=== PATIENT | male | born 1950 | race Caucasian/White ===

== ENCOUNTER 2020-05-23 20:40 | Inpatient (IN) | payer MEDICARE ==
[~2020-05-23] VITALS: Ht 167.6 cm; Wt 67.3 kg
[~2020-05-23 20:40] MED LIST: ADENOSINE 6 MG/2 ML VIAL. IV ONE; EPINEPHrine SYRINGE 1 MG/10 ML SYRINGE ONE; MAGNESIUM SULFATE PREMIX 1 GM/100 ML BAG. IV ONE
[2020-05-23] MEDS ORDERED: PROPOFOL 100 ML IV ONE (20:57)
[2020-05-23] MEDS ORDERED: IV NORMAL SALINE 1000ML BAG 1,000 ML IV ONE (21:00)
[2020-05-23] MEDS ORDERED: NOREPINEPHRINE VIAL 8 MG in IV DEXTROSE 5% 250 ML IV ONE (21:15)
[2020-05-23] MEDS ORDERED: MAGNESIUM SULFATE 2 GM IV ONE (21:16)
--- NOTE | 2020-05-23 21:32 | RAD ---
Exam: Chest one view INDICATION: Intubation TECHNIQUE: Frontal view of the chest Comparisons: None FINDINGS: Endotracheal tube with tip approximately 4 cm above the lian. Enteric tube traverses below the diap hragm distal tip not visualized. The cardiomediastinal silhouette and pulmonary vessels are within normal limits. Diffuse interstitial opacities throughout the lungs. No pleural effusion. IMPRESSION: 1. Lines and tubes described above. 2. Diffuse interstitial opacities throughout the lungs. Electronically signed by: Rishi Mccray MD (05/23/2020 9:29 PM) RAMON
[2020-05-23] MEDS ORDERED: HEPARIN for IV BOLUS 10,000 UNIT/10 ML VIAL. ONE (21:36)
[2020-05-23 21:41] LABS: BASO # 0.1 x10^3/uL (0.0-0.2); BASO % 1 % (0-3); EOS % 0 % (0-3); HEMATOCRIT 47.8 % (39.0-53.0); HEMOGLOBIN 15.7 g/dL (13.0-17.5); LYMPH # 1.7 x10^3/uL (1.0-4.8); LYMPH % 8 % (24-48); MEAN CORPUSCULAR HEMOGLOBIN 30 pg (25-35); MEAN CORPUSCULAR HGB CONC 33 g/dL (31-37); MEAN CORPUSCULAR VOLUME 90 fL (79-100); MONO # 1.1 x10^3/uL (0.0-1.1); MONO % 5 % (0-9); NEUT # 17.9 x10^3/uL (1.8-7.7); NEUT % 86 % (31-73); PLATELET COUNT 207 x10^3/uL (140-400); RED BLOOD COUNT 5.29 x10^6/uL (4.30-5.70); RED CELL DISTRIBUTION WIDTH 13.3 % (11.5-14.5); WHITE BLOOD COUNT 20.9 x10^3/uL (4.0-11.0)
[2020-05-23] MEDS ORDERED: LIDOCAINE 1% Multi-Dose 20 ML VIAL. ONE (21:55)
[2020-05-23] MEDS ORDERED: IODIXANOL 320 MG/ML 100 ML VIAL. ONE (21:56)
[2020-05-23] MEDS ORDERED: BIVALIRUDIN 250 MG VIAL. IV ONE ×2 (21:58→23:00)
[2020-05-23 22:00] LABS: CALCIUM 8.9 mg/dL (8.5-10.1); CREATININE 1.2 mg/dL (0.7-1.3); GFR 60.4; POTASSIUM 4.4 mmol/L (3.5-5.1)
[2020-05-23] MEDS ORDERED: EPINEPHrine VIAL 5 MG in IV NORMAL SALINE 250ML 250 ML IV ONE (22:00)
[2020-05-23] MEDS ORDERED: HEPARIN for IV BOLUS 10,000 UNIT/10 ML VIAL. IV ONE (22:00)
--- NOTE | 2020-05-23 22:00 | PDOC ---
MODERATE SEDATION ASSESSMENT RISKS/ALTERNATIVES Risks/Alternatives Risks and alternatives of this type of sedation and procedure discussed with: RISK/ALTERNATIVES: Sig. Other H & P ON CHART H & P H & P on chart and reviewed for co-morbid conditions and appropriate labs. H&P ON CHART: Yes STATUS PREG STATUS ASSESSED: N/A MEDS/ALLERGIES REVIEWED Meds/Allergies Reviewed Medications and Allergies including time and route of recently administered narcotics and sedatives. MEDS/ALLERGIES REVIEWED: Yes ASA RATING ASA RATING: III AIRWAY ASSESSMENT Airway Assessment Airway patency, oral function limitations, presence of caps, crowns, dentures, partials, and ability to extend neck assessed. AIRWAY ASSESSMENT: Yes MALLAMPATI SCORE MALLAMPATI SCORE: II PRE-SEDATION ASSESSMENT PRE-SEDATION ASSESSMENT: Yes FREEMAN RAY MD May 23, 2020 22:00
--- NOTE | 2020-05-23 22:00 | PDOC2 ---
CONSULT Date of Consult Date of Consult DATE: 05/23/20 TIME: 21:59 Reason for Consult Reason for Consult: Acute STEMI Referring Physician Referring Physician: Dr. Velasquez Identification/Chief Complaint Chief Complaint Syncope Source Source: Caregiver History of Present Illness Reason for Visit: 69-year-old male without any previous cardiac history apparently was at the [facility] with his when he started feeling nauseated and diaphoretic. They decided to leave the [facility], patient drove them to their house and had a drink of pop to relieve his nausea. He however continued to be diaphoretic and had shortness of breath per his . She went into a different room to take care of something and heard a loud thud and came out to find that her passed out. She called EMS who found patient to be in ventricular fibrillation upon arrival and started CPR and defibrillated the patient. Patient apparently was coded for 10 minutes prior to arrival to ED. Initial EKG showed sinus rhythm with right bundle branch block and hence plan was to rule out acute PE with CTA of the chest. He had to be intubated for acute respiratory failure. Patient apparently had another episode of ventricular tachycardia/fibrillation and was successfully defibrillated. Subsequent EKG obtained in the ED showed ST elevations in the inferior leads and hence code STEMI was activated. Patient was taken emergently for cardiac catheterization. Of note, patient's stated that patient never complained of chest pain Past Medical History Cardiovascular: No pertinent hx Past Surgical History Past Surgical History Hernia repair Family History Family History Negative for premature coronary disease Social History Social History Per his , patient smokes cigarettes and marijuana but does not have any history of heavy alcohol use or illicit drug use. Current Medications Current Medications Current Medications Sodium Chloride 1,000 ml @ 1,000 mls/hr 1X ONCE IV ; Start 05/23/20 at 21:00; Stop 05/23/20 at 21:59 Propofol 100 ml @ As Directed STK-MED ONCE IV ; Start 05/23/20 at 20:57; Stop 05/23/20 at 20:57; Status DC Norepinephrine Bitartrate 8 mg/ Dextrose 258 ml @ 11.61 mls/ hr 1X ONCE IV ; Start 05/23/20 at 21:15; Stop 05/24/20 at 19:28 Magnesium Sulfate 50 ml @ As Directed STK-MED ONCE IV ; Start 05/23/20 at 21:16; Stop 05/23/20 at 21:16; Status DC Epinephrine HCl 5 mg/Sodium Chloride 255 ml @ 0.306 mls/ hr 1X ONCE IV Last administered on 05/23/20at 21:33; Start 05/23/20 at 22:00; Stop 06/27/20 at 15:19 Heparin Sodium (Porcine) (Heparin Sodium) 10,000 unit STK-MED ONCE .ROUTE ; Start 05/23/20 at 21:36; Stop 05/23/20 at 21:37; Status DC Aspirin (Aspirin Rectal Supp) 300 mg 1X ONCE [place] Last administered on 05/23/20at 21:45; Start 05/23/20 at 22:30; Stop 05/23/20 at 22:31 Heparin Sodium (Porcine) (Heparin Sodium) 4,000 unit 1X ONCE IV Last administered on 05/23/20at 21:54; Start 05/23/20 at 22:00; Stop 05/23/20 at 22:01 Lidocaine HCl (Lidocaine 1% 20ml Vial) 20 ml STK-MED ONCE .ROUTE ; Start 05/23/20 at 21:55; Stop 05/23/20 at 21:56; Status DC Heparin Sodium/ Sodium Chloride 1,000 ml @ As Directed STK-MED ONCE .ROUTE ; Start 05/23/20 at 21:56; Stop 05/23/20 at 21:56; Status DC Iodixanol (Visipaque 320) 100 ml STK-MED ONCE .ROUTE ; Start 05/23/20 at 21:56; Stop 05/23/20 at 21:56; Status DC Bivalirudin (Angiomax) 250 mg STK-MED ONCE IV ; Start 05/23/20 at 21:58; Stop 05/23/20 at 21:58; Status DC Allergies Allergies: Coded Allergies: No Known Drug Allergies (Unverified , 05/23/20) ROS Review of System Cannot be obtained since patient is intubated Physical Exam General: Other (Intubated and sedated) Lungs: Clear to auscultation Heart: Regular rate Abdomen: Soft Extremities: No edema Vitals VITALS Vital Signs Date Time Temp Pulse Resp B/P (MAP) Pulse Ox O2 Delivery O2 Flow Rate FiO2 05/23/20 20:55 99 Ventilator Labs Labs Laboratory Tests Test 05/23/20 21:10 White Blood Count 20.9 x10^3/uL (4.0-11.0) Red Blood Count 5.29 x10^6/uL (4.30-5.70) Hemoglobin 15.7 g/dL (13.0-17.5) Hematocrit 47.8 % (39.0-53.0) Mean Corpuscular Volume 90 fL (79-100) Mean Corpuscular Hemoglobin 30 pg (25-35) Mean Corpuscular Hemoglobin Concent 33 g/dL (31-37) Red Cell Distribution Width 13.3 % (11.5-14.5) Platelet Count 207 x10^3/uL (140-400) Neutrophils (%) (Auto) 86 % (31-73) Lymphocytes (%) (Auto) 8 % (24-48) Monocytes (%) (Auto) 5 % (0-9) Eosinophils (%) (Auto) 0 % (0-3) Basophils (%) (Auto) 1 % (0-3) Neutrophils # (Auto) 17.9 x10^3/uL (1.8-7.7) Lymphocytes # (Auto) 1.7 x10^3/uL (1.0-4.8) Monocytes # (Auto) 1.1 x10^3/uL (0.0-1.1) Eosinophils # (Auto) 0.0 x10^3/uL (0.0-0.7) Basophils # (Auto) 0.1 x10^3/uL (0.0-0.2) Laboratory Tests Test 05/23/20 21:10 White Blood Count 20.9 x10^3/uL (4.0-11.0) Red Blood Count 5.29 x10^6/uL (4.30-5.70) Hemoglobin 15.7 g/dL (13.0-17.5) Hematocrit 47.8 % (39.0-53.0) Mean Corpuscular Volume 90 fL (79-100) Mean Corpuscular Hemoglobin 30 pg (25-35) Mean Corpuscular Hemoglobin Concent 33 g/dL (31-37) Red Cell Distribution Width 13.3 % (11.5-14.5) Platelet Count 207 x10^3/uL (140-400) Neutrophils (%) (Auto) 86 % (31-73) Lymphocytes (%) (Auto) 8 % (24-48) Monocytes (%) (Auto) 5 % (0-9) Eosinophils (%) (Auto) 0 % (0-3) Basophils (%) (Auto) 1 % (0-3) Neutrophils # (Auto) 17.9 x10^3/uL (1.8-7.7) Lymphocytes # (Auto) 1.7 x10^3/uL (1.0-4.8) Monocytes # (Auto) 1.1 x10^3/uL (0.0-1.1) Eosinophils # (Auto) 0.0 x10^3/uL (0.0-0.7) Basophils # (Auto) 0.1 x10^3/uL (0.0-0.2) Assessment/Plan Assessment/Plan 1. Acute inferoposterior wall ST elevation myocardial infarction. We will proceed with emergent cardiac catheterization and primary PCI/stent placement. Risks and benefits were explained to patient's and she is agreeable. Start aspirin, heparin. We will administer Angiomax for PCI and start Plavix post procedure. 2. Ischemic VT/VF, cardiac arrest s/p successful defibrillation/resuscitation. We will continue to monitor and if he continues to have arrhythmias post procedure, we will consider initiation of amiodarone. 3. Acute respiratory failure secondary to above s/p intubation. Consult pulmonary team for vent management. 4. Hypotension presently needing pressor support. We will wean pressors off as tolerated in ICU. 5. Tobacco abuse Thank you for your consultation Total critical care time spent evaluating the patient and discussing options with 45 minutes. FREEMAN RAY MD May 23, 2020 21:59
[2020-05-23] MEDS ORDERED: MIDAZOLAM HCL/PF 5 MG/5 ML VIAL. ONE (22:01)
[2020-05-23] MEDS ORDERED: ETOMIDATE 20 MG/10 ML VIAL. IV ONE (22:01)
[2020-05-23] MEDS ORDERED: SUCCINYLCHOLINE 200 MG/10 ML VIAL. ONE (22:02)
[2020-05-23 22:04] LABS: % BANDS 1 % (0-9); % LYMPHS 10 % (24-48); % MONOS 4 % (0-10); % SEGS 85 % (35-66)
[2020-05-23 22:05] LABS: PLT ESTIMATE ADEQUATE (ADEQUATE)
[2020-05-23 22:06] LABS: ALBUMIN 2.5 g/dL (3.4-5.0); ALBUMIN/GLOBULIN RATIO 0.7 (1.0-1.7); MAGNESIUM 1.9 mg/dL (1.8-2.4); TOTAL BILIRUBIN 0.4 mg/dL (0.2-1.0); TOTAL PROTEIN 5.9 g/dL (6.4-8.2)
--- NOTE | 2020-05-23 22:08 | PHYS DOC ---
General Adult EDM: Chief Complaint: CHEST PAIN-CARDIAC NATURE HPI: HPI: Patient is a 69 year old male presents via EMS after cardiac arrest. Patient is a smoke and currently on no prescription medications. states patient was not feeling well all day. Patient was complaining of nausea. heard patient collapse. 911 ems called--- CPR with epi and defibrillation-- Patient coded for 10 minutes prior to arrival. On arrival patient was being bagged. He had an I/O left lower extremity. Patient with agonal breathing and gsc 3. Review of Systems: Review of Systems: Unable to obtain due to medical condition Heart Score: Risk Factors: Risk Factors: DM, Current or recent (<one month) smoker, HTN, HLP, family history of CAD, obesity. Risk Scores: Score 0 - 3: 2.5% MACE over next 6 weeks - Discharge Home Score 4 - 6: 20.3% MACE over next 6 weeks - Admit for Clinical Observation Score 7 - 10: 72.7% MACE over next 6 weeks - Early Invasive Strategies Current Medications: Current Medications Medications (Trade) Dose Ordered Sig/Karma Start Time Stop Time Status Last Admin Dose Admin Aspirin (Aspirin Rectal Supp) 300 mg 1X ONCE 05/23/20 22:30 05/23/20 22:31 05/23/20 21:45 300 MG Epinephrine HCl 5 mg/Sodium Chloride 255 ml @ 0.306 mls/ hr 1X ONCE 05/23/20 22:00 06/27/20 15:19 05/23/20 21:33 0.306 MLS/HR Heparin Sodium (Porcine) (Heparin Sodium) 4,000 unit 1X ONCE 05/23/20 22:00 05/23/20 22:01 UNV 05/23/20 21:54 4,000 UNIT Heparin Sodium/ Sodium Chloride 1,000 ml @ As Directed STK-MED ONCE 05/23/20 21:56 05/23/20 21:56 DC Iodixanol (Visipaque 320) 100 ml STK-MED ONCE 05/23/20 21:56 05/23/20 21:56 DC Lidocaine HCl (Lidocaine 1% 20ml Vial) 20 ml STK-MED ONCE 05/23/20 21:55 05/23/20 21:56 DC Magnesium Sulfate 50 ml @ As Directed STK-MED ONCE 05/23/20 21:16 2/24/21 21:16 DC Norepinephrine Bitartrate 8 mg/ Dextrose 258 ml @ 11.61 mls/ hr 1X ONCE 05/23/20 21:15 05/24/20 19:28 Propofol 100 ml @ As Directed STK-MED ONCE 05/23/20 20:57 05/23/20 20:57 DC Sodium Chloride 1,000 ml @ 1,000 mls/hr 1X ONCE 05/23/20 21:00 05/23/20 21:59 Allergies: Allergies: Allergies Coded Allergies Type Severity Reaction Last Updated Verified No Known Drug Allergies 05/23/20 No Physical Exam: PE: General: Unresponsive in acute distress Skin: warm, dry and intact. Head:: Normocephalic, atraumatic. Neck: Trachea midline. CARDIOVASCULAR: Tachycardia RESPIRATORY: Agonal breathing MUSCULOSKELETAL: No deformities of extremities no edema noted I/O left lower extremity-femoral head GASTROINTESTINAL: Abdomen soft without rebound or guarding. NEUROLOGICAL: Unresponsive no seizure-like activity Current Patient Data: Labs: Laboratory Tests Test 05/23/20 21:10 White Blood Count 20.9 x10^3/uL (4.0-11.0) H Red Blood Count 5.29 x10^6/uL (4.30-5.70) Hemoglobin 15.7 g/dL (13.0-17.5) Hematocrit 47.8 % (39.0-53.0) Mean Corpuscular Volume 90 fL (79-100) Mean Corpuscular Hemoglobin 30 pg (25-35) Mean Corpuscular Hemoglobin Concent 33 g/dL (31-37) Red Cell Distribution Width 13.3 % (11.5-14.5) Platelet Count 207 x10^3/uL (140-400) Neutrophils (%) (Auto) 86 % (31-73) H Lymphocytes (%) (Auto) 8 % (24-48) L Monocytes (%) (Auto) 5 % (0-9) Eosinophils (%) (Auto) 0 % (0-3) Basophils (%) (Auto) 1 % (0-3) Neutrophils # (Auto) 17.9 x10^3/uL (1.8-7.7) H Lymphocytes # (Auto) 1.7 x10^3/uL (1.0-4.8) Monocytes # (Auto) 1.1 x10^3/uL (0.0-1.1) Eosinophils # (Auto) 0.0 x10^3/uL (0.0-0.7) Basophils # (Auto) 0.1 x10^3/uL (0.0-0.2) Platelet Estimate Pending Laboratory Tests 05/23/20 21:10 Vital Signs: Vital Signs Date Time Temp Pulse Resp B/P (MAP) Pulse Ox O2 Delivery O2 Flow Rate FiO2 05/23/20 20:55 99 Ventilator EKG: EKG: [] EKG #1 sinus tachycardia rate of [address] depression V2 V3 V4 V5 EKG taken at 2041 EKG #2 sinus tachycardia heart rate [address] elevation in leads II, III, aVF depression aVL V2 V3 V4 V5 taken at 2108 EKG #3 post cardiac arrest with return of ROSC Heart rate 79 bigeminy EKG taken at 2118 EKG #4 sinus tachycardia rate of 109 ST elevation in lead III aVF ST changes V2 V3 V4 V5 taken at 2124 Radiology/Procedures: Radiology/Procedures: [] Impression: TECHNIQUE: Frontal view of the chest Comparisons: None FINDINGS: Endotracheal tube with tip approximately 4 cm above the lian. Enteric tube traverses below the diaphragm distal tip not visualized. The cardiomediastinal silhouette and pulmonary vessels are within normal limits. Diffuse interstitial opacities throughout the lungs. No pleural effusion. IMPRESSION: 1. Lines and tubes described above. 2. Diffuse interstitial opacities throughout the lungs. Course & Med Decision Making: Course & Med Decision Making Procedure Intubation- patient was intubated using a glide scope. 8.0 cuffed tube was utilized. Once cords were visualized to was passed. Cuff was inflated. Placement ET tube was confirmed with bilateral breath sounds and on chest x-ray. Tube was secured by respiratory therapy with the device. ET tube was 24 at the teeth. Central venous [id number] central line placed in right femoral. Procedure was performed under sterile technique. Line was placed using S fredidinger technique. Line was sutured into place Biopatch was utilized no complications Pertinent Labs and Imaging studies reviewed. (See chart for details) [] Waited for chief complaint. Work-up consisted of laboratory analysis radiologic imaging and EKG. Shortly after arrival patient was intubated with no complications. Central venous access placed in right groin. During ER stay patient went into cardiac arrest--- patient was coded per ACLS protocol please see code sheet. Cardiology was consulted reviewed EKGs patient eventually taken to cardiac [facility] Discussed patient condition with significant other and brother. Informed patient is in critical condition and the plan at the time is to take patient to the [facility]. Critical care time 45 minutes. Dragon Disclaimer: Dragon Disclaimer: This electronic medical record was generated, in whole or in part, using a voice recognition dictation system. Departure Departure Impression: Primary Impression: Cardiac arrest Disposition: ADMITTED INPT THIS HOSP Admitting Physician: MADDI Condition: CRITICAL Referrals: UNKNOWN PCP NAME (PCP) CRYSTAL KELSEY DO May 23, 2020 22:08
[2020-05-23] MEDS ORDERED: CONTRAST GIVEN. MC PRN (22:15)
[2020-05-23 22:29] LABS: PROTHROMBIN TIME PATIENT 14.7 SEC (11.7-14.0)
[2020-05-23] MEDS ORDERED: ASPIRIN RECTAL 300 MG SUPP. PR ONE (22:30)
[2020-05-23] MEDS ORDERED: CLOPIDOGREL BISULFATE 75 MG TABLET ONE (22:45)
[2020-05-23] MEDS ORDERED: IODIXANOL 320 MG/ML 100 ML VIAL. IART ONE (23:00)
[2020-05-23] MEDS ORDERED: CLOPIDOGREL BISULFATE 75 MG TABLET PO ONE (23:00)
[2020-05-23] MEDS ORDERED: NITROGLYCERIN SUBLINGUAL 0.4 MG BOTTLE OF 25. SL PRN (23:00)
[2020-05-23] MEDS ORDERED: PIPERACILLIN/TAZOBACTAM 4.5 GM in IV NORMAL SALINE 100ML 100 ML IV ONE (23:00)
[2020-05-23] MEDS ORDERED: IOHEXOL 350 MG/ML 100 ML VIAL. IV ONE (23:00)
[2020-05-23] MEDS ORDERED: LIDOCAINE 1% Multi-Dose 20 ML VIAL. INJ ONE (23:00)
[2020-05-23 23:15] VITALS: BP 164/90
[2020-05-23] MEDS ORDERED: AMIODARONE 150 MG/3 ML VIAL IVP ONE (23:45)
[2020-05-23 23:59] LABS: BASE EXCESS COOX -11 mmol/L (-3-3); HCO3 COOX 16 mmol/L (21-28); METHEMOGLOBIN 0.4 % (0.0-1.9); PCO2 COOX 38 mmHg (35-46); PO2 COOX 125 mmHg (65-108); SAT O2 COOX 98 % (92-99)
[2020-05-24] VITALS (28 sets, daily range): BP systolic 86–168; BP diastolic 57–85
[2020-05-24] MEDS ORDERED: ETOMIDATE 20 MG/10 ML VIAL. IV ONE
[2020-05-24] MEDS ORDERED: SUCCINYLCHOLINE 200 MG/10 ML VIAL. IV ONE
[2020-05-24] MEDS ORDERED: MIDAZOLAM HCL/PF 5 MG/5 ML VIAL. IV ONE
[2020-05-24] MEDS ORDERED: IV NORMAL SALINE 1000ML BAG 1,000 ML IV ONE ×2
[2020-05-24] MEDS ORDERED: EPINEPHrine SYRINGE 1 MG/10 ML SYRINGE IV ONE ×2 (00:15)
[2020-05-24] MEDS ORDERED: MAGNESIUM SULFATE 1GM 100 ML IV ONE (00:15)
[2020-05-24] MEDS ORDERED: MAGNESIUM SULFATE 2GM 50 ML IV ONE (00:30)
[2020-05-24] MEDS: IV 1/2 NORMAL SALINE 1,000 ML IV SCH ×2 (00:51→00:57)
--- NOTE | 2020-05-24 01:30 | NUR ---
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 Report from DOTTIE Henson from director of laboratory operations. Previous report from DOTTIE Penny/ED. Intubated, OG, and velazquez in place. Propofol, levophed, epi and NS infusing. Angiomax complete. Per paperwork patient with RCA stent. Angiocele in place, dry and intact. Bilateral lower extremities mottled, cool. Palpable pedal pulses. Blood cultures and Covid swab in ED. Dr. Nguyen notified of patient condition and blood gases. Order received to decreased tidal volumes. Notified RT Geo of changes. Changes made by RT Geo. Epi discontinued. NS changed to 1/2NS. Levophed and propofol titrated. Fentanyl for continuous pain control. VSS at this time. Will continue to monitor.
[2020-05-24] MEDS: PROPOFOL 100 ML IV PRN ×4 (03:27→20:40)
--- NOTE | 2020-05-24 04:17 | EKG ---
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
--- NOTE | 2020-05-24 04:24 | NUR ---
Contacted by [facility] Amira Umaña for information regarding patient's son who is in the . Advised to notify [facility] [place] of change in patient condition in order to provide information to son and reference case number. [facility] [phone] Case # [id number]
--- NOTE | 2020-05-24 04:28 | EKG ---
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
--- NOTE | 2020-05-24 04:28 | EKG ---
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
[2020-05-24 04:32] LABS: CHOLESTEROL/HDL RATIO 3.2
--- NOTE | 2020-05-24 07:17 | RAD ---
Study: XR CHEST 1V Indication: Endotracheal tube positioning. Comparison: 05/23/2020 Findings: Endotracheal tube tip 3 cm above the lian. Enteric tube terminates below the inferior field of view . Granular densities persist throughout both lungs. Increasing atelectasis at the right lung base. No p neumothorax. Impression: 1. Unchanged endotracheal tube position. 2. Overall similar extent of granular opacities throughout both lungs. Increasing basilar volume loss on the right. Electronically signed by: LORRAINE DALEY MD (05/24/2020 7:15 AM) [facility]
[2020-05-24 07:41] LABS: BASE EXCESS ABG -3 mmol/L (-3-3); HCO3 ABG 23 mmol/L (21-28); PCO2 ABG 42 mmHg (35-46); PO2 ABG 186 mmHg (65-108); SAT O2 ABG 99 % (92-99)
--- NOTE | 2020-05-24 08:23 | PDOC1 ---
History and Physical Date of Admission Date of Admission DATE: 05/24/20 TIME: 08:22 Identification/Chief Complaint Chief Complaint 69 YR OLD WM previous cardiac history apparently [facility] when he started feeling nauseated and diaphoretic. decided to leave the [employer], patient drove them to their house and had a drink of pop to relieve his nausea., continued to be diaphoretic and had shortness of breath per his . She went into a different room to take care of something and heard a loud thud and came out to find that her passed out. She called EMS who found patient to be in ventricular fibrillation upon arrival and started CPR and defibrillated the patient. coded for 10 minutes prior to arrival to ED. Initial EKG showed sinus rhythm with right bundle branch block and hence plan was to rule out acute PE with CTA of the chest. 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 AM Past Medical History Past Medical History Family History Family History: High Cholestrol, Hypertension Social History Smoke: <1 pack per day ALCOHOL: none Drugs: None Current Problem List Problem List Problems Medical Problems: (1) Cardiac arrest Status: Acute Current Medications Current Medications Current Medications Sodium Chloride 1,000 ml @ 1,000 mls/hr 1X ONCE IV Last administered on 05/23/20at 20:50; Start 05/23/20 at 21:00; Stop 05/23/20 at 21:59; Status DC Propofol 100 ml @ As Directed STK-MED ONCE IV ; Start 05/23/20 at 20:57; Stop 05/23/20 at 20:57; Status DC Norepinephrine Bitartrate 8 mg/ Dextrose 258 ml @ 11.61 mls/ hr 1X ONCE IV ; Start 05/23/20 at 21:15; Stop 05/24/20 at 19:28 Magnesium Sulfate 0 ml @ As Directed STK-MED ONCE IV ; Start 05/23/20 at 21:16; Stop 05/23/20 at 21:16; Status DC Epinephrine HCl 5 mg/Sodium Chloride 255 ml @ 0.306 mls/ hr 1X ONCE IV Last administered on 05/23/20at 21:33; Start 05/23/20 at 22:00; Stop 06/27/20 at 15:19 Heparin Sodium (Porcine) (Heparin Sodium) 10,000 unit STK-MED ONCE .ROUTE ; Start 05/23/20 at 21:36; Stop 05/23/20 at 21:37; Status DC Aspirin (Aspirin Rectal Supp) 300 mg 1X ONCE [place] Last administered on 05/23/20at 21:45; Start 05/23/20 at 22:30; Stop 05/23/20 at 22:31; Status DC Heparin Sodium (Porcine) (Heparin Sodium) 4,000 unit 1X ONCE IV Last administered on 05/23/20at 21:54; Start 05/23/20 at 22:00; Stop 05/23/20 at 22:01; Status DC Lidocaine HCl (Lidocaine 1% 20ml Vial) 20 ml STK-MED ONCE .ROUTE ; Start 05/23/20 at 21:55; Stop 05/23/20 at 21:56; Status DC Heparin Sodium/ Sodium Chloride 1,000 ml @ As Directed STK-MED ONCE .ROUTE ; Start 05/23/20 at 21:56; Stop 05/23/20 at 21:56; Status DC Iodixanol (Visipaque 320) 100 ml STK-MED ONCE .ROUTE ; Start 05/23/20 at 21:56; Stop 05/23/20 at 21:56; Status DC Bivalirudin (Angiomax) 250 mg STK-MED ONCE IV ; Start 05/23/20 at 21:58; Stop 05/23/20 at 21:58; Status DC Etomidate (Amidate) 20 mg STK-MED ONCE IV ; Start 05/23/20 at 22:01; Stop 05/23/20 at 22:02; Status DC Midazolam HCl (Versed) 5 mg STK-MED ONCE .ROUTE ; Start 05/23/20 at 22:01; Stop 05/23/20 at 22:02; Status DC Succinylcholine Chloride (Anectine) 200 mg STK-MED ONCE .ROUTE ; Start 05/23/20 at 22:02; Stop 05/23/20 at 22:02; Status DC Iohexol (Omnipaque 350 Mg/ml) 100 ml 1X ONCE IV ; Start 05/23/20 at 23:00; Stop 05/23/20 at 23:01; Status DC Info (CONTRAST GIVEN -- Rx MONITORING) 1 each PRN DAILY PRN MC SEE COMMENTS; Start 05/23/20 at 22:15; Stop 05/25/20 at 22:14 Piperacillin Sod/ Tazobactam Sod 4.5 gm/Sodium Chloride 100 ml @ 200 mls/hr 1X ONCE IV Last administered on 05/24/20at 00:49; Start 05/23/20 at 23:00; Stop 05/23/20 at 23:29; Status DC Heparin Sodium/ Sodium Chloride (HEPARIN for ARTERIAL LINE FLUSH) 1,000 unit 1X ONCE IART Last administered on 05/23/20at 23:19; Start 05/23/20 at 23:00; Stop 05/23/20 at 23:01; Status DC Iodixanol (Visipaque 320) 100 ml 1X ONCE IART Last administered on 05/23/20at 23:19; Start 05/23/20 at 23:00; Stop 05/23/20 at 23:01; Status DC Bivalirudin (Angiomax) 250 mg 1X ONCE IV Last administered on 05/23/20at 23:23; Start 05/23/20 at 23:00; Stop 05/23/20 at 23:01; Status DC Lidocaine HCl (Lidocaine 1% 20ml Vial) 20 ml 1X ONCE INJ Last administered on 05/23/20at 23:22; Start 05/23/20 at 23:00; Stop 05/23/20 at 23:01; Status DC Clopidogrel Bisulfate (Plavix) 600 mg 1X ONCE PO Last administered on 05/23/20at 23:23; Start 05/23/20 at 23:00; Stop 05/23/20 at 23:01; Status DC Clopidogrel Bisulfate (Plavix) 75 mg STK-MED ONCE .ROUTE ; Start 05/23/20 at 22:45; Stop 05/23/20 at 22:45; Status DC Sodium Chloride 1,000 ml @ 75 mls/hr [id number] IV Last administered on 05/24/20at 00:57; Start 05/23/20 at 23:00 Aspirin (Ecotrin) 325 mg DAILYWBKFT PO ; Start 05/24/20 at 08:00 Clopidogrel Bisulfate (Plavix) 75 mg DAILYWBKFT PO ; Start 05/24/20 at 08:00 Metoprolol Tartrate (Lopressor) 12.5 mg BID PO ; Start 05/24/20 at 09:00 Atorvastatin Calcium (Lipitor) 40 mg QHS PO ; Start 05/24/20 at 21:00 Nitroglycerin (Nitrostat) 0.4 mg PRN Q5MIN PRN SL CHEST PAIN; Start 05/23/20 at 23:00 Fentanyl Citrate 30 ml @ 0 mls/hr CONT PRN IV SEE PROTOCOL Last administered on 05/24/20at 00:44; Start 05/23/20 at 23:15 Propofol 100 ml @ 0 mls/hr CONT PRN IV PER PROTOCOL Last administered on 05/24/20at 07:41; Start 05/23/20 at 23:15 Amiodarone HCl (Cordarone) 300 mg 1X ONCE IVP Last administered on 05/23/20at 21:23; Start 05/23/20 at 23:45; Stop 05/23/20 at 23:46; Status DC Etomidate (Amidate) 20 mg 1X ONCE IV Last administered on 05/23/20at 20:43; Start 05/24/20 at 00:00; Stop 05/24/20 at 00:03; Status DC Succinylcholine Chloride (Anectine) 100 mg 1X ONCE IV Last administered on 05/23/20at 20:43; Start 05/24/20 at 00:00; Stop 05/24/20 at 00:03; Status DC Midazolam HCl (Versed) 10 mg 1X ONCE IV Last administered on 05/23/20at 20:56; Start 05/24/20 at 00:00; Stop 05/24/20 at 00:03; Status DC Magnesium Sulfate 50 ml @ 25 mls/hr 1X ONCE IV Last administered on 05/24/20at 04:40; Start 05/24/20 at 00:30; Stop 05/24/20 at 02:29; Status DC Sodium Chloride 1,000 ml @ 1,000 mls/hr 1X ONCE IV Last administered on 05/23/20at 21:00; Start 05/24/20 at 00:00; Stop 05/24/20 at 00:59; Status DC Sodium Chloride 1,000 ml @ 1,000 mls/hr 1X ONCE IV Last administered on 05/24/20at 00:53; Start 05/24/20 at 00:00; Stop 05/24/20 at 00:59; Status DC Magnesium Sulfate/ Dextrose 100 ml @ 100 mls/hr 1X ONCE IV Last administered on 05/23/20at 21:20; Start 05/24/20 at 00:15; Stop 05/24/20 at 01:14; Status DC Epinephrine HCl (EPINEPHrine SYRINGE) 1 mg 1X ONCE IV Last administered on 05/23/20at 21:16; Start 05/24/20 at 00:15; Stop 05/24/20 at 00:20; Status DC Epinephrine HCl (EPINEPHrine SYRINGE) 1 mg 1X ONCE IV Last administered on 05/23/20at 21:29; Start 05/24/20 at 00:15; Stop 05/24/20 at 00:20; Status DC Allergies Allergies: Coded Allergies: No Known Drug Allergies (Unverified , 05/23/20) ROS Review of System UNABLE TO PROVID, SEDATED ON VENT Physical Exam General: No acute distress Lungs: Clear to auscultation Abdomen: Normal bowel sounds, Soft Rectal Exam: not examined Extremities: No cyanosis, No edema Vitals Vitals Vital Signs Date Time Temp Pulse Resp B/P (MAP) Pulse Ox O2 Delivery O2 Flow Rate FiO2 05/24/20 07:55 100 Ventilator 05/24/20 07:26 98.7 89 20 161/85 (110) 98.7 Labs Labs Laboratory Tests Test 05/23/20 21:10 05/23/20 21:30 05/23/20 23:56 05/24/20 03:45 White Blood Count 20.9 x10^3/uL (4.0-11.0) Red Blood Count 5.29 x10^6/uL (4.30-5.70) Hemoglobin 15.7 g/dL (13.0-17.5) Hematocrit 47.8 % (39.0-53.0) Mean Corpuscular Volume 90 fL (79-100) Mean Corpuscular Hemoglobin 30 pg (25-35) Mean Corpuscular Hemoglobin Concent 33 g/dL (31-37) Red Cell Distribution Width 13.3 % (11.5-14.5) Platelet Count 207 x10^3/uL (140-400) Neutrophils (%) (Auto) 86 % (31-73) Lymphocytes (%) (Auto) 8 % (24-48) Monocytes (%) (Auto) 5 % (0-9) Eosinophils (%) (Auto) 0 % (0-3) Basophils (%) (Auto) 1 % (0-3) Neutrophils # (Auto) 17.9 x10^3/uL (1.8-7.7) Lymphocytes # (Auto) 1.7 x10^3/uL (1.0-4.8) Monocytes # (Auto) 1.1 x10^3/uL (0.0-1.1) Eosinophils # (Auto) 0.0 x10^3/uL (0.0-0.7) Basophils # (Auto) 0.1 x10^3/uL (0.0-0.2) Segmented Neutrophils % 85 % (35-66) Band Neutrophils % 1 % (0-9) Lymphocytes % 10 % (24-48) Monocytes % 4 % (0-10) Platelet Estimate Adequate (ADEQUATE) Prothrombin Time 14.7 SEC (11.7-14.0) Prothromb Time International Ratio 1.2 (0.8-1.1) Activated Partial Thromboplast Time 35 SEC (24-38) D-Dimer (Reanna) > 20.00 ug/mlFEU Sodium Level 137 mmol/L (136-145) Potassium Level 4.4 mmol/L (3.5-5.1) Chloride Level 102 mmol/L (98-107) Carbon Dioxide Level 21 mmol/L (21-32) Anion Gap 14 (6-14) Blood Urea Nitrogen 10 mg/dL (8-26) Creatinine 1.2 mg/dL (0.7-1.3) Estimated GFR (Cockcroft-Gault) 60.4 BUN/Creatinine Ratio 8 (6-20) Glucose Level 264 mg/dL (70-99) Lactic Acid Level 8.3 mmol/L (0.4-2.0) Calcium Level 8.9 mg/dL (8.5-10.1) Magnesium Level 1.9 mg/dL (1.8-2.4) 1.9 mg/dL (1.8-2.4) Total Bilirubin 0.4 mg/dL (0.2-1.0) Aspartate Amino Transf (AST/SGOT) 33 U/L (15-37) Alanine Aminotransferase (ALT/SGPT) 35 U/L (16-63) Alkaline Phosphatase 90 U/L (46-116) Troponin I Quantitative 0.066 ng/mL (0.000-0.055) 5.355 ng/mL (0.000-0.055) OX-Vtr-D-Type Natriuretic Peptide 199 pg/mL (0-124) Total Protein 5.9 g/dL (6.4-8.2) Albumin 2.5 g/dL (3.4-5.0) Albumin/Globulin Ratio 0.7 (1.0-1.7) SARS-CoV-2 Antigen (Rapid) Negative (NEGATIVE) O2 Saturation 98 % (92-99) Arterial Blood pH 7.24 (7.35-7.45) Arterial Blood pCO2 at Patient Temp 38 mmHg (35-46) Arterial Blood pO2 at Patient Temp 125 mmHg (65-108) Arterial Blood HCO3 16 mmol/L (21-28) Arterial Blood Base Excess -11 mmol/L (-3-3) Oxyhemoglobin 96.0 % Methemoglobin 0.4 % (0.0-1.9) Carbon Monoxide, Quantitative 1.6 % (0.0-1.9) FiO2 100 Triglycerides Level 108 mg/dL (0-150) Cholesterol Level 136 mg/dL (0-200) LDL Cholesterol, Calculated 72 mg/dL (0-100) VLDL Cholesterol, Calculated 22 mg/dL (0-40) Non-HDL Cholesterol Calculated 94 mg/dL (0-129) HDL Cholesterol 42 mg/dL (40-60) Cholesterol/HDL Ratio 3.2 Laboratory Tests Test 05/23/20 21:10 05/23/20 21:30 05/23/20 23:56 05/24/20 03:45 White Blood Count 20.9 x10^3/uL (4.0-11.0) Red Blood Count 5.29 x10^6/uL (4.30-5.70) Hemoglobin 15.7 g/dL (13.0-17.5) Hematocrit 47.8 % (39.0-53.0) Mean Corpuscular Volume 90 fL (79-100) Mean Corpuscular Hemoglobin 30 pg (25-35) Mean Corpuscular Hemoglobin Concent 33 g/dL (31-37) Red Cell Distribution Width 13.3 % (11.5-14.5) Platelet Count 207 x10^3/uL (140-400) Neutrophils (%) (Auto) 86 % (31-73) Lymphocytes (%) (Auto) 8 % (24-48) Monocytes (%) (Auto) 5 % (0-9) Eosinophils (%) (Auto) 0 % (0-3) Basophils (%) (Auto) 1 % (0-3) Neutrophils # (Auto) 17.9 x10^3/uL (1.8-7.7) Lymphocytes # (Auto) 1.7 x10^3/uL (1.0-4.8) Monocytes # (Auto) 1.1 x10^3/uL (0.0-1.1) Eosinophils # (Auto) 0.0 x10^3/uL (0.0-0.7) Basophils # (Auto) 0.1 x10^3/uL (0.0-0.2) Segmented Neutrophils % 85 % (35-66) Band Neutrophils % 1 % (0-9) Lymphocytes % 10 % (24-48) Monocytes % 4 % (0-10) Platelet Estimate Adequate (ADEQUATE) Prothrombin Time 14.7 SEC (11.7-14.0) Prothromb Time International Ratio 1.2 (0.8-1.1) Activated Partial Thromboplast Time 35 SEC (24-38) D-Dimer (Reanna) > 20.00 ug/mlFEU Sodium Level 137 mmol/L (136-145) Potassium Level 4.4 mmol/L (3.5-5.1) Chloride Level 102 mmol/L (98-107) Carbon Dioxide Level 21 mmol/L (21-32) Anion Gap 14 (6-14) Blood Urea Nitrogen 10 mg/dL (8-26) Creatinine 1.2 mg/dL (0.7-1.3) Estimated GFR (Cockcroft-Gault) 60.4 BUN/Creatinine Ratio 8 (6-20) Glucose Level 264 mg/dL (70-99) Lactic Acid Level 8.3 mmol/L (0.4-2.0) Calcium Level 8.9 mg/dL (8.5-10.1) Magnesium Level 1.9 mg/dL (1.8-2.4) 1.9 mg/dL (1.8-2.4) Total Bilirubin 0.4 mg/dL (0.2-1.0) Aspartate Amino Transf (AST/SGOT) 33 U/L (15-37) Alanine Aminotransferase (ALT/SGPT) 35 U/L (16-63) Alkaline Phosphatase 90 U/L (46-116) Troponin I Quantitative 0.066 ng/mL (0.000-0.055) 5.355 ng/mL (0.000-0.055) LC-Ndz-B-Type Natriuretic Peptide 199 pg/mL (0-124) Total Protein 5.9 g/dL (6.4-8.2) Albumin 2.5 g/dL (3.4-5.0) Albumin/Globulin Ratio 0.7 (1.0-1.7) SARS-CoV-2 Antigen (Rapid) Negative (NEGATIVE) O2 Saturation 98 % (92-99) Arterial Blood pH 7.24 (7.35-7.45) Arterial Blood pCO2 at Patient Temp 38 mmHg (35-46) Arterial Blood pO2 at Patient Temp 125 mmHg (65-108) Arterial Blood HCO3 16 mmol/L (21-28) Arterial Blood Base Excess -11 mmol/L (-3-3) Oxyhemoglobin 96.0 % Methemoglobin 0.4 % (0.0-1.9) Carbon Monoxide, Quantitative 1.6 % (0.0-1.9) FiO2 100 Triglycerides Level 108 mg/dL (0-150) Cholesterol Level 136 mg/dL (0-200) LDL Cholesterol, Calculated 72 mg/dL (0-100) VLDL Cholesterol, Calculated 22 mg/dL (0-40) Non-HDL Cholesterol Calculated 94 mg/dL (0-129) HDL Cholesterol 42 mg/dL (40-60) Cholesterol/HDL Ratio 3.2 Images Images Exam: Chest one view INDICATION: Intubation TECHNIQUE: Frontal view of the chest Comparisons: None FINDINGS: Endotracheal tube with tip approximately 4 cm above the lian. Enteric tube traverses below the diaphragm distal tip not visualized. The cardiomediastinal silhouette and pulmonary vessels are within normal limits. Diffuse interstitial opacities throughout the lungs. No pleural effusion. IMPRESSION: 1. Lines and tubes described above. 2. Diffuse interstitial opacities throughout the lungs. Electronically signed by: Rishi Flores MD (05/23/2020 9:29 PM) [facility] DICTATED and SIGNED BY: RISHI FLORES MD DATE: 05/23/20 [id number] tudy: XR CHEST 1V Indication: Endotracheal tube positioning. Comparison: 05/23/2020 Findings: Endotracheal tube tip 3 cm above the lian. Enteric tube terminates below the inferior field of view. Granular densities persist throughout both lungs. Increasing atelectasis at the right lung base. No pneumothorax. Impression: 1. Unchanged endotracheal tube position. 2. Overall similar extent of granular opacities throughout both lungs. Increasing basilar volume loss on the right. Electronically signed by: LORRAINE DALEY MD (05/24/2020 7:15 AM) [facility] DICTATED and SIGNED BY: LORRAINE DALEY MD DATE: 05/24/20 [id number] VTE Prophylaxis Ordered VTE Prophylaxis Devices: Yes VTE Pharmacological Prophylaxi: Yes Assessment/Plan Assessment/Plan Impression: Cardiac arrest Severe single-vessel coronary disease involving the right coronary artery Successful PCI/drug-eluting stent placement to RCA Normal left ventricle systolic function with ejection fraction estimated at 55% STEMI. Tobacco abuse disorder ischemic v tach ADMITTED icu bed Aspirin 325 mg daily Plavix 75 mg daily wean off pressors and ventilator CARDIOLOGY CONSULT PULM CONSULT gi prophylaxis emergent cardiac catheterization and primary PCI/stent placement. CTA OF CHEST URINE DRUG SCREEN CBC IN AM Procalcitonin 60 min cc time dictated Justifications for Admission Other Justification FRIEDA TEAGUE MD May 24, 2020 08:23
[2020-05-24] MEDS: METOPROLOL TART IMMED RELEASE 25 MG TABLET. PO SCH ×2 (08:40→20:41)
[2020-05-24] MEDS: ASPIRIN ENTERIC COATED 325 MG TABLET.DR. PO SCH (08:40)
[2020-05-24] MEDS: CLOPIDOGREL BISULFATE 75 MG TABLET PO SCH (08:40)
[2020-05-24 09:36] LABS: CREATININE 0.9 mg/dL (0.7-1.3); GFR 84.2; POTASSIUM 4.9 mmol/L (3.5-5.1)
[2020-05-24 09:39] LABS: FIO2 ABG 70/VENT
--- NOTE | 2020-05-24 10:05 | EKG ---
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
--- NOTE | 2020-05-24 12:09 | PDOC ---
PULMONARY PROGRESS NOTES DATE: 05/24/20 TIME: 12:08 Vitals Vital Signs Date Time Temp Pulse Resp B/P (MAP) Pulse Ox O2 Delivery O2 Flow Rate FiO2 05/24/20 11:33 100 Ventilator 05/24/20 10:05 97 20 136/78 (97) 05/24/20 07:26 98.7 98.7 Labs Laboratory Tests Test 05/23/20 21:10 05/23/20 21:30 05/23/20 23:56 05/24/20 03:45 White Blood Count 20.9 x10^3/uL (4.0-11.0) Red Blood Count 5.29 x10^6/uL (4.30-5.70) Hemoglobin 15.7 g/dL (13.0-17.5) Hematocrit 47.8 % (39.0-53.0) Mean Corpuscular Volume 90 fL (79-100) Mean Corpuscular Hemoglobin 30 pg (25-35) Mean Corpuscular Hemoglobin Concent 33 g/dL (31-37) Red Cell Distribution Width 13.3 % (11.5-14.5) Platelet Count 207 x10^3/uL (140-400) Neutrophils (%) (Auto) 86 % (31-73) Lymphocytes (%) (Auto) 8 % (24-48) Monocytes (%) (Auto) 5 % (0-9) Eosinophils (%) (Auto) 0 % (0-3) Basophils (%) (Auto) 1 % (0-3) Neutrophils # (Auto) 17.9 x10^3/uL (1.8-7.7) Lymphocytes # (Auto) 1.7 x10^3/uL (1.0-4.8) Monocytes # (Auto) 1.1 x10^3/uL (0.0-1.1) Eosinophils # (Auto) 0.0 x10^3/uL (0.0-0.7) Basophils # (Auto) 0.1 x10^3/uL (0.0-0.2) Segmented Neutrophils % 85 % (35-66) Band Neutrophils % 1 % (0-9) Lymphocytes % 10 % (24-48) Monocytes % 4 % (0-10) Platelet Estimate Adequate (ADEQUATE) Prothrombin Time 14.7 SEC (11.7-14.0) Prothromb Time International Ratio 1.2 (0.8-1.1) Activated Partial Thromboplast Time 35 SEC (24-38) D-Dimer (Reanna) > 20.00 ug/mlFEU Sodium Level 137 mmol/L (136-145) Potassium Level 4.4 mmol/L (3.5-5.1) Chloride Level 102 mmol/L (98-107) Carbon Dioxide Level 21 mmol/L (21-32) Anion Gap 14 (6-14) Blood Urea Nitrogen 10 mg/dL (8-26) Creatinine 1.2 mg/dL (0.7-1.3) Estimated GFR (Cockcroft-Gault) 60.4 BUN/Creatinine Ratio 8 (6-20) Glucose Level 264 mg/dL (70-99) Lactic Acid Level 8.3 mmol/L (0.4-2.0) Calcium Level 8.9 mg/dL (8.5-10.1) Magnesium Level 1.9 mg/dL (1.8-2.4) 1.9 mg/dL (1.8-2.4) Total Bilirubin 0.4 mg/dL (0.2-1.0) Aspartate Amino Transf (AST/SGOT) 33 U/L (15-37) Alanine Aminotransferase (ALT/SGPT) 35 U/L (16-63) Alkaline Phosphatase 90 U/L (46-116) Troponin I Quantitative 0.066 ng/mL (0.000-0.055) 5.355 ng/mL (0.000-0.055) IK-Gkv-F-Type Natriuretic Peptide 199 pg/mL (0-124) Total Protein 5.9 g/dL (6.4-8.2) Albumin 2.5 g/dL (3.4-5.0) Albumin/Globulin Ratio 0.7 (1.0-1.7) SARS-CoV-2 Antigen (Rapid) Negative (NEGATIVE) O2 Saturation 98 % (92-99) Arterial Blood pH 7.24 (7.35-7.45) Arterial Blood pCO2 at Patient Temp 38 mmHg (35-46) Arterial Blood pO2 at Patient Temp 125 mmHg (65-108) Arterial Blood HCO3 16 mmol/L (21-28) Arterial Blood Base Excess -11 mmol/L (-3-3) Oxyhemoglobin 96.0 % Methemoglobin 0.4 % (0.0-1.9) Carbon Monoxide, Quantitative 1.6 % (0.0-1.9) FiO2 100 Triglycerides Level 108 mg/dL (0-150) Cholesterol Level 136 mg/dL (0-200) LDL Cholesterol, Calculated 72 mg/dL (0-100) VLDL Cholesterol, Calculated 22 mg/dL (0-40) Non-HDL Cholesterol Calculated 94 mg/dL (0-129) HDL Cholesterol 42 mg/dL (40-60) Cholesterol/HDL Ratio 3.2 Test 05/24/20 07:30 05/24/20 09:00 O2 Saturation 99 % (92-99) Arterial Blood pH 7.35 (7.35-7.45) Arterial Blood pCO2 at Patient Temp 42 mmHg (35-46) Arterial Blood pO2 at Patient Temp 186 mmHg (65-108) Arterial Blood HCO3 23 mmol/L (21-28) Arterial Blood Base Excess -3 mmol/L (-3-3) FiO2 70/vent Sodium Level 139 mmol/L (136-145) Potassium Level 4.9 mmol/L (3.5-5.1) Chloride Level 106 mmol/L (98-107) Carbon Dioxide Level 26 mmol/L (21-32) Anion Gap 7 (6-14) Blood Urea Nitrogen 11 mg/dL (8-26) Creatinine 0.9 mg/dL (0.7-1.3) Estimated GFR (Cockcroft-Gault) 84.2 Glucose Level 95 mg/dL (70-99) Lactic Acid Level 1.1 mmol/L (0.4-2.0) Calcium Level 8.0 mg/dL (8.5-10.1) Laboratory Tests Test 05/23/20 21:10 05/23/20 21:30 05/23/20 23:56 05/24/20 03:45 White Blood Count 20.9 x10^3/uL (4.0-11.0) Red Blood Count 5.29 x10^6/uL (4.30-5.70) Hemoglobin 15.7 g/dL (13.0-17.5) Hematocrit 47.8 % (39.0-53.0) Mean Corpuscular Volume 90 fL (79-100) Mean Corpuscular Hemoglobin 30 pg (25-35) Mean Corpuscular Hemoglobin Concent 33 g/dL (31-37) Red Cell Distribution Width 13.3 % (11.5-14.5) Platelet Count 207 x10^3/uL (140-400) Neutrophils (%) (Auto) 86 % (31-73) Lymphocytes (%) (Auto) 8 % (24-48) Monocytes (%) (Auto) 5 % (0-9) Eosinophils (%) (Auto) 0 % (0-3) Basophils (%) (Auto) 1 % (0-3) Neutrophils # (Auto) 17.9 x10^3/uL (1.8-7.7) Lymphocytes # (Auto) 1.7 x10^3/uL (1.0-4.8) Monocytes # (Auto) 1.1 x10^3/uL (0.0-1.1) Eosinophils # (Auto) 0.0 x10^3/uL (0.0-0.7) Basophils # (Auto) 0.1 x10^3/uL (0.0-0.2) Segmented Neutrophils % 85 % (35-66) Band Neutrophils % 1 % (0-9) Lymphocytes % 10 % (24-48) Monocytes % 4 % (0-10) Platelet Estimate Adequate (ADEQUATE) Prothrombin Time 14.7 SEC (11.7-14.0) Prothromb Time International Ratio 1.2 (0.8-1.1) Activated Partial Thromboplast Time 35 SEC (24-38) D-Dimer (Reanna) > 20.00 ug/mlFEU Sodium Level 137 mmol/L (136-145) Potassium Level 4.4 mmol/L (3.5-5.1) Chloride Level 102 mmol/L (98-107) Carbon Dioxide Level 21 mmol/L (21-32) Anion Gap 14 (6-14) Blood Urea Nitrogen 10 mg/dL (8-26) Creatinine 1.2 mg/dL (0.7-1.3) Estimated GFR (Cockcroft-Gault) 60.4 BUN/Creatinine Ratio 8 (6-20) Glucose Level 264 mg/dL (70-99) Lactic Acid Level 8.3 mmol/L (0.4-2.0) Calcium Level 8.9 mg/dL (8.5-10.1) Magnesium Level 1.9 mg/dL (1.8-2.4) 1.9 mg/dL (1.8-2.4) Total Bilirubin 0.4 mg/dL (0.2-1.0) Aspartate Amino Transf (AST/SGOT) 33 U/L (15-37) Alanine Aminotransferase (ALT/SGPT) 35 U/L (16-63) Alkaline Phosphatase 90 U/L (46-116) Troponin I Quantitative 0.066 ng/mL (0.000-0.055) 5.355 ng/mL (0.000-0.055) IU-Wsj-Q-Type Natriuretic Peptide 199 pg/mL (0-124) Total Protein 5.9 g/dL (6.4-8.2) Albumin 2.5 g/dL (3.4-5.0) Albumin/Globulin Ratio 0.7 (1.0-1.7) SARS-CoV-2 Antigen (Rapid) Negative (NEGATIVE) O2 Saturation 98 % (92-99) Arterial Blood pH 7.24 (7.35-7.45) Arterial Blood pCO2 at Patient Temp 38 mmHg (35-46) Arterial Blood pO2 at Patient Temp 125 mmHg (65-108) Arterial Blood HCO3 16 mmol/L (21-28) Arterial Blood Base Excess -11 mmol/L (-3-3) Oxyhemoglobin 96.0 % Methemoglobin 0.4 % (0.0-1.9) Carbon Monoxide, Quantitative 1.6 % (0.0-1.9) FiO2 100 Triglycerides Level 108 mg/dL (0-150) Cholesterol Level 136 mg/dL (0-200) LDL Cholesterol, Calculated 72 mg/dL (0-100) VLDL Cholesterol, Calculated 22 mg/dL (0-40) Non-HDL Cholesterol Calculated 94 mg/dL (0-129) HDL Cholesterol 42 mg/dL (40-60) Cholesterol/HDL Ratio 3.2 Test 05/24/20 07:30 05/24/20 09:00 O2 Saturation 99 % (92-99) Arterial Blood pH 7.35 (7.35-7.45) Arterial Blood pCO2 at Patient Temp 42 mmHg (35-46) Arterial Blood pO2 at Patient Temp 186 mmHg (65-108) Arterial Blood HCO3 23 mmol/L (21-28) Arterial Blood Base Excess -3 mmol/L (-3-3) FiO2 70/vent Sodium Level 139 mmol/L (136-145) Potassium Level 4.9 mmol/L (3.5-5.1) Chloride Level 106 mmol/L (98-107) Carbon Dioxide Level 26 mmol/L (21-32) Anion Gap 7 (6-14) Blood Urea Nitrogen 11 mg/dL (8-26) Creatinine 0.9 mg/dL (0.7-1.3) Estimated GFR (Cockcroft-Gault) 84.2 Glucose Level 95 mg/dL (70-99) Lactic Acid Level 1.1 mmol/L (0.4-2.0) Calcium Level 8.0 mg/dL (8.5-10.1) Impression . Full consult dictated Respiratory arrest secondary to adequate hospital cardiopulmonary arrest Status post PCI to the RCA S T-segment elevation GA. MESERET OTOOLE MD May 24, 2020 12:09
[2020-05-24] MEDS ORDERED: FUROSEMIDE 40 MG/4 ML VIAL. IVP ONE (12:15)
--- NOTE | 2020-05-24 12:23 | PDOC ---
KARLIE CADENA SUPERVISOR STAGE CARPENTRY 05/24/20 1223: CARDIO Progress Notes Date and Time Date of Service 05/24/2020 Time of Evaluation 1050 Subjective Subjective: Other (intubated) Vitals Vitals Vital Signs Date Time Temp Pulse Resp B/P (MAP) Pulse Ox O2 Delivery O2 Flow Rate FiO2 05/24/20 11:33 100 Ventilator 05/24/20 10:05 97 20 136/78 (97) 05/24/20 07:26 98.7 98.7 Weight Weight [ ] Input and Output Intake and Output Intake and Output 05/24/20 07:00 Intake Total 1867.6 ml Output Total 850 ml Balance 1017.6 ml Intake Oral 0 ml IV Total 1867.6 ml Output Urine Total 850 ml Laboratory Labs Laboratory Tests Test 05/23/20 21:10 05/23/20 21:30 05/23/20 23:56 05/24/20 03:45 White Blood Count 20.9 x10^3/uL (4.0-11.0) Red Blood Count 5.29 x10^6/uL (4.30-5.70) Hemoglobin 15.7 g/dL (13.0-17.5) Hematocrit 47.8 % (39.0-53.0) Mean Corpuscular Volume 90 fL (79-100) Mean Corpuscular Hemoglobin 30 pg (25-35) Mean Corpuscular Hemoglobin Concent 33 g/dL (31-37) Red Cell Distribution Width 13.3 % (11.5-14.5) Platelet Count 207 x10^3/uL (140-400) Neutrophils (%) (Auto) 86 % (31-73) Lymphocytes (%) (Auto) 8 % (24-48) Monocytes (%) (Auto) 5 % (0-9) Eosinophils (%) (Auto) 0 % (0-3) Basophils (%) (Auto) 1 % (0-3) Neutrophils # (Auto) 17.9 x10^3/uL (1.8-7.7) Lymphocytes # (Auto) 1.7 x10^3/uL (1.0-4.8) Monocytes # (Auto) 1.1 x10^3/uL (0.0-1.1) Eosinophils # (Auto) 0.0 x10^3/uL (0.0-0.7) Basophils # (Auto) 0.1 x10^3/uL (0.0-0.2) Segmented Neutrophils % 85 % (35-66) Band Neutrophils % 1 % (0-9) Lymphocytes % 10 % (24-48) Monocytes % 4 % (0-10) Platelet Estimate Adequate (ADEQUATE) Prothrombin Time 14.7 SEC (11.7-14.0) Prothromb Time International Ratio 1.2 (0.8-1.1) Activated Partial Thromboplast Time 35 SEC (24-38) D-Dimer (Reanna) > 20.00 ug/mlFEU Sodium Level 137 mmol/L (136-145) Potassium Level 4.4 mmol/L (3.5-5.1) Chloride Level 102 mmol/L (98-107) Carbon Dioxide Level 21 mmol/L (21-32) Anion Gap 14 (6-14) Blood Urea Nitrogen 10 mg/dL (8-26) Creatinine 1.2 mg/dL (0.7-1.3) Estimated GFR (Cockcroft-Gault) 60.4 BUN/Creatinine Ratio 8 (6-20) Glucose Level 264 mg/dL (70-99) Lactic Acid Level 8.3 mmol/L (0.4-2.0) Calcium Level 8.9 mg/dL (8.5-10.1) Magnesium Level 1.9 mg/dL (1.8-2.4) 1.9 mg/dL (1.8-2.4) Total Bilirubin 0.4 mg/dL (0.2-1.0) Aspartate Amino Transf (AST/SGOT) 33 U/L (15-37) Alanine Aminotransferase (ALT/SGPT) 35 U/L (16-63) Alkaline Phosphatase 90 U/L (46-116) Troponin I Quantitative 0.066 ng/mL (0.000-0.055) 5.355 ng/mL (0.000-0.055) NN-Gyv-L-Type Natriuretic Peptide 199 pg/mL (0-124) Total Protein 5.9 g/dL (6.4-8.2) Albumin 2.5 g/dL (3.4-5.0) Albumin/Globulin Ratio 0.7 (1.0-1.7) SARS-CoV-2 Antigen (Rapid) Negative (NEGATIVE) O2 Saturation 98 % (92-99) Arterial Blood pH 7.24 (7.35-7.45) Arterial Blood pCO2 at Patient Temp 38 mmHg (35-46) Arterial Blood pO2 at Patient Temp 125 mmHg (65-108) Arterial Blood HCO3 16 mmol/L (21-28) Arterial Blood Base Excess -11 mmol/L (-3-3) Oxyhemoglobin 96.0 % Methemoglobin 0.4 % (0.0-1.9) Carbon Monoxide, Quantitative 1.6 % (0.0-1.9) FiO2 100 Triglycerides Level 108 mg/dL (0-150) Cholesterol Level 136 mg/dL (0-200) LDL Cholesterol, Calculated 72 mg/dL (0-100) VLDL Cholesterol, Calculated 22 mg/dL (0-40) Non-HDL Cholesterol Calculated 94 mg/dL (0-129) HDL Cholesterol 42 mg/dL (40-60) Cholesterol/HDL Ratio 3.2 Test 05/24/20 07:30 05/24/20 09:00 O2 Saturation 99 % (92-99) Arterial Blood pH 7.35 (7.35-7.45) Arterial Blood pCO2 at Patient Temp 42 mmHg (35-46) Arterial Blood pO2 at Patient Temp 186 mmHg (65-108) Arterial Blood HCO3 23 mmol/L (21-28) Arterial Blood Base Excess -3 mmol/L (-3-3) FiO2 70/vent Sodium Level 139 mmol/L (136-145) Potassium Level 4.9 mmol/L (3.5-5.1) Chloride Level 106 mmol/L (98-107) Carbon Dioxide Level 26 mmol/L (21-32) Anion Gap 7 (6-14) Blood Urea Nitrogen 11 mg/dL (8-26) Creatinine 0.9 mg/dL (0.7-1.3) Estimated GFR (Cockcroft-Gault) 84.2 Glucose Level 95 mg/dL (70-99) Lactic Acid Level 1.1 mmol/L (0.4-2.0) Calcium Level 8.0 mg/dL (8.5-10.1) Physical Exam HEENT: Neck Supple W Full Motion Chest: Symmetric LUNGS: Other (intubated, vent) Heart: RRR (SR) Abdomen: Other (soft) Extremities: No Edema Neurology: other (sedated) Assessment Assessment 1. Witnessed Vfib OOH cardiac arrest: due to ischemia 10 min to ROSC via ACLS protocol. Received amiodarone bolus 2. Nontraumatic fall: due to above 3. Acute systolic CHF 4. ACS: urgent PCI/JANESSA to RCA, full report pending 5. Acute respiratory failure: intubated with vent. per pulmonary 6. Encephalopathy 7. Reactive leukocytosis Recommendations 1. Hemodynamically stable No further ventricular arrhythmias nor any reperfusion arrhythymias, Continue Metoprolol 2. ASA, plavix. Good UOP. high dose statin. Lasix 3. Neuro eval when off sedation. 4. TTE today 5. Cardiac rehab Justicifation of Admission Dx: Justifications for Admission: Justification of Admission Dx: Yes FREEMAN RAY MD 05/24/201931: CARDIO Progress Notes Assessment Assessment Patient seen and examined. Agree with MAINTENANCE HELPER's assessment and plan. Acute inferoposterior AR, cardiac arrest/VT/VF s/p PCI JANESSA to RCA, presently off pressors and no further arrhythmias on tele Continue DAPT and vent wean per pulm team KARLIE CADENA APRN May 24, 2020 12:23 FREEMAN RAY MD May 24, 2020 19:32
--- NOTE | 2020-05-24 13:07 | CARD ---
MR#: [id number] Date of Study: 05/23/2020 Ordering Physician: FREEMAN FAJARDO, Referring Physician: FREEMAN FAJARDO, Tech: RT Caity (R) APPROVED REPORT Technologist: RT Caity (R) JUAN Nurse: Natividad Denis R.N. Procedure(s) performed: 1. Left heart catheterization, selective coronary angiography and left ventr iculography 2. Successful PCI/drug-eluting stent placement to the right coronary artery FLUORO TIME: 10.6 MIN DOSE: 84 Gycm2 Contrast: 165ml No Sedation INDICATION The indication(s) include : 69-year-old male apparently had an episode of syncope at home. EMS found him in ventricular fibrillation and patient was successfully resuscitated and defibrillated to sinus rhythm. Initial EKG in ED showed sinus rhythm with right bundle branch block and plans were being mad e to rule out acute PE. Patient however had another episode of cardiac arrest/ventricular fibrillatio n and underwent defibrillation followed by intubation for acute respiratory failure and initiation of pressors for hypotension. Subsequent EKG showed sinus rhythm with ST elevations in inferior leads co nsistent with acute inferior wall STEMI. Code STEMI was activated and patient was taken emergently fo r cardiac catheterization. Door to balloon time might have been delayed due to resuscitation and hill sportation of ventilated patient.. HA Clinical Frailty Scale [facility] Clinical Frailty Scale: Mildly Frail Heart Failure Heart Failure: No CASE TECHNIQUE During this case, Fluoroscopy and low osmolar contrast were used for imaging. Specimen(s) Removed: No Estimated Blood loss: 15 cc's. PROCEDURE NARRATIVE After explaining the risk, benefits and alternative options, informed consent was obtained for patien t. Patient was brought to the cardiac [employer] [facility] and his left groin was prepped and draped in the usua l fashion. 20 cc of 2% lidocaine was infiltrated into the skin and subcutaneous tissues for local an esthesia. Arterial access was obtained in the left common femoral artery and a 6 [place] sheath was i nserted. 6 [place] JL4 6 [place] JR4 catheters were used to perform selective angiography of the left and right coronary arteries. 6 [place] pigtail catheter was used to perform left ventriculography. T he following findings were noted: FINDINGS 1. Hemodynamics: Elevated left ventricular end-diastolic pressure of 31 mmHg consistent with acute d iastolic heart failure. No pullback gradient across the aortic valve. 2. Left ventriculography: Normal left ventricular systolic function with ejection fraction estimated at 55%. No significant mitral regurgitation seen. 3. Coronary angiography: a. The left main coronary artery arose from the left sinus of Valsalva, gave rise to the left anteri or descending left circumflex artery and showed 20-30% ostial segment stenosis. b. The left anterior descending artery did not show any significant stenosis. c. The left circumflex artery did not show any significant stenosis. d. The right coronary artery was a large and dominant vessel arising from the right sinus of Valsalv a that showed 95 to 99% stenosis with TRINIDAD I distal flow. INTERVENTION The right coronary artery was engaged with a 6 [place] JR4 guide catheter and the stenosis in the dist al segment was crossed with a 0.014 inch WazeTrip guidewire. This was predilated with a 3.0 x 15 mm Euphora balloon following which this was successfully treated with a 3.0 x 22 mm resolute Boyce drug-eluting stent. Follow-up angiography showed resolution of the stenosis to 0% with TRINIDAD-3 distal flow. Patient tolerated the procedure well. Hemostasis was achieved using Angio-Seal. There were no immediate complications. TRINIDAD Flow TRINIDAD Flow (Pre-Intervention): TRINIDAD-1 TRINIDAD Flow (Post-Intervention): TRINIDAD-3 Conclusion 1. Severe single-vessel coronary disease involving the right coronary artery 2. Successful PCI/drug-eluting stent placement to RCA 3. Normal left ventricle systolic function with ejection fraction estimated at 55% Recommendations 1. Aspirin 325 mg daily 2. Plavix 75 mg daily 3. Admit to intensive care unit and wean off pressors and ventilator 4. Cardiovascular risk factor modification including smoking cessation 5. Cardiac rehabilitation referral upon discharge Signed by : Freeman Fajardo, Electronically Approved : 05/24/2020 13:07:22
[2020-05-24] MEDS ORDERED: THIAMINE INJ 100 MG, FOLIC ACID INJ 1 MG in IV NORMAL SALINE 1000ML BAG 1,000 ML IV ONE (14:00)
--- NOTE | 2020-05-24 16:04 | NUR ---
SS following for discharge planning. SS reviewed pt chart and discussed with pt RN. Pt is from home and is currently on the vent at 40%. COVID19 negative. Pt had CPAP trial today. SS will continue to follow for discharge planning.
--- NOTE | 2020-05-24 17:37 | HP ---
ADMIT DATE: 05/23/2020 CHIEF COMPLAINT: Cardiac arrest. HISTORY OF PRESENT ILLNESS: This 69-year-old male apparently [place] local [place] with his and began to feel nauseated and diaphoretic. They left the casino for home. He had a drink of soda to relieve his nausea, continued to feel short of breath. Per family, his found him after she heard a loud thud and he had passed out. EMS was summoned and the patient was found to be in V-fib on arrival. They did defibrillating on and he was coded for 10 minutes prior to arrival here. EKG showed right bundle branch block. Therefore, the plan was to rule out PE with CTA of the chest. He was intubated for respiratory failure. Another episode of V-tach fibrillation but successfully defibrillated here. Code STEMI was activated. He was taken emergently to the cardiac catheterization lab, at which time he was found to have critical right coronary artery stenosis, stent was placed. Chest x-ray shows diffuse interstitial opacities in both lungs. Denies depression or anxiety. He is a smoker less than pack a day. PAST MEDICAL HISTORY: Hyperlipidemia, hypertension. SOCIAL HISTORY: Smokes less than 1 pack per day. No alcohol or tobacco use per family. REVIEW OF SYSTEMS: Unable to provide due to the patient being intubated and sedated. PHYSICAL EXAMINATION: GENERAL: On exam today denies similar events. ABDOMEN: Soft. LUNGS: Clear. NECK: Without adenopathy. No bruit. LABORATORY DATA: Troponin is elevated at 5.34. ASSESSMENT: 1. Cardiac arrest. 2. Severe single vessel coronary artery disease involving the right coronary artery and post-PCI with drug-eluting stent placement to the right coronary artery by Dr. Fajardo today. 3. Normal ____ 55%. 4. ST-elevation myocardial infarction. 5. Tobacco abuse disorder. 6. Ischemic ventricular tachycardia. PLAN: ICU bed. Aspirin 325 mg daily, Plavix 75 mg daily. Wean off pressors and vent. Cardiology consult and Pulmonary consult. GI prophylaxis. CTA of the chest. Urine drug screen, CBC in a.m. ____ 60 minutes of critical care time spent. This is a supplement to the ____ for admission. Estimated length of stay greater than 3 days due to cardiac arrest and acute STEMI. PROGNOSIS: Guarded given ____. FRIEDA TEAGUE MD DR: UMESH/moi JOB#: [id number] / [id number]
[2020-05-24] MEDS: ATORVASTATIN CALCIUM 20 MG TABLET PO SCH (20:40)
--- NOTE | 2020-05-24 22:40 | CONS ---
DATE OF CONSULTATION: 05/24/2020 ATTENDING PHYSICIAN: Dr. Zapata. REASON FOR CONSULTATION: The patient is seen in pulmonary consultation at the request of Dr. Zapata for [id number] cardiopulmonary arrest, management of mechanical ventilation. HISTORY OF PRESENT ILLNESS: The patient is a 69-year-old male who presented to the Emergency Room after suffering a cardiac arrest at home. Apparently, the patient's reported that the patient was not feeling well all day long. He complained of some nausea. He then collapsed. CPR was initiated. He was given some epinephrine and defibrillated, coded for approximately 10 minutes prior to arrival to the Emergency Department. He was taken emergently to the cardiac catheterization suite. He underwent PCI to the RCA. His x-ray initially revealed some increased interstitial lung markings compatible with vascular congestion. The patient is currently mechanically ventilated. He is on assist control ventilation. His latest arterial blood gas revealed a pH of 7.35, PaCO2 of 42, pO2 186. White count was 20,000. Serology for COVID-19 was negative rapid test. Electrolytes were noted. PAST MEDICAL HISTORY: There is a history of psychiatric disorder, depression, anxiety, alcohol abuse. SOCIAL HISTORY: Unknown if he smokes on a daily basis. REVIEW OF SYSTEMS: Unobtainable secondary to the patient's condition. PHYSICAL EXAMINATION: VITAL SIGNS: Stable. O2 saturation was greater than 92%, currently on assist control ventilation. HEENT: Eyes: The sclerae were nonicteric. NECK: Jugular venous distention was not elevated. LUNGS: Anteriorly were clear. CARDIOVASCULAR: Regular rate and rhythm with S1, S2, no S3. ABDOMEN: Soft, nontender. EXTREMITIES: No clubbing or cyanosis. No pitting edema. NEUROLOGICAL: The patient was sedated. LABORATORY DATA: Reviewed as indicated above. Chest x-ray once again revealing bilateral pulmonary infiltrates compatible with pulmonary edema. IMPRESSION: 1. [id number] cardiopulmonary arrest secondary to inferior wall PR. 2. Status post emergent cardiac catheterization with PCI to the RCA. 3. ST segment elevation myocardial infarction. 4. History of alcoholism. 5. Leukocytosis, suspect reactive. 6. Lactic acidosis related to [id number] cardiopulmonary arrest. PLAN: 1. The patient is currently sedated, when I stimulated him, he moves upper extremities. We will proceed with discontinuing sedation and possibly trial for extubation. 2. Continue current support. 3. Anticoagulation per Cardiology. 4. Once the patient is extubated, we will obtain additional history regarding tobacco use and alcoholism. 5. Alcohol withdrawal protocol. I do appreciate the privilege in sharing in the patient's care. Total cumulative critical care time from 11:10 to 12:08. MESERET OTOOLE MD DR: FOSTER/moi JOB#: [id number] / [id number]
[2020-05-24 23:55] LABS: BILIRUBIN,URINE NEGATIVE (NEG); CLARITY,URINE CLEAR; COLOR,URINE YELLOW; NITRITE,URINE NEGATIVE (NEG); PH,URINE 5.5 (<5.0-8.0); PROTEIN,URINE NEGATIVE (NEG-TRACE)
[2020-05-25] VITALS (23 sets, daily range): BP systolic 70–131; BP diastolic 42–78
[2020-05-25 00:02] LABS: BARBITURATES NEG (NEG); BENZODIAZEPINES POS (NEG); CANNABINOIDS POS (NEG); COCAINE NEG (NEG); METHADONE NEG (NEG); OPIATES NEG (NEG); PHENCYCLIDINE NEG (NEG)
[2020-05-25 00:04] LABS: AMPHETAMINE/METHAMPHETAMINE POS (NEG)
[2020-05-25 00:07] LABS: BACTERIA,URINE 0 /HPF (0-FEW)
[2020-05-25 00:08] LABS: HYALINE CASTS, URINE FEW /HPF
[2020-05-25 00:08] LABS: HEMOGLOBIN A1C 5.8 % (4.8-5.6)
[2020-05-25] MEDS: IV 1/2 NORMAL SALINE 1,000 ML IV SCH ×3 (00:27→19:58)
[2020-05-25] MEDS: PROPOFOL 100 ML IV PRN ×2 (01:43→08:13)
[2020-05-25 05:18] LABS: BASO # 0.1 x10^3/uL (0.0-0.2); BASO % 0 % (0-3); EOS # 0.1 x10^3/uL (0.0-0.7); EOS % 0 % (0-3); HEMATOCRIT 39.1 % (39.0-53.0); HEMOGLOBIN 13.2 g/dL (13.0-17.5); LYMPH # 1.8 x10^3/uL (1.0-4.8); LYMPH % 9 % (24-48); MEAN CORPUSCULAR HEMOGLOBIN 30 pg (25-35); MEAN CORPUSCULAR HGB CONC 34 g/dL (31-37); MEAN CORPUSCULAR VOLUME 88 fL (79-100); MONO # 1.7 x10^3/uL (0.0-1.1); MONO % 9 % (0-9); NEUT # 16.1 x10^3/uL (1.8-7.7); NEUT % 82 % (31-73); PLATELET COUNT 158 x10^3/uL (140-400); RED BLOOD COUNT 4.46 x10^6/uL (4.30-5.70); RED CELL DISTRIBUTION WIDTH 13.6 % (11.5-14.5); WHITE BLOOD COUNT 19.8 x10^3/uL (4.0-11.0)
--- NOTE | 2020-05-25 05:23 | RAD ---
Study: XR CHEST 1V Indication: Respiratory failure. Comparison: 05/24/2020 Findings: Endotracheal tube tip 3 cm above the lian. Enteric tube tip is below the inferior field of view. Unchanged extent of diffuse reticulonodular densities throughout both lungs. No pneumothorax or incre asing effusion. Impression: Unchanged support device positioning and diffuse reticulonodular densities throughout both lungs. Electronically signed by: LORRAINE DALEY MD (05/25/2020 5:21 AM) [facility] [place]
[2020-05-25 05:58] LABS: ALBUMIN 1.9 g/dL (3.4-5.0); ALBUMIN/GLOBULIN RATIO 0.6 (1.0-1.7); CALCIUM 7.5 mg/dL (8.5-10.1); CREATININE 0.8 mg/dL (0.7-1.3); GFR 96.4; POTASSIUM 3.8 mmol/L (3.5-5.1); TOTAL BILIRUBIN 0.8 mg/dL (0.2-1.0); TOTAL PROTEIN 5.2 g/dL (6.4-8.2)
[2020-05-25] MEDS ORDERED: DEXMEDETOMIDINE 400 MCG in IV NORMAL SALINE 100ML 96 ML IV PRN (07:45)
[2020-05-25] MEDS: ASPIRIN ENTERIC COATED 325 MG TABLET.DR. PO SCH (07:55)
[2020-05-25] MEDS: CLOPIDOGREL BISULFATE 75 MG TABLET PO SCH (07:55)
[2020-05-25 08:04] LABS: BASE EXCESS ABG -1 mmol/L (-3-3); HCO3 ABG 23 mmol/L (21-28); PCO2 ABG 34 mmHg (35-46); PO2 ABG 70 mmHg (65-108); SAT O2 ABG 95 % (92-99)
--- NOTE | 2020-05-25 08:42 | PDOC ---
PROGRESS NOTES Date of Service: DATE: 05/25/20 TIME: 08:41 Chief Complaint Chief Complaint ASSESSMENT: 1. Cardiac arrest. 2. Severe single vessel coronary artery disease involving the right coronary artery and post-PCI with drug-eluting stent placement to the right coronary artery by Dr. Fajardo today. 3. Normal ef 55%. 4. ST-elevation myocardial infarction. 5. Tobacco abuse disorder. 6. Ischemic ventricular tachycardia. 7. LEUKOCYTOSIS without fever PLAN: ICU bed. Aspirin 325 mg daily, Plavix 75 mg daily. off pressors and vent. Cardiology consult and Pulmonary consult. GI prophylaxis. ID CONSULT, PROCALCITONIN 05-25 OFF VENT, AWAKE , ID CONSULT 34 minutes of critical care time spent. This is a supplement to the DATA for admission. Estimated length of stay greater than 3 days due to cardiac arrest and acute STEMI. PROGNOSIS: Guarded given OUT OF HOSPITAL ARREST . History of Present Illness History of Present Illness CHIEF COMPLAINT: Cardiac arrest. HISTORY OF PRESENT ILLNESS: This 69-year-old male apparently was at the local [employer] with his and began to feel nauseated and diaphoretic. They left the [employer] for home. He had a drink of soda to relieve his nausea, he continued to feel short of breath. Per family, his found him after she heard a loud thud and he had passed out. EMS was summoned and the patient was found to be in V-fib on their arrival. required defibrillation and he was coded for 10 minutes prior to arrival here. EKG showed right bundle branch block. Therefore, the plan was to rule out PE with CTA of the chest. He was intubated for respiratory failure. Another episode of V-tach fibrillation but successfully defibrillated here. Code STEMI was activated. He was taken emergently to the cardiac catheterization lab, at which time he was found to have critical right coronary artery stenosis, stent was placed. Chest x-ray shows diffuse interstitial opacities in both lungs. Denies depression or anxiety. He is a smoker less than pack a day. PAST MEDICAL HISTORY: Hyperlipidemia, hypertension. SOCIAL HISTORY: Smokes less than 1 pack per day. No alcohol or tobacco use per family. REVIEW OF SYSTEMS: Unable to provide due to the patient being intubated and sedated. Vitals Vitals Vital Signs Date Time Temp Pulse Resp B/P (MAP) Pulse Ox O2 Delivery O2 Flow Rate FiO2 05/25/20 08:22 Mechanical Ventilator 05/25/20 08:13 83 16 91/56 (68) 94 05/25/20 06:57 97.5 97.5 Physical Exam General: Alert, Oriented X3, Cooperative, No acute distress Heart: Regular rate Abdomen: Normal bowel sounds, Soft Extremities: No cyanosis, No edema Labs LABS Study: XR CHEST 1V Indication: Respiratory failure. Comparison: 05/24/2020 Findings: Endotracheal tube tip 3 cm above the lian. Enteric tube tip is below the inferior field of view. Unchanged extent of diffuse reticulonodular densities throughout both lungs. No pneumothorax or increasing effusion. Impression: Unchanged support device positioning and diffuse reticulonodular densities throughout both lungs. Electronically signed by: LORRAINE DALEY MD (05/25/2020 5:21 AM) [facility] DICTATED and SIGNED BY: LORRAINE DALEY MD DATE: 05/25/20 [id number] Laboratory Tests Test 05/24/20 09:00 05/24/20 23:45 05/25/20 05:10 Sodium Level 139 mmol/L (136-145) 136 mmol/L (136-145) Potassium Level 4.9 mmol/L (3.5-5.1) 3.8 mmol/L (3.5-5.1) Chloride Level 106 mmol/L (98-107) 102 mmol/L (98-107) Carbon Dioxide Level 26 mmol/L (21-32) 27 mmol/L (21-32) Anion Gap 7 (6-14) 7 (6-14) Blood Urea Nitrogen 11 mg/dL (8-26) 11 mg/dL (8-26) Creatinine 0.9 mg/dL (0.7-1.3) 0.8 mg/dL (0.7-1.3) Estimated GFR (Cockcroft-Gault) 84.2 96.4 Glucose Level 95 mg/dL (70-99) 104 mg/dL (70-99) Hemoglobin A1c 5.8 % (4.8-5.6) Lactic Acid Level 1.1 mmol/L (0.4-2.0) Calcium Level 8.0 mg/dL (8.5-10.1) 7.5 mg/dL (8.5-10.1) Procalcitonin 2.35 ng/mL (0.00-0.10) Urine Collection Type U cath Urine Color Yellow Urine Clarity Clear Urine pH 5.5 (<5.0-8.0) Urine Specific [place] 1.020 (1.000-1.030) Urine Protein Negative mg/dL (NEG-TRACE) Urine Glucose (UA) Negative mg/dL (NEG) Urine Ketones (Stick) Negative mg/dL (NEG) Urine Blood Negative (NEG) Urine Nitrite Negative (NEG) Urine Bilirubin Negative (NEG) Urine Urobilinogen Dipstick 1.0 mg/dL (0.2 mg/dL) Urine Leukocyte Esterase Trace (NEG) Urine RBC 1-2 /HPF (0-2) Urine WBC 1-4 /HPF (0-4) Urine Squamous Epithelial Cells Occ /LPF Urine Bacteria 0 /HPF (0-FEW) Urine Hyaline Casts Few /HPF Urine Mucus Mod /LPF Urine Opiates Screen Neg (NEG) Urine Methadone Screen Neg (NEG) Urine Barbiturates Neg (NEG) Urine Phencyclidine Screen Neg (NEG) Urine Amphetamine/Methamphetamine Pos (NEG) Urine Benzodiazepines Screen Pos (NEG) Urine Cocaine Screen Neg (NEG) Urine Cannabinoids Screen Pos (NEG) Urine Ethyl Alcohol Neg (NEG) White Blood Count 19.8 x10^3/uL (4.0-11.0) Red Blood Count 4.46 x10^6/uL (4.30-5.70) Hemoglobin 13.2 g/dL (13.0-17.5) Hematocrit 39.1 % (39.0-53.0) Mean Corpuscular Volume 88 fL (79-100) Mean Corpuscular Hemoglobin 30 pg (25-35) Mean Corpuscular Hemoglobin Concent 34 g/dL (31-37) Red Cell Distribution Width 13.6 % (11.5-14.5) Platelet Count 158 x10^3/uL (140-400) Neutrophils (%) (Auto) 82 % (31-73) Lymphocytes (%) (Auto) 9 % (24-48) Monocytes (%) (Auto) 9 % (0-9) Eosinophils (%) (Auto) 0 % (0-3) Basophils (%) (Auto) 0 % (0-3) Neutrophils # (Auto) 16.1 x10^3/uL (1.8-7.7) Lymphocytes # (Auto) 1.8 x10^3/uL (1.0-4.8) Monocytes # (Auto) 1.7 x10^3/uL (0.0-1.1) Eosinophils # (Auto) 0.1 x10^3/uL (0.0-0.7) Basophils # (Auto) 0.1 x10^3/uL (0.0-0.2) BUN/Creatinine Ratio 14 (6-20) Total Bilirubin 0.8 mg/dL (0.2-1.0) Aspartate Amino Transf (AST/SGOT) 32 U/L (15-37) Alanine Aminotransferase (ALT/SGPT) 27 U/L (16-63) Alkaline Phosphatase 63 U/L (46-116) Total Protein 5.2 g/dL (6.4-8.2) Albumin 1.9 g/dL (3.4-5.0) Albumin/Globulin Ratio 0.6 (1.0-1.7) Assessment and Plan Assessmemt and Plan Problems Medical Problems: (1) Cardiac arrest Status: Acute Comment Review of Relevant I have reviewed the following items gill (where applicable) has been applied. Labs Laboratory Tests Test 05/23/20 21:10 05/23/20 21:30 05/23/20 21:35 05/23/20 23:56 White Blood Count 20.9 x10^3/uL (4.0-11.0) Red Blood Count 5.29 x10^6/uL (4.30-5.70) Hemoglobin 15.7 g/dL (13.0-17.5) Hematocrit 47.8 % (39.0-53.0) Mean Corpuscular Volume 90 fL (79-100) Mean Corpuscular Hemoglobin 30 pg (25-35) Mean Corpuscular Hemoglobin Concent 33 g/dL (31-37) Red Cell Distribution Width 13.3 % (11.5-14.5) Platelet Count 207 x10^3/uL (140-400) Neutrophils (%) (Auto) 86 % (31-73) Lymphocytes (%) (Auto) 8 % (24-48) Monocytes (%) (Auto) 5 % (0-9) Eosinophils (%) (Auto) 0 % (0-3) Basophils (%) (Auto) 1 % (0-3) Neutrophils # (Auto) 17.9 x10^3/uL (1.8-7.7) Lymphocytes # (Auto) 1.7 x10^3/uL (1.0-4.8) Monocytes # (Auto) 1.1 x10^3/uL (0.0-1.1) Eosinophils # (Auto) 0.0 x10^3/uL (0.0-0.7) Basophils # (Auto) 0.1 x10^3/uL (0.0-0.2) Segmented Neutrophils % 85 % (35-66) Band Neutrophils % 1 % (0-9) Lymphocytes % 10 % (24-48) Monocytes % 4 % (0-10) Platelet Estimate Adequate (ADEQUATE) Prothrombin Time 14.7 SEC (11.7-14.0) Prothromb Time International Ratio 1.2 (0.8-1.1) Activated Partial Thromboplast Time 35 SEC (24-38) D-Dimer (Reanna) > 20.00 ug/mlFEU Sodium Level 137 mmol/L (136-145) Potassium Level 4.4 mmol/L (3.5-5.1) Chloride Level 102 mmol/L (98-107) Carbon Dioxide Level 21 mmol/L (21-32) Anion Gap 14 (6-14) Blood Urea Nitrogen 10 mg/dL (8-26) Creatinine 1.2 mg/dL (0.7-1.3) Estimated GFR (Cockcroft-Gault) 60.4 BUN/Creatinine Ratio 8 (6-20) Glucose Level 264 mg/dL (70-99) Lactic Acid Level 8.3 mmol/L (0.4-2.0) Calcium Level 8.9 mg/dL (8.5-10.1) Magnesium Level 1.9 mg/dL (1.8-2.4) Total Bilirubin 0.4 mg/dL (0.2-1.0) Aspartate Amino Transf (AST/SGOT) 33 U/L (15-37) Alanine Aminotransferase (ALT/SGPT) 35 U/L (16-63) Alkaline Phosphatase 90 U/L (46-116) Troponin I Quantitative 0.066 ng/mL (0.000-0.055) AD-Lwd-R-Type Natriuretic Peptide 199 pg/mL (0-124) Total Protein 5.9 g/dL (6.4-8.2) Albumin 2.5 g/dL (3.4-5.0) Albumin/Globulin Ratio 0.7 (1.0-1.7) SARS-CoV-2 Antigen (Rapid) Negative (NEGATIVE) Coronavirus (PCR) Not detected (Not Detected) O2 Saturation 98 % (92-99) Arterial Blood pH 7.24 (7.35-7.45) Arterial Blood pCO2 at Patient Temp 38 mmHg (35-46) Arterial Blood pO2 at Patient Temp 125 mmHg (65-108) Arterial Blood HCO3 16 mmol/L (21-28) Arterial Blood Base Excess -11 mmol/L (-3-3) Oxyhemoglobin 96.0 % Methemoglobin 0.4 % (0.0-1.9) Carbon Monoxide, Quantitative 1.6 % (0.0-1.9) FiO2 100 Test 05/24/20 03:45 05/24/20 07:30 05/24/20 09:00 05/24/20 23:45 Magnesium Level 1.9 mg/dL (1.8-2.4) Troponin I Quantitative 5.355 ng/mL (0.000-0.055) Triglycerides Level 108 mg/dL (0-150) Cholesterol Level 136 mg/dL (0-200) LDL Cholesterol, Calculated 72 mg/dL (0-100) VLDL Cholesterol, Calculated 22 mg/dL (0-40) Non-HDL Cholesterol Calculated 94 mg/dL (0-129) HDL Cholesterol 42 mg/dL (40-60) Cholesterol/HDL Ratio 3.2 O2 Saturation 99 % (92-99) Arterial Blood pH 7.35 (7.35-7.45) Arterial Blood pCO2 at Patient Temp 42 mmHg (35-46) Arterial Blood pO2 at Patient Temp 186 mmHg (65-108) Arterial Blood HCO3 23 mmol/L (21-28) Arterial Blood Base Excess -3 mmol/L (-3-3) FiO2 70/vent Sodium Level 139 mmol/L (136-145) Potassium Level 4.9 mmol/L (3.5-5.1) Chloride Level 106 mmol/L (98-107) Carbon Dioxide Level 26 mmol/L (21-32) Anion Gap 7 (6-14) Blood Urea Nitrogen 11 mg/dL (8-26) Creatinine 0.9 mg/dL (0.7-1.3) Estimated GFR (Cockcroft-Gault) 84.2 Glucose Level 95 mg/dL (70-99) Hemoglobin A1c 5.8 % (4.8-5.6) Lactic Acid Level 1.1 mmol/L (0.4-2.0) Calcium Level 8.0 mg/dL (8.5-10.1) Procalcitonin 2.35 ng/mL (0.00-0.10) Urine Collection Type U cath Urine Color Yellow Urine Clarity Clear Urine pH 5.5 (<5.0-8.0) Urine Specific [place] 1.020 (1.000-1.030) Urine Protein Negative mg/dL (NEG-TRACE) Urine Glucose (UA) Negative mg/dL (NEG) Urine Ketones (Stick) Negative mg/dL (NEG) Urine Blood Negative (NEG) Urine Nitrite Negative (NEG) Urine Bilirubin Negative (NEG) Urine Urobilinogen Dipstick 1.0 mg/dL (0.2 mg/dL) Urine Leukocyte Esterase Trace (NEG) Urine RBC 1-2 /HPF (0-2) Urine WBC 1-4 /HPF (0-4) Urine Squamous Epithelial Cells Occ /LPF Urine Bacteria 0 /HPF (0-FEW) Urine Hyaline Casts Few /HPF Urine Mucus Mod /LPF Urine Opiates Screen Neg (NEG) Urine Methadone Screen Neg (NEG) Urine Barbiturates Neg (NEG) Urine Phencyclidine Screen Neg (NEG) Urine Amphetamine/Methamphetamine Pos (NEG) Urine Benzodiazepines Screen Pos (NEG) Urine Cocaine Screen Neg (NEG) Urine Cannabinoids Screen Pos (NEG) Urine Ethyl Alcohol Neg (NEG) Test 05/25/20 05:10 White Blood Count 19.8 x10^3/uL (4.0-11.0) Red Blood Count 4.46 x10^6/uL (4.30-5.70) Hemoglobin 13.2 g/dL (13.0-17.5) Hematocrit 39.1 % (39.0-53.0) Mean Corpuscular Volume 88 fL (79-100) Mean Corpuscular Hemoglobin 30 pg (25-35) Mean Corpuscular Hemoglobin Concent 34 g/dL (31-37) Red Cell Distribution Width 13.6 % (11.5-14.5) Platelet Count 158 x10^3/uL (140-400) Neutrophils (%) (Auto) 82 % (31-73) Lymphocytes (%) (Auto) 9 % (24-48) Monocytes (%) (Auto) 9 % (0-9) Eosinophils (%) (Auto) 0 % (0-3) Basophils (%) (Auto) 0 % (0-3) Neutrophils # (Auto) 16.1 x10^3/uL (1.8-7.7) Lymphocytes # (Auto) 1.8 x10^3/uL (1.0-4.8) Monocytes # (Auto) 1.7 x10^3/uL (0.0-1.1) Eosinophils # (Auto) 0.1 x10^3/uL (0.0-0.7) Basophils # (Auto) 0.1 x10^3/uL (0.0-0.2) Sodium Level 136 mmol/L (136-145) Potassium Level 3.8 mmol/L (3.5-5.1) Chloride Level 102 mmol/L (98-107) Carbon Dioxide Level 27 mmol/L (21-32) Anion Gap 7 (6-14) Blood Urea Nitrogen 11 mg/dL (8-26) Creatinine 0.8 mg/dL (0.7-1.3) Estimated GFR (Cockcroft-Gault) 96.4 BUN/Creatinine Ratio 14 (6-20) Glucose Level 104 mg/dL (70-99) Calcium Level 7.5 mg/dL (8.5-10.1) Total Bilirubin 0.8 mg/dL (0.2-1.0) Aspartate Amino Transf (AST/SGOT) 32 U/L (15-37) Alanine Aminotransferase (ALT/SGPT) 27 U/L (16-63) Alkaline Phosphatase 63 U/L (46-116) Total Protein 5.2 g/dL (6.4-8.2) Albumin 1.9 g/dL (3.4-5.0) Albumin/Globulin Ratio 0.6 (1.0-1.7) Laboratory Tests Test 05/24/20 09:00 05/24/20 23:45 05/25/20 05:10 Sodium Level 139 mmol/L (136-145) 136 mmol/L (136-145) Potassium Level 4.9 mmol/L (3.5-5.1) 3.8 mmol/L (3.5-5.1) Chloride Level 106 mmol/L (98-107) 102 mmol/L (98-107) Carbon Dioxide Level 26 mmol/L (21-32) 27 mmol/L (21-32) Anion Gap 7 (6-14) 7 (6-14) Blood Urea Nitrogen 11 mg/dL (8-26) 11 mg/dL (8-26) Creatinine 0.9 mg/dL (0.7-1.3) 0.8 mg/dL (0.7-1.3) Estimated GFR (Cockcroft-Gault) 84.2 96.4 Glucose Level 95 mg/dL (70-99) 104 mg/dL (70-99) Hemoglobin A1c 5.8 % (4.8-5.6) Lactic Acid Level 1.1 mmol/L (0.4-2.0) Calcium Level 8.0 mg/dL (8.5-10.1) 7.5 mg/dL (8.5-10.1) Procalcitonin 2.35 ng/mL (0.00-0.10) Urine Collection Type U cath Urine Color Yellow Urine Clarity Clear Urine pH 5.5 (<5.0-8.0) Urine Specific [place] 1.020 (1.000-1.030) Urine Protein Negative mg/dL (NEG-TRACE) Urine Glucose (UA) Negative mg/dL (NEG) Urine Ketones (Stick) Negative mg/dL (NEG) Urine Blood Negative (NEG) Urine Nitrite Negative (NEG) Urine Bilirubin Negative (NEG) Urine Urobilinogen Dipstick 1.0 mg/dL (0.2 mg/dL) Urine Leukocyte Esterase Trace (NEG) Urine RBC 1-2 /HPF (0-2) Urine WBC 1-4 /HPF (0-4) Urine Squamous Epithelial Cells Occ /LPF Urine Bacteria 0 /HPF (0-FEW) Urine Hyaline Casts Few /HPF Urine Mucus Mod /LPF Urine Opiates Screen Neg (NEG) Urine Methadone Screen Neg (NEG) Urine Barbiturates Neg (NEG) Urine Phencyclidine Screen Neg (NEG) Urine Amphetamine/Methamphetamine Pos (NEG) Urine Benzodiazepines Screen Pos (NEG) Urine Cocaine Screen Neg (NEG) Urine Cannabinoids Screen Pos (NEG) Urine Ethyl Alcohol Neg (NEG) White Blood Count 19.8 x10^3/uL (4.0-11.0) Red Blood Count 4.46 x10^6/uL (4.30-5.70) Hemoglobin 13.2 g/dL (13.0-17.5) Hematocrit 39.1 % (39.0-53.0) Mean Corpuscular Volume 88 fL (79-100) Mean Corpuscular Hemoglobin 30 pg (25-35) Mean Corpuscular Hemoglobin Concent 34 g/dL (31-37) Red Cell Distribution Width 13.6 % (11.5-14.5) Platelet Count 158 x10^3/uL (140-400) Neutrophils (%) (Auto) 82 % (31-73) Lymphocytes (%) (Auto) 9 % (24-48) Monocytes (%) (Auto) 9 % (0-9) Eosinophils (%) (Auto) 0 % (0-3) Basophils (%) (Auto) 0 % (0-3) Neutrophils # (Auto) 16.1 x10^3/uL (1.8-7.7) Lymphocytes # (Auto) 1.8 x10^3/uL (1.0-4.8) Monocytes # (Auto) 1.7 x10^3/uL (0.0-1.1) Eosinophils # (Auto) 0.1 x10^3/uL (0.0-0.7) Basophils # (Auto) 0.1 x10^3/uL (0.0-0.2) BUN/Creatinine Ratio 14 (6-20) Total Bilirubin 0.8 mg/dL (0.2-1.0) Aspartate Amino Transf (AST/SGOT) 32 U/L (15-37) Alanine Aminotransferase (ALT/SGPT) 27 U/L (16-63) Alkaline Phosphatase 63 U/L (46-116) Total Protein 5.2 g/dL (6.4-8.2) Albumin 1.9 g/dL (3.4-5.0) Albumin/Globulin Ratio 0.6 (1.0-1.7) Medications Current Medications Sodium Chloride 1,000 ml @ 1,000 mls/hr 1X ONCE IV Last administered on 05/23/20at 20:50; Start 05/23/20 at 21:00; Stop 05/23/20 at 21:59; Status DC Propofol 100 ml @ As Directed STK-MED ONCE IV ; Start 05/23/20 at 20:57; Stop 05/23/20 at 20:57; Status DC Norepinephrine Bitartrate 8 mg/ Dextrose 258 ml @ 11.61 mls/ hr 1X ONCE IV ; Start 05/23/20 at 21:15; Stop 05/24/20 at 19:28; Status DC Magnesium Sulfate 0 ml @ As Directed STK-MED ONCE IV ; Start 05/23/20 at 21:16; Stop 05/23/20 at 21:16; Status DC Epinephrine HCl 5 mg/Sodium Chloride 255 ml @ 0.306 mls/ hr 1X ONCE IV Last administered on 05/23/20at 21:33; Start 05/23/20 at 22:00; Stop 06/27/20 at 15:19 Heparin Sodium (Porcine) (Heparin Sodium) 10,000 unit STK-MED ONCE .ROUTE ; Start 05/23/20 at 21:36; Stop 05/23/20 at 21:37; Status DC Aspirin (Aspirin Rectal Supp) 300 mg 1X ONCE AK Last administered on 05/23/20at 21:45; Start 05/23/20 at 22:30; Stop 05/23/20 at 22:31; Status DC Heparin Sodium (Porcine) (Heparin Sodium) 4,000 unit 1X ONCE IV Last administered on 05/23/20at 21:54; Start 05/23/20 at 22:00; Stop 05/23/20 at 22:01; Status DC Lidocaine HCl (Lidocaine 1% 20ml Vial) 20 ml STK-MED ONCE .ROUTE ; Start 05/23/20 at 21:55; Stop 05/23/20 at 21:56; Status DC Heparin Sodium/ Sodium Chloride 1,000 ml @ As Directed STK-MED ONCE .ROUTE ; Start 05/23/20 at 21:56; Stop 05/23/20 at 21:56; Status DC Iodixanol (Visipaque 320) 100 ml STK-MED ONCE .ROUTE ; Start 05/23/20 at 21:56; Stop 05/23/20 at 21:56; Status DC Bivalirudin (Angiomax) 250 mg STK-MED ONCE IV ; Start 05/23/20 at 21:58; Stop 05/23/20 at 21:58; Status DC Etomidate (Amidate) 20 mg STK-MED ONCE IV ; Start 05/23/20 at 22:01; Stop 05/23/20 at 22:02; Status DC Midazolam HCl (Versed) 5 mg STK-MED ONCE .ROUTE ; Start 05/23/20 at 22:01; Stop 05/23/20 at 22:02; Status DC Succinylcholine Chloride (Anectine) 200 mg STK-MED ONCE .ROUTE ; Start 05/23/20 at 22:02; Stop 05/23/20 at 22:02; Status DC Iohexol (Omnipaque 350 Mg/ml) 100 ml 1X ONCE IV ; Start 05/23/20 at 23:00; Stop 05/23/20 at 23:01; Status DC Info (CONTRAST GIVEN -- Rx MONITORING) 1 each PRN DAILY PRN MC SEE COMMENTS; Start 05/23/20 at 22:15; Stop 05/25/20 at 22:14 Piperacillin Sod/ Tazobactam Sod 4.5 gm/Sodium Chloride 100 ml @ 200 mls/hr 1X ONCE IV Last administered on 05/24/20at 00:49; Start 05/23/20 at 23:00; Stop 05/23/20 at 23:29; Status DC Heparin Sodium/ Sodium Chloride (HEPARIN for ARTERIAL LINE FLUSH) 1,000 unit 1X ONCE IART Last administered on 05/23/20at 23:19; Start 05/23/20 at 23:00; Stop 05/23/20 at 23:01; Status DC Iodixanol (Visipaque 320) 100 ml 1X ONCE IART Last administered on 05/23/20at 23:19; Start 05/23/20 at 23:00; Stop 05/23/20 at 23:01; Status DC Bivalirudin (Angiomax) 250 mg 1X ONCE IV Last administered on 05/23/20at 23:23; Start 05/23/20 at 23:00; Stop 05/23/20 at 23:01; Status DC Lidocaine HCl (Lidocaine 1% 20ml Vial) 20 ml 1X ONCE INJ Last administered on 05/23/20at 23:22; Start 05/23/20 at 23:00; Stop 05/23/20 at 23:01; Status DC Clopidogrel Bisulfate (Plavix) 600 mg 1X ONCE PO Last administered on 05/23/20at 23:23; Start 05/23/20 at 23:00; Stop 05/23/20 at 23:01; Status DC Clopidogrel Bisulfate (Plavix) 75 mg STK-MED ONCE .ROUTE ; Start 05/23/20 at 22:45; Stop 05/23/20 at 22:45; Status DC Sodium Chloride 1,000 ml @ 75 mls/hr [id number] IV Last administered on 05/25/20at 08:25; Start 05/23/20 at 23:00 Aspirin (Ecotrin) 325 mg DAILYWBKFT PO Last administered on 05/25/20at 07:55; Start 05/24/20 at 08:00 Clopidogrel Bisulfate (Plavix) 75 mg DAILYWBKFT PO Last administered on 05/25/20at 07:55; Start 05/24/20 at 08:00 Metoprolol Tartrate (Lopressor) 12.5 mg BID PO Last administered on 05/24/20at 20:41; Start 05/24/20 at 09:00 Atorvastatin Calcium (Lipitor) 40 mg QHS PO Last administered on 05/24/20at 20:40; Start 05/24/20 at 21:00 Nitroglycerin (Nitrostat) 0.4 mg PRN Q5MIN PRN SL CHEST PAIN; Start 05/23/20 at 23:00 Fentanyl Citrate 30 ml @ 0 mls/hr CONT PRN IV SEE PROTOCOL Last administered on 05/25/20at 05:22; Start 05/23/20 at 23:15 Propofol 100 ml @ 0 mls/hr CONT PRN IV PER PROTOCOL Last administered on 05/25/20at 08:13; Start 05/23/20 at 23:15 Amiodarone HCl (Cordarone) 300 mg 1X ONCE IVP Last administered on 05/23/20at 21:23; Start 05/23/20 at 23:45; Stop 05/23/20 at 23:46; Status DC Etomidate (Amidate) 20 mg 1X ONCE IV Last administered on 05/23/20at 20:43; Start 05/24/20 at 00:00; Stop 05/24/20 at 00:03; Status DC Succinylcholine Chloride (Anectine) 100 mg 1X ONCE IV Last administered on 05/23/20at 20:43; Start 05/24/20 at 00:00; Stop 05/24/20 at 00:03; Status DC Midazolam HCl (Versed) 10 mg 1X ONCE IV Last administered on 05/23/20at 20:56; Start 05/24/20 at 00:00; Stop 05/24/20 at 00:03; Status DC Magnesium Sulfate 50 ml @ 25 mls/hr 1X ONCE IV Last administered on 05/24/20at 04:40; Start 05/24/20 at 00:30; Stop 05/24/20 at 02:29; Status DC Sodium Chloride 1,000 ml @ 1,000 mls/hr 1X ONCE IV Last administered on 05/23/20at 21:00; Start 05/24/20 at 00:00; Stop 05/24/20 at 00:59; Status DC Sodium Chloride 1,000 ml @ 1,000 mls/hr 1X ONCE IV Last administered on 05/24/20at 00:53; Start 05/24/20 at 00:00; Stop 05/24/20 at 00:59; Status DC Magnesium Sulfate/ Dextrose 100 ml @ 100 mls/hr 1X ONCE IV Last administered on 05/23/20 21:20; Start 05/24/20 at 00:15; Stop 05/24/20 at 01:14; Status DC Epinephrine HCl (EPINEPHrine SYRINGE) 1 mg 1X ONCE IV Last administered on 05/23/20 21:16; Start 05/24/20 at 00:15; Stop 05/24/20 at 00:20; Status DC Epinephrine HCl (EPINEPHrine SYRINGE) 1 mg 1X ONCE IV Last administered on 05/23/20 21:29; Start 05/24/20 at 00:15; Stop 05/24/20 at 00:20; Status DC Thiamine HCl 100 mg/Folic Acid 1 mg/Sodium Chloride 1,001.2 ml @ 99.012 mls/hr 1X ONCE IV Last administered on 05/24/20at 14:31; Start 05/24/20 at 14:00; Stop 05/25/20 at 00:06; Status DC Furosemide (Lasix) 40 mg 1X ONCE IVP Last administered on 05/24/20at 14:31; Start 05/24/20 at 12:15; Stop 05/24/20 at 12:16; Status DC Furosemide (Lasix) 40 mg DAILY IVP ; Start 05/25/20 at 09:00 Dexmedetomidine HCl 400 mcg/ Sodium Chloride 100 ml @ 3.255 mls/ hr CONT PRN IV PER PROTOCOL Last administered on 05/25/20at 08:11; Start 05/25/20 at 07:45 Vitals/I & O Vital Sign - Last 24 Hours 05/24/20 05/24/20 05/24/20 05/24/20 09:20 09:23 09:50 10:05 Pulse 93 97 Resp 20 20 20 B/P (MAP) 128/77 (94) 136/78 (97) Pulse Ox 99 99 97 99 O2 Delivery Ventilator Ventilator Ventilator Ventilator 05/24/20 05/24/20 05/24/20 05/24/20 11:00 11:33 12:00 12:00 Temp 98.3 98.3 Pulse 96 96 Resp 20 20 B/P (MAP) 132/76 (94) 134/77 (96) Pulse Ox 98 100 98 O2 Delivery Ventilator Ventilator Mechanical Ventilator Ventilator 05/24/20 05/24/20 05/24/20 05/24/20 13:00 14:00 14:35 15:00 Pulse 94 92 88 Resp 20 20 20 B/P (MAP) 109/67 (81) 118/72 (87) 117/68 (84) Pulse Ox 98 98 100 96 O2 Delivery Ventilator Ventilator Ventilator 05/24/20 05/24/20 05/24/20 05/24/20 15:30 16:37 16:38 17:46 Temp 98.9 98.9 Pulse 95 89 Resp 20 20 B/P (MAP) 93/64 (74) 92/62 (72) Pulse Ox 100 97 95 O2 Delivery Ventilator Mechanical Ventilator Ventilator Ventilator 05/24/20 05/24/20 05/24/20 05/24/20 18:07 19:00 19:35 20:00 Temp 98.6 98.6 Pulse 93 95 99 Resp 20 20 20 B/P (MAP) 113/60 (77) 116/71 (86) 126/68 (87) Pulse Ox 95 95 94 O2 Delivery Ventilator Ventilator Mechanical Ventilator Ventilator 05/24/20 05/24/20 05/24/20 05/24/20 20:25 20:41 20:41 21:00 Pulse 102 104 Resp 20 B/P (MAP) 129/70 99/63 (75) Pulse Ox 100 100 94 O2 Delivery Ventilator Ventilator 05/24/20 05/24/20 05/24/20 05/25/20 21:11 22:00 23:00 00:00 Temp 100.2 100.2 Pulse 98 98 Resp 20 20 B/P (MAP) 100/66 (77) 86/57 (67) Pulse Ox 100 96 96 O2 Delivery Ventilator Ventilator Mechanical Ventilator 05/25/20 05/25/20 05/25/20 05/25/20 00:00 00:24 01:00 02:00 Pulse 96 83 86 Resp 20 20 20 B/P (MAP) 70/42 (51) 85/58 (67) 90/57 (68) Pulse Ox 96 99 96 95 O2 Delivery Ventilator Ventilator Ventilator Ventilator 05/25/20 05/25/20 05/25/20 05/25/20 03:00 03:45 04:00 04:03 Temp 99.6 99.6 Pulse 88 86 Resp 20 20 B/P (MAP) 91/65 (74) 94/65 (75) Pulse Ox 96 95 95 O2 Delivery Ventilator Mechanical Ventilator Ventilator Ventilator 05/25/20 05/25/20 05/25/20 05/25/20 05:00 05:22 05:52 06:00 Pulse 90 82 Resp 20 20 B/P (MAP) 83/59 (67) 89/60 (70) Pulse Ox 96 95 95 96 O2 Delivery Ventilator Ventilator 05/25/20 05/25/20 05/25/20 05/25/20 06:57 07:42 08:13 08:22 Temp 97.5 97.5 Pulse 83 83 Resp 25 16 B/P (MAP) 81/60 (67) 91/56 (68) Pulse Ox 99 95 94 O2 Delivery Ventilator Ventilator Ventilator Mechanical Ventilator Intake and Output 0 05/24/20 05/24/20 05/25/20 15:00 23:00 07:00 Intake Total 0 ml 1394 ml 1365.7 ml Output Total 875 ml 1675 ml 595 ml Balance -875 ml -281 ml 770.7 ml Justicifation of Admission Dx: Justifications for Admission: Justification of Admission Dx: Yes FRIEDA TEAGUE MD May 25, 2020 08:42
[2020-05-25] MEDS: METOPROLOL TART IMMED RELEASE 25 MG TABLET. PO SCH ×2 (09:00→18:53)
[2020-05-25] MEDS: FUROSEMIDE 40 MG/4 ML VIAL. IVP SCH (09:00)
--- NOTE | 2020-05-25 09:03 | PDOC ---
PULMONARY PROGRESS NOTE Diagnosis PROBLEM LIST Problems Medical Problems: (1) Cardiac arrest Status: Acute Objective Vital Signs Date Time Temp Pulse Resp B/P (MAP) Pulse Ox O2 Delivery O2 Flow Rate FiO2 05/25/20 08:22 Mechanical Ventilator 05/25/20 08:13 83 16 91/56 (68) 94 05/25/20 06:57 97.5 97.5 Intake and Output 05/25/20 06:59 Intake Total 2759.7 ml Output Total 3145 ml Balance -385.3 ml Intake Oral 0 ml IV Total 2759.7 ml Output Urine Total 3145 ml VITALS/I&O Vital Sign - Last 24 Hours 05/24/20 05/24/20 05/24/20 05/24/20 09:20 09:23 09:50 10:05 Pulse 93 97 Resp 20 20 20 B/P (MAP) 128/77 (94) 136/78 (97) Pulse Ox 99 99 97 99 O2 Delivery Ventilator Ventilator Ventilator Ventilator 05/24/20 05/24/20 05/24/20 05/24/20 11:00 11:33 12:00 12:00 Temp 98.3 98.3 Pulse 96 96 Resp 20 20 B/P (MAP) 132/76 (94) 134/77 (96) Pulse Ox 98 100 98 O2 Delivery Ventilator Ventilator Mechanical Ventilator Ventilator 05/24/20 05/24/20 05/24/20 05/24/20 13:00 14:00 14:35 15:00 Pulse 94 92 88 Resp 20 20 20 B/P (MAP) 109/67 (81) 118/72 (87) 117/68 (84) Pulse Ox 98 98 100 96 O2 Delivery Ventilator Ventilator Ventilator 05/24/20 05/24/20 05/24/20 05/24/20 15:30 16:37 16:38 17:46 Temp 98.9 98.9 Pulse 95 89 Resp 20 20 B/P (MAP) 93/64 (74) 92/62 (72) Pulse Ox 100 97 95 O2 Delivery Ventilator Mechanical Ventilator Ventilator Ventilator 05/24/20 05/24/20 05/24/20 05/24/20 18:07 19:00 19:35 20:00 Temp 98.6 98.6 Pulse 93 95 99 Resp 20 20 20 B/P (MAP) 113/60 (77) 116/71 (86) 126/68 (87) Pulse Ox 95 95 94 O2 Delivery Ventilator Ventilator Mechanical Ventilator Ventilator 05/24/20 05/24/20 05/24/20 05/24/20 20:25 20:41 20:41 21:00 Pulse 102 104 Resp 20 B/P (MAP) 129/70 99/63 (75) Pulse Ox 100 100 94 O2 Delivery Ventilator Ventilator 05/24/20 05/24/20 05/24/20 05/25/20 21:11 22:00 23:00 00:00 Temp 100.2 100.2 Pulse 98 98 Resp 20 20 B/P (MAP) 100/66 (77) 86/57 (67) Pulse Ox 100 96 96 O2 Delivery Ventilator Ventilator Mechanical Ventilator 05/25/20 05/25/20 05/25/20 05/25/20 00:00 00:24 01:00 02:00 Pulse 96 83 86 Resp 20 20 20 B/P (MAP) 70/42 (51) 85/58 (67) 90/57 (68) Pulse Ox 96 99 96 95 O2 Delivery Ventilator Ventilator Ventilator Ventilator 05/25/20 05/25/20 05/25/20 05/25/20 03:00 03:45 04:00 04:03 Temp 99.6 99.6 Pulse 88 86 Resp 20 20 B/P (MAP) 91/65 (74) 94/65 (75) Pulse Ox 96 95 95 O2 Delivery Ventilator Mechanical Ventilator Ventilator Ventilator 05/25/20 05/25/20 05/25/20 05/25/20 05:00 05:22 05:52 06:00 Pulse 90 82 Resp 20 20 B/P (MAP) 83/59 (67) 89/60 (70) Pulse Ox 96 95 95 96 O2 Delivery Ventilator Ventilator 05/25/20 05/25/20 05/25/20 05/25/20 06:57 07:42 08:13 08:22 Temp 97.5 97.5 Pulse 83 83 Resp 25 16 B/P (MAP) 81/60 (67) 91/56 (68) Pulse Ox 99 95 94 O2 Delivery Ventilator Ventilator Ventilator Mechanical Ventilator Intake and Output 05/24/20 05/24/20 05/25/20 14:59 22:59 06:59 Intake Total 0 ml 1394 ml 1365.7 ml Output Total 755 ml 1795 ml 595 ml Balance -755 ml -401 ml 770.7 ml Review of Relevant I have reviewed the following items gill (where applicable) has been applied. Labs Laboratory Tests Test 05/23/20 21:10 05/23/20 21:30 05/23/20 21:35 05/23/20 23:56 White Blood Count 20.9 x10^3/uL (4.0-11.0) Red Blood Count 5.29 x10^6/uL (4.30-5.70) Hemoglobin 15.7 g/dL (13.0-17.5) Hematocrit 47.8 % (39.0-53.0) Mean Corpuscular Volume 90 fL (79-100) Mean Corpuscular Hemoglobin 30 pg (25-35) Mean Corpuscular Hemoglobin Concent 33 g/dL (31-37) Red Cell Distribution Width 13.3 % (11.5-14.5) Platelet Count 207 x10^3/uL (140-400) Neutrophils (%) (Auto) 86 % (31-73) Lymphocytes (%) (Auto) 8 % (24-48) Monocytes (%) (Auto) 5 % (0-9) Eosinophils (%) (Auto) 0 % (0-3) Basophils (%) (Auto) 1 % (0-3) Neutrophils # (Auto) 17.9 x10^3/uL (1.8-7.7) Lymphocytes # (Auto) 1.7 x10^3/uL (1.0-4.8) Monocytes # (Auto) 1.1 x10^3/uL (0.0-1.1) Eosinophils # (Auto) 0.0 x10^3/uL (0.0-0.7) Basophils # (Auto) 0.1 x10^3/uL (0.0-0.2) Segmented Neutrophils % 85 % (35-66) Band Neutrophils % 1 % (0-9) Lymphocytes % 10 % (24-48) Monocytes % 4 % (0-10) Platelet Estimate Adequate (ADEQUATE) Prothrombin Time 14.7 SEC (11.7-14.0) Prothromb Time International Ratio 1.2 (0.8-1.1) Activated Partial Thromboplast Time 35 SEC (24-38) D-Dimer (Reanna) > 20.00 ug/mlFEU Sodium Level 137 mmol/L (136-145) Potassium Level 4.4 mmol/L (3.5-5.1) Chloride Level 102 mmol/L (98-107) Carbon Dioxide Level 21 mmol/L (21-32) Anion Gap 14 (6-14) Blood Urea Nitrogen 10 mg/dL (8-26) Creatinine 1.2 mg/dL (0.7-1.3) Estimated GFR (Cockcroft-Gault) 60.4 BUN/Creatinine Ratio 8 (6-20) Glucose Level 264 mg/dL (70-99) Lactic Acid Level 8.3 mmol/L (0.4-2.0) Calcium Level 8.9 mg/dL (8.5-10.1) Magnesium Level 1.9 mg/dL (1.8-2.4) Total Bilirubin 0.4 mg/dL (0.2-1.0) Aspartate Amino Transf (AST/SGOT) 33 U/L (15-37) Alanine Aminotransferase (ALT/SGPT) 35 U/L (16-63) Alkaline Phosphatase 90 U/L (46-116) Troponin I Quantitative 0.066 ng/mL (0.000-0.055) SE-Gbs-Q-Type Natriuretic Peptide 199 pg/mL (0-124) Total Protein 5.9 g/dL (6.4-8.2) Albumin 2.5 g/dL (3.4-5.0) Albumin/Globulin Ratio 0.7 (1.0-1.7) SARS-CoV-2 Antigen (Rapid) Negative (NEGATIVE) Coronavirus (PCR) Not detected (Not Detected) O2 Saturation 98 % (92-99) Arterial Blood pH 7.24 (7.35-7.45) Arterial Blood pCO2 at Patient Temp 38 mmHg (35-46) Arterial Blood pO2 at Patient Temp 125 mmHg (65-108) Arterial Blood HCO3 16 mmol/L (21-28) Arterial Blood Base Excess -11 mmol/L (-3-3) Oxyhemoglobin 96.0 % Methemoglobin 0.4 % (0.0-1.9) Carbon Monoxide, Quantitative 1.6 % (0.0-1.9) FiO2 100 Test 05/24/20 03:45 05/24/20 07:30 05/24/20 09:00 05/24/20 23:45 Magnesium Level 1.9 mg/dL (1.8-2.4) Troponin I Quantitative 5.355 ng/mL (0.000-0.055) Triglycerides Level 108 mg/dL (0-150) Cholesterol Level 136 mg/dL (0-200) LDL Cholesterol, Calculated 72 mg/dL (0-100) VLDL Cholesterol, Calculated 22 mg/dL (0-40) Non-HDL Cholesterol Calculated 94 mg/dL (0-129) HDL Cholesterol 42 mg/dL (40-60) Cholesterol/HDL Ratio 3.2 O2 Saturation 99 % (92-99) Arterial Blood pH 7.35 (7.35-7.45) Arterial Blood pCO2 at Patient Temp 42 mmHg (35-46) Arterial Blood pO2 at Patient Temp 186 mmHg (65-108) Arterial Blood HCO3 23 mmol/L (21-28) Arterial Blood Base Excess -3 mmol/L (-3-3) FiO2 70/vent Sodium Level 139 mmol/L (136-145) Potassium Level 4.9 mmol/L (3.5-5.1) Chloride Level 106 mmol/L (98-107) Carbon Dioxide Level 26 mmol/L (21-32) Anion Gap 7 (6-14) Blood Urea Nitrogen 11 mg/dL (8-26) Creatinine 0.9 mg/dL (0.7-1.3) Estimated GFR (Cockcroft-Gault) 84.2 Glucose Level 95 mg/dL (70-99) Hemoglobin A1c 5.8 % (4.8-5.6) Lactic Acid Level 1.1 mmol/L (0.4-2.0) Calcium Level 8.0 mg/dL (8.5-10.1) Procalcitonin 2.35 ng/mL (0.00-0.10) Urine Collection Type U cath Urine Color Yellow Urine Clarity Clear Urine pH 5.5 (<5.0-8.0) Urine Specific Robert Lee 1.020 (1.000-1.030) Urine Protein Negative mg/dL (NEG-TRACE) Urine Glucose (UA) Negative mg/dL (NEG) Urine Ketones (Stick) Negative mg/dL (NEG) Urine Blood Negative (NEG) Urine Nitrite Negative (NEG) Urine Bilirubin Negative (NEG) Urine Urobilinogen Dipstick 1.0 mg/dL (0.2 mg/dL) Urine Leukocyte Esterase Trace (NEG) Urine RBC 1-2 /HPF (0-2) Urine WBC 1-4 /HPF (0-4) Urine Squamous Epithelial Cells Occ /LPF Urine Bacteria 0 /HPF (0-FEW) Urine Hyaline Casts Few /HPF Urine Mucus Mod /LPF Urine Opiates Screen Neg (NEG) Urine Methadone Screen Neg (NEG) Urine Barbiturates Neg (NEG) Urine Phencyclidine Screen Neg (NEG) Urine Amphetamine/Methamphetamine Pos (NEG) Urine Benzodiazepines Screen Pos (NEG) Urine Cocaine Screen Neg (NEG) Urine Cannabinoids Screen Pos (NEG) Urine Ethyl Alcohol Neg (NEG) Test 05/25/20 05:10 White Blood Count 19.8 x10^3/uL (4.0-11.0) Red Blood Count 4.46 x10^6/uL (4.30-5.70) Hemoglobin 13.2 g/dL (13.0-17.5) Hematocrit 39.1 % (39.0-53.0) Mean Corpuscular Volume 88 fL (79-100) Mean Corpuscular Hemoglobin 30 pg (25-35) Mean Corpuscular Hemoglobin Concent 34 g/dL (31-37) Red Cell Distribution Width 13.6 % (11.5-14.5) Platelet Count 158 x10^3/uL (140-400) Neutrophils (%) (Auto) 82 % (31-73) Lymphocytes (%) (Auto) 9 % (24-48) Monocytes (%) (Auto) 9 % (0-9) Eosinophils (%) (Auto) 0 % (0-3) Basophils (%) (Auto) 0 % (0-3) Neutrophils # (Auto) 16.1 x10^3/uL (1.8-7.7) Lymphocytes # (Auto) 1.8 x10^3/uL (1.0-4.8) Monocytes # (Auto) 1.7 x10^3/uL (0.0-1.1) Eosinophils # (Auto) 0.1 x10^3/uL (0.0-0.7) Basophils # (Auto) 0.1 x10^3/uL (0.0-0.2) Sodium Level 136 mmol/L (136-145) Potassium Level 3.8 mmol/L (3.5-5.1) Chloride Level 102 mmol/L (98-107) Carbon Dioxide Level 27 mmol/L (21-32) Anion Gap 7 (6-14) Blood Urea Nitrogen 11 mg/dL (8-26) Creatinine 0.8 mg/dL (0.7-1.3) Estimated GFR (Cockcroft-Gault) 96.4 BUN/Creatinine Ratio 14 (6-20) Glucose Level 104 mg/dL (70-99) Calcium Level 7.5 mg/dL (8.5-10.1) Total Bilirubin 0.8 mg/dL (0.2-1.0) Aspartate Amino Transf (AST/SGOT) 32 U/L (15-37) Alanine Aminotransferase (ALT/SGPT) 27 U/L (16-63) Alkaline Phosphatase 63 U/L (46-116) Total Protein 5.2 g/dL (6.4-8.2) Albumin 1.9 g/dL (3.4-5.0) Albumin/Globulin Ratio 0.6 (1.0-1.7) Laboratory Tests Test 05/24/20 23:45 05/25/20 05:10 Urine Collection Type U cath Urine Color Yellow Urine Clarity Clear Urine pH 5.5 (<5.0-8.0) Urine Specific Robert Lee 1.020 (1.000-1.030) Urine Protein Negative mg/dL (NEG-TRACE) Urine Glucose (UA) Negative mg/dL (NEG) Urine Ketones (Stick) Negative mg/dL (NEG) Urine Blood Negative (NEG) Urine Nitrite Negative (NEG) Urine Bilirubin Negative (NEG) Urine Urobilinogen Dipstick 1.0 mg/dL (0.2 mg/dL) Urine Leukocyte Esterase Trace (NEG) Urine RBC 1-2 /HPF (0-2) Urine WBC 1-4 /HPF (0-4) Urine Squamous Epithelial Cells Occ /LPF Urine Bacteria 0 /HPF (0-FEW) Urine Hyaline Casts Few /HPF Urine Mucus Mod /LPF Urine Opiates Screen Neg (NEG) Urine Methadone Screen Neg (NEG) Urine Barbiturates Neg (NEG) Urine Phencyclidine Screen Neg (NEG) Urine Amphetamine/Methamphetamine Pos (NEG) Urine Benzodiazepines Screen Pos (NEG) Urine Cocaine Screen Neg (NEG) Urine Cannabinoids Screen Pos (NEG) Urine Ethyl Alcohol Neg (NEG) White Blood Count 19.8 x10^3/uL (4.0-11.0) Red Blood Count 4.46 x10^6/uL (4.30-5.70) Hemoglobin 13.2 g/dL (13.0-17.5) Hematocrit 39.1 % (39.0-53.0) Mean Corpuscular Volume 88 fL (79-100) Mean Corpuscular Hemoglobin 30 pg (25-35) Mean Corpuscular Hemoglobin Concent 34 g/dL (31-37) Red Cell Distribution Width 13.6 % (11.5-14.5) Platelet Count 158 x10^3/uL (140-400) Neutrophils (%) (Auto) 82 % (31-73) Lymphocytes (%) (Auto) 9 % (24-48) Monocytes (%) (Auto) 9 % (0-9) Eosinophils (%) (Auto) 0 % (0-3) Basophils (%) (Auto) 0 % (0-3) Neutrophils # (Auto) 16.1 x10^3/uL (1.8-7.7) Lymphocytes # (Auto) 1.8 x10^3/uL (1.0-4.8) Monocytes # (Auto) 1.7 x10^3/uL (0.0-1.1) Eosinophils # (Auto) 0.1 x10^3/uL (0.0-0.7) Basophils # (Auto) 0.1 x10^3/uL (0.0-0.2) Sodium Level 136 mmol/L (136-145) Potassium Level 3.8 mmol/L (3.5-5.1) Chloride Level 102 mmol/L (98-107) Carbon Dioxide Level 27 mmol/L (21-32) Anion Gap 7 (6-14) Blood Urea Nitrogen 11 mg/dL (8-26) Creatinine 0.8 mg/dL (0.7-1.3) Estimated GFR (Cockcroft-Gault) 96.4 BUN/Creatinine Ratio 14 (6-20) Glucose Level 104 mg/dL (70-99) Calcium Level 7.5 mg/dL (8.5-10.1) Total Bilirubin 0.8 mg/dL (0.2-1.0) Aspartate Amino Transf (AST/SGOT) 32 U/L (15-37) Alanine Aminotransferase (ALT/SGPT) 27 U/L (16-63) Alkaline Phosphatase 63 U/L (46-116) Total Protein 5.2 g/dL (6.4-8.2) Albumin 1.9 g/dL (3.4-5.0) Albumin/Globulin Ratio 0.6 (1.0-1.7) Medications Current Medications Sodium Chloride 1,000 ml @ 1,000 mls/hr 1X ONCE IV Last administered on 05/23/20at 20:50; Start 05/23/20 at 21:00; Stop 05/23/20 at 21:59; Status DC Propofol 100 ml @ As Directed STK-MED ONCE IV ; Start 05/23/20 at 20:57; Stop 05/23/20 at 20:57; Status DC Norepinephrine Bitartrate 8 mg/ Dextrose 258 ml @ 11.61 mls/ hr 1X ONCE IV ; Start 05/23/20 at 21:15; Stop 05/24/20 at 19:28; Status DC Magnesium Sulfate 0 ml @ As Directed STK-MED ONCE IV ; Start 05/23/20 at 21:16; Stop 05/23/20 at 21:16; Status DC Epinephrine HCl 5 mg/Sodium Chloride 255 ml @ 0.306 mls/ hr 1X ONCE IV Last administered on 05/23/20at 21:33; Start 05/23/20 at 22:00; Stop 06/27/20 at 15:19 Heparin Sodium (Porcine) (Heparin Sodium) 10,000 unit STK-MED ONCE .ROUTE ; Start 05/23/20 at 21:36; Stop 05/23/20 at 21:37; Status DC Aspirin (Aspirin Rectal Supp) 300 mg 1X ONCE NC Last administered on 05/23/20at 21:45; Start 05/23/20 at 22:30; Stop 05/23/20 at 22:31; Status DC Heparin Sodium (Porcine) (Heparin Sodium) 4,000 unit 1X ONCE IV Last administered on 05/23/20at 21:54; Start 05/23/20 at 22:00; Stop 05/23/20 at 22:01; Status DC Lidocaine HCl (Lidocaine 1% 20ml Vial) 20 ml STK-MED ONCE .ROUTE ; Start 05/23/20 at 21:55; Stop 05/23/20 at 21:56; Status DC Heparin Sodium/ Sodium Chloride 1,000 ml @ As Directed STK-MED ONCE .ROUTE ; Start 05/23/20 at 21:56; Stop 05/23/20 at 21:56; Status DC Iodixanol (Visipaque 320) 100 ml STK-MED ONCE .ROUTE ; Start 05/23/20 at 21:56; Stop 05/23/20 at 21:56; Status DC Bivalirudin (Angiomax) 250 mg STK-MED ONCE IV ; Start 05/23/20 at 21:58; Stop 05/23/20 at 21:58; Status DC Etomidate (Amidate) 20 mg STK-MED ONCE IV ; Start 05/23/20 at 22:01; Stop at 22:02; Status DC Midazolam HCl (Versed) 5 mg STK-MED ONCE .ROUTE ; Start 05/23/20 at 22:01; Stop 05/23/20 at 22:02; Status DC Succinylcholine Chloride (Anectine) 200 mg STK-MED ONCE .ROUTE ; Start 05/23/20 at 22:02; Stop 05/23/20 at 22:02; Status DC Iohexol (Omnipaque 350 Mg/ml) 100 ml 1X ONCE IV ; Start 05/23/20 at 23:00; Stop 05/23/20 at 23:01; Status DC Info (CONTRAST GIVEN -- Rx MONITORING) 1 each PRN DAILY PRN MC SEE COMMENTS; Start 05/23/20 at 22:15; Stop 05/25/20 at 22:14 Piperacillin Sod/ Tazobactam Sod 4.5 gm/Sodium Chloride 100 ml @ 200 mls/hr 1X ONCE IV Last administered on 05/24/20at 00:49; Start 05/23/20 at 23:00; Stop 05/23/20 at 23:29; Status DC Heparin Sodium/ Sodium Chloride (HEPARIN for ARTERIAL LINE FLUSH) 1,000 unit 1X ONCE IART Last administered on 05/23/20at 23:19; Start 05/23/20 at 23:00; Stop 05/23/20 at 23:01; Status DC Iodixanol (Visipaque 320) 100 ml 1X ONCE IART Last administered on 05/23/20at 23:19; Start 05/23/20 at 23:00; Stop 05/23/20 at 23:01; Status DC Bivalirudin (Angiomax) 250 mg 1X ONCE IV Last administered on 05/23/20at 23:23; Start 05/23/20 at 23:00; Stop 05/23/20 at 23:01; Status DC Lidocaine HCl (Lidocaine 1% 20ml Vial) 20 ml 1X ONCE INJ Last administered on 05/23/20at 23:22; Start 05/23/20 at 23:00; Stop 05/23/20 at 23:01; Status DC Clopidogrel Bisulfate (Plavix) 600 mg 1X ONCE PO Last administered on 05/23/20at 23:23; Start 05/23/20 at 23:00; Stop 05/23/20 at 23:01; Status DC Clopidogrel Bisulfate (Plavix) 75 mg STK-MED ONCE .ROUTE ; Start 05/23/20 at 22:45; Stop 05/23/20 at 22:45; Status DC Sodium Chloride 1,000 ml @ 75 mls/hr [id number] IV Last administered on 05/25/20at 08:25; Start 05/23/20 at 23:00 Aspirin (Ecotrin) 325 mg [id number] PO Last administered on 05/25/20at 07:55; Start 05/24/20 at 08:00 Clopidogrel Bisulfate (Plavix) 75 mg DAILYWBKFT PO Last administered on 05/25/20at 07:55; Start 05/24/20 at 08:00 Metoprolol Tartrate (Lopressor) 12.5 mg BID PO Last administered on 05/24/20at 20:41; Start 05/24/20 at 09:00 Atorvastatin Calcium (Lipitor) 40 mg QHS PO Last administered on 05/24/20at 20:40; Start 05/24/20 at 21:00 Nitroglycerin (Nitrostat) 0.4 mg PRN Q5MIN PRN SL CHEST PAIN; Start 05/23/20 at 23:00 Fentanyl Citrate 30 ml @ 0 mls/hr CONT PRN IV SEE PROTOCOL Last administered on 05/25/20at 05:22; Start 05/23/20 at 23:15 Propofol 100 ml @ 0 mls/hr CONT PRN IV PER PROTOCOL Last administered on 05/25/20at 08:13; Start 05/23/20 at 23:15 Amiodarone HCl (Cordarone) 300 mg 1X ONCE IVP Last administered on 05/23/20 21:23; Start 05/23/20 at 23:45; Stop 05/23/20 at 23:46; Status DC Etomidate (Amidate) 20 mg 1X ONCE IV Last administered on 05/23/20 20:43; Start 05/24/20 at 00:00; Stop 05/24/20 at 00:03; Status DC Succinylcholine Chloride (Anectine) 100 mg 1X ONCE IV Last administered on 05/23/20 20:43; Start 05/24/20 at 00:00; Stop 05/24/20 at 00:03; Status DC Midazolam HCl (Versed) 10 mg 1X ONCE IV Last administered on 05/23/20 20:56; Start 05/24/20 at 00:00; Stop 05/24/20 at 00:03; Status DC Magnesium Sulfate 50 ml @ 25 mls/hr 1X ONCE IV Last administered on 05/24/20at 04:40; Start 05/24/20 at 00:30; Stop 05/24/20 at 02:29; Status DC Sodium Chloride 1,000 ml @ 1,000 mls/hr 1X ONCE IV Last administered on 05/23/20at 21:00; Start 05/24/20 at 00:00; Stop 05/24/20 at 00:59; Status DC Sodium Chloride 1,000 ml @ 1,000 mls/hr 1X ONCE IV Last administered on 05/24/20at 00:53; Start 05/24/20 at 00:00; Stop 05/24/20 at 00:59; Status DC Magnesium Sulfate/ Dextrose 100 ml @ 100 mls/hr 1X ONCE IV Last administered on 05/23/20at 21:20; Start 05/24/20 at 00:15; Stop 05/24/20 at 01:14; Status DC Epinephrine HCl (EPINEPHrine SYRINGE) 1 mg 1X ONCE IV Last administered on 05/23/20at 21:16; Start 05/24/20 at 00:15; Stop 05/24/20 at 00:20; Status DC Epinephrine HCl (EPINEPHrine SYRINGE) 1 mg 1X ONCE IV Last administered on 05/23/20 21:29; Start 05/24/20 at 00:15; Stop 05/24/20 at 00:20; Status DC Thiamine HCl 100 mg/Folic Acid 1 mg/Sodium Chloride 1,001.2 ml @ 99.012 mls/hr 1X ONCE IV Last administered on 05/24/20at 14:31; Start 05/24/20 at 14:00; Stop 05/25/20 at 00:06; Status DC Furosemide (Lasix) 40 mg 1X ONCE IVP Last administered on 05/24/20at 14:31; Start 05/24/20 at 12:15; Stop 05/24/20 at 12:16; Status DC Furosemide (Lasix) 40 mg DAILY IVP ; Start 05/25/20 at 09:00 Dexmedetomidine HCl 400 mcg/ Sodium Chloride 100 ml @ 3.255 mls/ hr CONT PRN IV PER PROTOCOL Last administered on 05/25/20at 08:11; Start 05/25/20 at 07:45 Justicifation of Admission Dx: Justifications for Admission: Justification of Admission Dx: Yes MESERET OTOOLE MD May 25, 2020 09:03
[2020-05-25] MEDS ORDERED: MIDAZOLAM HCL/PF 2 MG/2 ML VIAL. ONE (09:22)
[2020-05-25] MEDS ORDERED: MIDAZOLAM HCL/PF 2 MG/2 ML VIAL. IV ONE ×2 (09:30)
[2020-05-25] MEDS ORDERED: FUROSEMIDE 40 MG/4 ML VIAL. IVP ONE (11:00)
[2020-05-25 12:26] LABS: FIO2 ABG 40/VENT
[2020-05-25 12:27] LABS: BASE EXCESS ABG -2 mmol/L (-3-3); HCO3 ABG 22 mmol/L (21-28); PCO2 ABG 35 mmHg (35-46); PO2 ABG 99 mmHg (65-108); SAT O2 ABG 97 % (92-99)
[2020-05-25 12:32] LABS: FIO2 ABG 40/CPAP 5-5
[2020-05-25] MEDS ORDERED: ONDANSETRON PF 4 MG/2 ML VIAL. IVP PRN (13:00)
[2020-05-25] MEDS: MULTIVITAMIN with MINERAL TABLET. PO SCH (14:00)
[2020-05-25] MEDS ORDERED: THIAMINE INJ 100 MG in IV DEXTROSE 5% 50 ML IV ONE (15:00)
[2020-05-25] MEDS ORDERED: fentaNYL PF VIAL 100 MCG/2 ML VIAL IVP PRN (15:30)
--- NOTE | 2020-05-25 15:51 | NUR ---
SS following up with discharge planning. SS reviewed pt chart and discussed with pt RN. Pt is now extubated. COVID19 negative. PT/OT/ST ordered. SS will continue to follow for discharge planning.
[2020-05-25] MEDS ORDERED: ACETAMINOPHEN 325 MG TABLET. PO PRN (16:30)
--- NOTE | 2020-05-25 16:37 | PDOC ---
PULMONARY PROGRESS NOTES DATE: 05/25/20 TIME: 1000 Subjective Pt. is intubated sedated no overnight concerns Vitals Vital Signs Date Time Temp Pulse Resp B/P (MAP) Pulse Ox O2 Delivery O2 Flow Rate FiO2 05/25/20 16:05 97.5 78 20 98/65 (76) 96 Nasal Cannula 3.0 97.5 Labs Laboratory Tests Test 05/23/20 21:10 05/23/20 21:30 05/23/20 21:35 05/23/20 23:56 White Blood Count 20.9 x10^3/uL (4.0-11.0) Red Blood Count 5.29 x10^6/uL (4.30-5.70) Hemoglobin 15.7 g/dL (13.0-17.5) Hematocrit 47.8 % (39.0-53.0) Mean Corpuscular Volume 90 fL (79-100) Mean Corpuscular Hemoglobin 30 pg (25-35) Mean Corpuscular Hemoglobin Concent 33 g/dL (31-37) Red Cell Distribution Width 13.3 % (11.5-14.5) Platelet Count 207 x10^3/uL (140-400) Neutrophils (%) (Auto) 86 % (31-73) Lymphocytes (%) (Auto) 8 % (24-48) Monocytes (%) (Auto) 5 % (0-9) Eosinophils (%) (Auto) 0 % (0-3) Basophils (%) (Auto) 1 % (0-3) Neutrophils # (Auto) 17.9 x10^3/uL (1.8-7.7) Lymphocytes # (Auto) 1.7 x10^3/uL (1.0-4.8) Monocytes # (Auto) 1.1 x10^3/uL (0.0-1.1) Eosinophils # (Auto) 0.0 x10^3/uL (0.0-0.7) Basophils # (Auto) 0.1 x10^3/uL (0.0-0.2) Segmented Neutrophils % 85 % (35-66) Band Neutrophils % 1 % (0-9) Lymphocytes % 10 % (24-48) Monocytes % 4 % (0-10) Platelet Estimate Adequate (ADEQUATE) Prothrombin Time 14.7 SEC (11.7-14.0) Prothromb Time International Ratio 1.2 (0.8-1.1) Activated Partial Thromboplast Time 35 SEC (24-38) D-Dimer (Reanna) > 20.00 ug/mlFEU Sodium Level 137 mmol/L (136-145) Potassium Level 4.4 mmol/L (3.5-5.1) Chloride Level 102 mmol/L (98-107) Carbon Dioxide Level 21 mmol/L (21-32) Anion Gap 14 (6-14) Blood Urea Nitrogen 10 mg/dL (8-26) Creatinine 1.2 mg/dL (0.7-1.3) Estimated GFR (Cockcroft-Gault) 60.4 BUN/Creatinine Ratio 8 (6-20) Glucose Level 264 mg/dL (70-99) Lactic Acid Level 8.3 mmol/L (0.4-2.0) Calcium Level 8.9 mg/dL (8.5-10.1) Magnesium Level 1.9 mg/dL (1.8-2.4) Total Bilirubin 0.4 mg/dL (0.2-1.0) Aspartate Amino Transf (AST/SGOT) 33 U/L (15-37) Alanine Aminotransferase (ALT/SGPT) 35 U/L (16-63) Alkaline Phosphatase 90 U/L (46-116) Troponin I Quantitative 0.066 ng/mL (0.000-0.055) DL-Xnk-W-Type Natriuretic Peptide 199 pg/mL (0-124) Total Protein 5.9 g/dL (6.4-8.2) Albumin 2.5 g/dL (3.4-5.0) Albumin/Globulin Ratio 0.7 (1.0-1.7) SARS-CoV-2 Antigen (Rapid) Negative (NEGATIVE) Coronavirus (PCR) Not detected (Not Detected) O2 Saturation 98 % (92-99) Arterial Blood pH 7.24 (7.35-7.45) Arterial Blood pCO2 at Patient Temp 38 mmHg (35-46) Arterial Blood pO2 at Patient Temp 125 mmHg (65-108) Arterial Blood HCO3 16 mmol/L (21-28) Arterial Blood Base Excess -11 mmol/L (-3-3) Oxyhemoglobin 96.0 % Methemoglobin 0.4 % (0.0-1.9) Carbon Monoxide, Quantitative 1.6 % (0.0-1.9) FiO2 100 Test 05/24/20 03:45 05/24/20 07:30 05/24/20 09:00 05/24/20 23:45 Magnesium Level 1.9 mg/dL (1.8-2.4) Troponin I Quantitative 5.355 ng/mL (0.000-0.055) Triglycerides Level 108 mg/dL (0-150) Cholesterol Level 136 mg/dL (0-200) LDL Cholesterol, Calculated 72 mg/dL (0-100) VLDL Cholesterol, Calculated 22 mg/dL (0-40) Non-HDL Cholesterol Calculated 94 mg/dL (0-129) HDL Cholesterol 42 mg/dL (40-60) Cholesterol/HDL Ratio 3.2 O2 Saturation 99 % (92-99) Arterial Blood pH 7.35 (7.35-7.45) Arterial Blood pCO2 at Patient Temp 42 mmHg (35-46) Arterial Blood pO2 at Patient Temp 186 mmHg (65-108) Arterial Blood HCO3 23 mmol/L (21-28) Arterial Blood Base Excess -3 mmol/L (-3-3) FiO2 70/vent Sodium Level 139 mmol/L (136-145) Potassium Level 4.9 mmol/L (3.5-5.1) Chloride Level 106 mmol/L (98-107) Carbon Dioxide Level 26 mmol/L (21-32) Anion Gap 7 (6-14) Blood Urea Nitrogen 11 mg/dL (8-26) Creatinine 0.9 mg/dL (0.7-1.3) Estimated GFR (Cockcroft-Gault) 84.2 Glucose Level 95 mg/dL (70-99) Hemoglobin A1c 5.8 % (4.8-5.6) Lactic Acid Level 1.1 mmol/L (0.4-2.0) Calcium Level 8.0 mg/dL (8.5-10.1) Procalcitonin 2.35 ng/mL (0.00-0.10) Urine Collection Type U cath Urine Color Yellow Urine Clarity Clear Urine pH 5.5 (<5.0-8.0) Urine Specific [place] 1.020 (1.000-1.030) Urine Protein Negative mg/dL (NEG-TRACE) Urine Glucose (UA) Negative mg/dL (NEG) Urine Ketones (Stick) Negative mg/dL (NEG) Urine Blood Negative (NEG) Urine Nitrite Negative (NEG) Urine Bilirubin Negative (NEG) Urine Urobilinogen Dipstick 1.0 mg/dL (0.2 mg/dL) Urine Leukocyte Esterase Trace (NEG) Urine RBC 1-2 /HPF (0-2) Urine WBC 1-4 /HPF (0-4) Urine Squamous Epithelial Cells Occ /LPF Urine Bacteria 0 /HPF (0-FEW) Urine Hyaline Casts Few /HPF Urine Mucus Mod /LPF Urine Opiates Screen Neg (NEG) Urine Methadone Screen Neg (NEG) Urine Barbiturates Neg (NEG) Urine Phencyclidine Screen Neg (NEG) Urine Amphetamine/Methamphetamine Pos (NEG) Urine Benzodiazepines Screen Pos (NEG) Urine Cocaine Screen Neg (NEG) Urine Cannabinoids Screen Pos (NEG) Urine Ethyl Alcohol Neg (NEG) Test 05/25/20 05:10 05/25/20 08:00 05/25/20 12:13 White Blood Count 19.8 x10^3/uL (4.0-11.0) Red Blood Count 4.46 x10^6/uL (4.30-5.70) Hemoglobin 13.2 g/dL (13.0-17.5) Hematocrit 39.1 % (39.0-53.0) Mean Corpuscular Volume 88 fL (79-100) Mean Corpuscular Hemoglobin 30 pg (25-35) Mean Corpuscular Hemoglobin Concent 34 g/dL (31-37) Red Cell Distribution Width 13.6 % (11.5-14.5) Platelet Count 158 x10^3/uL (140-400) Neutrophils (%) (Auto) 82 % (31-73) Lymphocytes (%) (Auto) 9 % (24-48) Monocytes (%) (Auto) 9 % (0-9) Eosinophils (%) (Auto) 0 % (0-3) Basophils (%) (Auto) 0 % (0-3) Neutrophils # (Auto) 16.1 x10^3/uL (1.8-7.7) Lymphocytes # (Auto) 1.8 x10^3/uL (1.0-4.8) Monocytes # (Auto) 1.7 x10^3/uL (0.0-1.1) Eosinophils # (Auto) 0.1 x10^3/uL (0.0-0.7) Basophils # (Auto) 0.1 x10^3/uL (0.0-0.2) Sodium Level 136 mmol/L (136-145) Potassium Level 3.8 mmol/L (3.5-5.1) Chloride Level 102 mmol/L (98-107) Carbon Dioxide Level 27 mmol/L (21-32) Anion Gap 7 (6-14) Blood Urea Nitrogen 11 mg/dL (8-26) Creatinine 0.8 mg/dL (0.7-1.3) Estimated GFR (Cockcroft-Gault) 96.4 BUN/Creatinine Ratio 14 (6-20) Glucose Level 104 mg/dL (70-99) Calcium Level 7.5 mg/dL (8.5-10.1) Total Bilirubin 0.8 mg/dL (0.2-1.0) Aspartate Amino Transf (AST/SGOT) 32 U/L (15-37) Alanine Aminotransferase (ALT/SGPT) 27 U/L (16-63) Alkaline Phosphatase 63 U/L (46-116) C-Reactive Protein, Quantitative 100.2 mg/L (0-3.3) Total Protein 5.2 g/dL (6.4-8.2) Albumin 1.9 g/dL (3.4-5.0) Albumin/Globulin Ratio 0.6 (1.0-1.7) Procalcitonin 1.87 ng/mL (0.00-0.10) Free Thyroxine 1.26 ng/dL (0.76-1.46) O2 Saturation 95 % (92-99) 97 % (92-99) Arterial Blood pH 7.45 (7.35-7.45) 7.42 (7.35-7.45) Arterial Blood pCO2 at Patient Temp 34 mmHg (35-46) 35 mmHg (35-46) Arterial Blood pO2 at Patient Temp 70 mmHg (65-108) 99 mmHg (65-108) Arterial Blood HCO3 23 mmol/L (21-28) 22 mmol/L (21-28) Arterial Blood Base Excess -1 mmol/L (-3-3) -2 mmol/L (-3-3) FiO2 40/vent 40/cpap 5-5 Laboratory Tests Test 05/24/20 23:45 05/25/20 05:10 05/25/20 08:00 05/25/20 12:13 Urine Collection Type U cath Urine Color Yellow Urine Clarity Clear Urine pH 5.5 (<5.0-8.0) Urine Specific [place] 1.020 (1.000-1.030) Urine Protein Negative mg/dL (NEG-TRACE) Urine Glucose (UA) Negative mg/dL (NEG) Urine Ketones (Stick) Negative mg/dL (NEG) Urine Blood Negative (NEG) Urine Nitrite Negative (NEG) Urine Bilirubin Negative (NEG) Urine Urobilinogen Dipstick 1.0 mg/dL (0.2 mg/dL) Urine Leukocyte Esterase Trace (NEG) Urine RBC 1-2 /HPF (0-2) Urine WBC 1-4 /HPF (0-4) Urine Squamous Epithelial Cells Occ /LPF Urine Bacteria 0 /HPF (0-FEW) Urine Hyaline Casts Few /HPF Urine Mucus Mod /LPF Urine Opiates Screen Neg (NEG) Urine Methadone Screen Neg (NEG) Urine Barbiturates Neg (NEG) Urine Phencyclidine Screen Neg (NEG) Urine Amphetamine/Methamphetamine Pos (NEG) Urine Benzodiazepines Screen Pos (NEG) Urine Cocaine Screen Neg (NEG) Urine Cannabinoids Screen Pos (NEG) Urine Ethyl Alcohol Neg (NEG) White Blood Count 19.8 x10^3/uL (4.0-11.0) Red Blood Count 4.46 x10^6/uL (4.30-5.70) Hemoglobin 13.2 g/dL (13.0-17.5) Hematocrit 39.1 % (39.0-53.0) Mean Corpuscular Volume 88 fL (79-100) Mean Corpuscular Hemoglobin 30 pg (25-35) Mean Corpuscular Hemoglobin Concent 34 g/dL (31-37) Red Cell Distribution Width 13.6 % (11.5-14.5) Platelet Count 158 x10^3/uL (140-400) Neutrophils (%) (Auto) 82 % (31-73) Lymphocytes (%) (Auto) 9 % (24-48) Monocytes (%) (Auto) 9 % (0-9) Eosinophils (%) (Auto) 0 % (0-3) Basophils (%) (Auto) 0 % (0-3) Neutrophils # (Auto) 16.1 x10^3/uL (1.8-7.7) Lymphocytes # (Auto) 1.8 x10^3/uL (1.0-4.8) Monocytes # (Auto) 1.7 x10^3/uL (0.0-1.1) Eosinophils # (Auto) 0.1 x10^3/uL (0.0-0.7) Basophils # (Auto) 0.1 x10^3/uL (0.0-0.2) Sodium Level 136 mmol/L (136-145) Potassium Level 3.8 mmol/L (3.5-5.1) Chloride Level 102 mmol/L (98-107) Carbon Dioxide Level 27 mmol/L (21-32) Anion Gap 7 (6-14) Blood Urea Nitrogen 11 mg/dL (8-26) Creatinine 0.8 mg/dL (0.7-1.3) Estimated GFR (Cockcroft-Gault) 96.4 BUN/Creatinine Ratio 14 (6-20) Glucose Level 104 mg/dL (70-99) Calcium Level 7.5 mg/dL (8.5-10.1) Total Bilirubin 0.8 mg/dL (0.2-1.0) Aspartate Amino Transf (AST/SGOT) 32 U/L (15-37) Alanine Aminotransferase (ALT/SGPT) 27 U/L (16-63) Alkaline Phosphatase 63 U/L (46-116) C-Reactive Protein, Quantitative 100.2 mg/L (0-3.3) Total Protein 5.2 g/dL (6.4-8.2) Albumin 1.9 g/dL (3.4-5.0) Albumin/Globulin Ratio 0.6 (1.0-1.7) Procalcitonin 1.87 ng/mL (0.00-0.10) Free Thyroxine 1.26 ng/dL (0.76-1.46) O2 Saturation 95 % (92-99) 97 % (92-99) Arterial Blood pH 7.45 (7.35-7.45) 7.42 (7.35-7.45) Arterial Blood pCO2 at Patient Temp 34 mmHg (35-46) 35 mmHg (35-46) Arterial Blood pO2 at Patient Temp 70 mmHg (65-108) 99 mmHg (65-108) Arterial Blood HCO3 23 mmol/L (21-28) 22 mmol/L (21-28) Arterial Blood Base Excess -1 mmol/L (-3-3) -2 mmol/L (-3-3) FiO2 40/vent 40/cpap 5-5 Comments CXR Impression: Unchanged support device positioning and diffuse reticulonodular densities throughout both lungs. Impression . IMPRESSION: 1. [id number] cardiopulmonary arrest secondary to inferior wall ME. 2. Status post emergent cardiac catheterization with PCI to the RCA. 3. ST segment elevation myocardial infarction. 4. History of alcoholism. 5. Leukocytosis, suspect reactive. 6. Lactic acidosis related to [id number] cardiopulmonary arrest. Plan . PLAN: continue current vent support, proceed with sedation vacation and pressure support trial once femoral line has been removed Will follow CXR/ABG and proceed with extubation if adequate Follow cardiology recs - S/p PCI to RCA --A/C per cardiology Follow ID recs CIWA PT/OT/ST DVT/GI PPX D/W RN and RT MESERET OTOOLE MD May 25, 2020 16:37
--- NOTE | 2020-05-25 16:57 | PDOC ---
KARLIE CADENA SOLDERING TECHNICIAN 05/25/20 1657: CARDIO Progress Notes Date and Time Date of Service 05/25/2020 Time of Evaluation 1620 Subjective Subjective: No Chest Pain, No shortness of breath, No Palpitations, Other (complains of TRAMMELL) Vitals Vitals Vital Signs Date Time Temp Pulse Resp B/P (MAP) Pulse Ox O2 Delivery O2 Flow Rate FiO2 05/25/20 16:05 97.5 78 20 98/65 (76) 96 Nasal Cannula 3.0 97.5 Weight Weight [ ] Input and Output Intake and Output Intake and Output 05/25/20 07:00 Intake Total 2759.7 ml Output Total 3145 ml Balance -385.3 ml Intake Oral 0 ml IV Total 2759.7 ml Output Urine Total 3145 ml Laboratory Labs Laboratory Tests Test 05/24/20 23:45 05/25/20 05:10 05/25/20 08:00 05/25/20 12:13 Urine Collection Type U cath Urine Color Yellow Urine Clarity Clear Urine pH 5.5 (<5.0-8.0) Urine Specific [place] 1.020 (1.000-1.030) Urine Protein Negative mg/dL (NEG-TRACE) Urine Glucose (UA) Negative mg/dL (NEG) Urine Ketones (Stick) Negative mg/dL (NEG) Urine Blood Negative (NEG) Urine Nitrite Negative (NEG) Urine Bilirubin Negative (NEG) Urine Urobilinogen Dipstick 1.0 mg/dL (0.2 mg/dL) Urine Leukocyte Esterase Trace (NEG) Urine RBC 1-2 /HPF (0-2) Urine WBC 1-4 /HPF (0-4) Urine Squamous Epithelial Cells Occ /LPF Urine Bacteria 0 /HPF (0-FEW) Urine Hyaline Casts Few /HPF Urine Mucus Mod /LPF Urine Opiates Screen Neg (NEG) Urine Methadone Screen Neg (NEG) Urine Barbiturates Neg (NEG) Urine Phencyclidine Screen Neg (NEG) Urine Amphetamine/Methamphetamine Pos (NEG) Urine Benzodiazepines Screen Pos (NEG) Urine Cocaine Screen Neg (NEG) Urine Cannabinoids Screen Pos (NEG) Urine Ethyl Alcohol Neg (NEG) White Blood Count 19.8 x10^3/uL (4.0-11.0) Red Blood Count 4.46 x10^6/uL (4.30-5.70) Hemoglobin 13.2 g/dL (13.0-17.5) Hematocrit 39.1 % (39.0-53.0) Mean Corpuscular Volume 88 fL (79-100) Mean Corpuscular Hemoglobin 30 pg (25-35) Mean Corpuscular Hemoglobin Concent 34 g/dL (31-37) Red Cell Distribution Width 13.6 % (11.5-14.5) Platelet Count 158 x10^3/uL (140-400) Neutrophils (%) (Auto) 82 % (31-73) Lymphocytes (%) (Auto) 9 % (24-48) Monocytes (%) (Auto) 9 % (0-9) Eosinophils (%) (Auto) 0 % (0-3) Basophils (%) (Auto) 0 % (0-3) Neutrophils # (Auto) 16.1 x10^3/uL (1.8-7.7) Lymphocytes # (Auto) 1.8 x10^3/uL (1.0-4.8) Monocytes # (Auto) 1.7 x10^3/uL (0.0-1.1) Eosinophils # (Auto) 0.1 x10^3/uL (0.0-0.7) Basophils # (Auto) 0.1 x10^3/uL (0.0-0.2) Sodium Level 136 mmol/L (136-145) Potassium Level 3.8 mmol/L (3.5-5.1) Chloride Level 102 mmol/L (98-107) Carbon Dioxide Level 27 mmol/L (21-32) Anion Gap 7 (6-14) Blood Urea Nitrogen 11 mg/dL (8-26) Creatinine 0.8 mg/dL (0.7-1.3) Estimated GFR (Cockcroft-Gault) 96.4 BUN/Creatinine Ratio 14 (6-20) Glucose Level 104 mg/dL (70-99) Calcium Level 7.5 mg/dL (8.5-10.1) Total Bilirubin 0.8 mg/dL (0.2-1.0) Aspartate Amino Transf (AST/SGOT) 32 U/L (15-37) Alanine Aminotransferase (ALT/SGPT) 27 U/L (16-63) Alkaline Phosphatase 63 U/L (46-116) C-Reactive Protein, Quantitative 100.2 mg/L (0-3.3) Total Protein 5.2 g/dL (6.4-8.2) Albumin 1.9 g/dL (3.4-5.0) Albumin/Globulin Ratio 0.6 (1.0-1.7) Procalcitonin 1.87 ng/mL (0.00-0.10) Free Thyroxine 1.26 ng/dL (0.76-1.46) O2 Saturation 95 % (92-99) 97 % (92-99) Arterial Blood pH 7.45 (7.35-7.45) 7.42 (7.35-7.45) Arterial Blood pCO2 at Patient Temp 34 mmHg (35-46) 35 mmHg (35-46) Arterial Blood pO2 at Patient Temp 70 mmHg (65-108) 99 mmHg (65-108) Arterial Blood HCO3 23 mmol/L (21-28) 22 mmol/L (21-28) Arterial Blood Base Excess -1 mmol/L (-3-3) -2 mmol/L (-3-3) FiO2 40/vent 40/cpap 5-5 Microbiology Micro Microbiology 05/23/20 Blood Culture - Preliminary, Resulted NO GROWTH AFTER 1 DAY Physical Exam HEENT: Neck Supple W Full Motion Chest: Symmetric LUNGS: Other (diminished bases) Heart: RRR (SR) Abdomen: Soft N/T Extremities: No Edema Neurology: alert, oriented, follow commands, other (sedated) Other Exams Left groin arteriotomy site intact, no erythema, swelling, neurovascular status intact Assessment Assessment 1. Witnessed Vfib OOH cardiac arrest: due to ischemia 10 min to ROSC via ACLS protocol. Received amiodarone bolus 2. Nontraumatic fall: due to above 3. Acute systolic CHF 4. Acute inferoposterior SD: urgent PCI/JANESSA to RCA. EF is preserved 5. Acute respiratory failure: now extubated per pulmonary 6. Encephalopathy: mentation back to baseline 7. Reactive leukocytosis 8. TRAMMELL: likely from tobacco and caffeine (heavy use) withdrawal. per PCP 9. Substance abuse: +meth, marijuana Recommendations 1. Hemodynamically stable No further ventricular arrhythmias nor any reperfusion arrhythymias, Continue Metoprolol 2. ASA, plavix. Good UOP. high dose statin. Lasix 3. Neuro eval when off sedation. 4. TTE 5. Cardiac rehab 6. Abstinence to meth/marijuana and smoking Justicifation of Admission Dx: Justifications for Admission: Justification of Admission Dx: Yes FREEMAN RAY MD 05/25/20 1853: CARDIO Progress Notes Assessment Assessment Patient seen and examined. Agree with [employer]'s assessment and plan. Ac inferoposterior SD s/p PCI/JANESSA to RCA, continue DAPT VT/VF, ischemic, no further episodes on tele ARF s/p extubation, doing well Off pressors. Plan transfer to tele tomorrow and possibly DC home thursday KARLIE CADENA APRN May 25, 2020 16:57 FREEMAN RAY MD May 25, 2020 18:53
[2020-05-25] MEDS ORDERED: NICOTINE 21MG PATCH. TD SCH (17:00)
[2020-05-25] MEDS: ATORVASTATIN CALCIUM 20 MG TABLET PO SCH (18:53)
[2020-05-26] VITALS (19 sets, daily range): BP systolic 133–174; BP diastolic 73–95
--- NOTE | 2020-05-26 07:15 | PDOC ---
PULMONARY PROGRESS NOTES DATE: 05/26/20 TIME: 07:14 Subjective extubated 05/25, on 02 3lpm denies sob, has cough is thirsty Vitals Vital Signs Date Time Temp Pulse Resp B/P (MAP) Pulse Ox O2 Delivery O2 Flow Rate FiO2 05/26/20 06:08 93 18 153/95 (114) 96 Nasal Cannula 3.0 05/26/20 03:00 97.9 97.9 ROS: No Nausea General: Alert HEENT: Other (nc at perrl ) Lungs: Clear Cardiovascular: S1, S2 Abdomen: Soft, Non-tender Neuro Exam: Alert Skin: Warm Labs Laboratory Tests Test 05/24/20 07:30 05/24/20 09:00 05/24/20 23:45 05/25/20 05:10 O2 Saturation 99 % (92-99) Arterial Blood pH 7.35 (7.35-7.45) Arterial Blood pCO2 at Patient Temp 42 mmHg (35-46) Arterial Blood pO2 at Patient Temp 186 mmHg (65-108) Arterial Blood HCO3 23 mmol/L (21-28) Arterial Blood Base Excess -3 mmol/L (-3-3) FiO2 70/vent Sodium Level 139 mmol/L (136-145) 136 mmol/L (136-145) Potassium Level 4.9 mmol/L (3.5-5.1) 3.8 mmol/L (3.5-5.1) Chloride Level 106 mmol/L (98-107) 102 mmol/L (98-107) Carbon Dioxide Level 26 mmol/L (21-32) 27 mmol/L (21-32) Anion Gap 7 (6-14) 7 (6-14) Blood Urea Nitrogen 11 mg/dL (8-26) 11 mg/dL (8-26) Creatinine 0.9 mg/dL (0.7-1.3) 0.8 mg/dL (0.7-1.3) Estimated GFR (Cockcroft-Gault) 84.2 96.4 Glucose Level 95 mg/dL (70-99) 104 mg/dL (70-99) Hemoglobin A1c 5.8 % (4.8-5.6) Lactic Acid Level 1.1 mmol/L (0.4-2.0) Calcium Level 8.0 mg/dL (8.5-10.1) 7.5 mg/dL (8.5-10.1) Procalcitonin 2.35 ng/mL (0.00-0.10) 1.87 ng/mL (0.00-0.10) Urine Collection Type U cath Urine Color Yellow Urine Clarity Clear Urine pH 5.5 (<5.0-8.0) Urine Specific [place] 1.020 (1.000-1.030) Urine Protein Negative mg/dL (NEG-TRACE) Urine Glucose (UA) Negative mg/dL (NEG) Urine Ketones (Stick) Negative mg/dL (NEG) Urine Blood Negative (NEG) Urine Nitrite Negative (NEG) Urine Bilirubin Negative (NEG) Urine Urobilinogen Dipstick 1.0 mg/dL (0.2 mg/dL) Urine Leukocyte Esterase Trace (NEG) Urine RBC 1-2 /HPF (0-2) Urine WBC 1-4 /HPF (0-4) Urine Squamous Epithelial Cells Occ /LPF Urine Bacteria 0 /HPF (0-FEW) Urine Hyaline Casts Few /HPF Urine Mucus Mod /LPF Urine Opiates Screen Neg (NEG) Urine Methadone Screen Neg (NEG) Urine Barbiturates Neg (NEG) Urine Phencyclidine Screen Neg (NEG) Urine Amphetamine/Methamphetamine Pos (NEG) Urine Benzodiazepines Screen Pos (NEG) Urine Cocaine Screen Neg (NEG) Urine Cannabinoids Screen Pos (NEG) Urine Ethyl Alcohol Neg (NEG) White Blood Count 19.8 x10^3/uL (4.0-11.0) Red Blood Count 4.46 x10^6/uL (4.30-5.70) Hemoglobin 13.2 g/dL (13.0-17.5) Hematocrit 39.1 % (39.0-53.0) Mean Corpuscular Volume 88 fL (79-100) Mean Corpuscular Hemoglobin 30 pg (25-35) Mean Corpuscular Hemoglobin Concent 34 g/dL (31-37) Red Cell Distribution Width 13.6 % (11.5-14.5) Platelet Count 158 x10^3/uL (140-400) Neutrophils (%) (Auto) 82 % (31-73) Lymphocytes (%) (Auto) 9 % (24-48) Monocytes (%) (Auto) 9 % (0-9) Eosinophils (%) (Auto) 0 % (0-3) Basophils (%) (Auto) 0 % (0-3) Neutrophils # (Auto) 16.1 x10^3/uL (1.8-7.7) Lymphocytes # (Auto) 1.8 x10^3/uL (1.0-4.8) Monocytes # (Auto) 1.7 x10^3/uL (0.0-1.1) Eosinophils # (Auto) 0.1 x10^3/uL (0.0-0.7) Basophils # (Auto) 0.1 x10^3/uL (0.0-0.2) BUN/Creatinine Ratio 14 (6-20) Total Bilirubin 0.8 mg/dL (0.2-1.0) Aspartate Amino Transf (AST/SGOT) 32 U/L (15-37) Alanine Aminotransferase (ALT/SGPT) 27 U/L (16-63) Alkaline Phosphatase 63 U/L (46-116) C-Reactive Protein, Quantitative 100.2 mg/L (0-3.3) Total Protein 5.2 g/dL (6.4-8.2) Albumin 1.9 g/dL (3.4-5.0) Albumin/Globulin Ratio 0.6 (1.0-1.7) Free Thyroxine 1.26 ng/dL (0.76-1.46) Test 05/25/20 08:00 05/25/20 12:13 O2 Saturation 95 % (92-99) 97 % (92-99) Arterial Blood pH 7.45 (7.35-7.45) 7.42 (7.35-7.45) Arterial Blood pCO2 at Patient Temp 34 mmHg (35-46) 35 mmHg (35-46) Arterial Blood pO2 at Patient Temp 70 mmHg (65-108) 99 mmHg (65-108) Arterial Blood HCO3 23 mmol/L (21-28) 22 mmol/L (21-28) Arterial Blood Base Excess -1 mmol/L (-3-3) -2 mmol/L (-3-3) FiO2 40/vent 40/cpap 5-5 Laboratory Tests Test 05/25/20 08:00 05/25/20 12:13 O2 Saturation 95 % (92-99) 97 % (92-99) Arterial Blood pH 7.45 (7.35-7.45) 7.42 (7.35-7.45) Arterial Blood pCO2 at Patient Temp 34 mmHg (35-46) 35 mmHg (35-46) Arterial Blood pO2 at Patient Temp 70 mmHg (65-108) 99 mmHg (65-108) Arterial Blood HCO3 23 mmol/L (21-28) 22 mmol/L (21-28) Arterial Blood Base Excess -1 mmol/L (-3-3) -2 mmol/L (-3-3) FiO2 40/vent 40/cpap 5-5 Comments CXR Impression: Unchanged support device positioning and diffuse reticulonodular densities throughout both lungs. Impression . IMPRESSION: 1. [id number] cardiopulmonary arrest secondary to inferior wall [place]. 2. Status post emergent cardiac catheterization with PCI to the RCA. 3. ST segment elevation myocardial infarction. 4. History of alcoholism. 5. Leukocytosis, suspect reactive. 6. Lactic acidosis related to [id number] cardiopulmonary arrest. Plan . PLAN: 02 titration start IS Follow cardiology recs - S/p PCI to RCA --A/C per cardiology Follow ID recs [id number] PT/OT/ST DVT/GI PPX D/W RN and RT HOMERO VICTOR MD May 26, 2020 07:15
[2020-05-26] MEDS: THIAMINE INJ 100 MG, FOLIC ACID INJ 1 MG in IV NORMAL SALINE 1000ML BAG 1,000 ML IV SCH (08:46)
[2020-05-26] MEDS: ASPIRIN ENTERIC COATED 325 MG TABLET.DR. PO SCH (08:47)
[2020-05-26] MEDS: CLOPIDOGREL BISULFATE 75 MG TABLET PO SCH (08:47)
[2020-05-26] MEDS: METOPROLOL TART IMMED RELEASE 25 MG TABLET. PO SCH ×2 (08:48→20:45)
[2020-05-26] MEDS: NICOTINE 21MG PATCH. TD SCH (08:51)
[2020-05-26] MEDS: MULTIVITAMIN with MINERAL TABLET. PO SCH (09:00)
[2020-05-26] MEDS: FUROSEMIDE 40 MG/4 ML VIAL. IVP SCH (09:03)
--- NOTE | 2020-05-26 10:22 | PDOC ---
PROGRESS NOTES Date of Service: DATE: 05/26/20 TIME: 10:22 Chief Complaint Chief Complaint ASSESSMENT: 1. Cardiac arrest. 2. Severe single vessel coronary artery disease involving the right coronary artery and post-PCI with drug-eluting stent placement to the right coronary artery by Dr. Fajardo today. 3. Normal ef 55%. 4. ST-elevation myocardial infarction. 5. Tobacco abuse disorder. 6. Ischemic ventricular tachycardia. 7. LEUKOCYTOSIS without fever 8. 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 severe protein-caloric malnutrition PLAN: ICU bed. Aspirin 325 mg daily, Plavix 75 mg daily. off pressors and vent. Cardiology consult and Pulmonary consult. GI prophylaxis. ID CONSULT, PROCALCITONIN neurology consult, was cancelled yesterday, not by me , will request again PPN AT 85/ HR 05/26 MILD CONFUSION, knows year and month, place, cannot do serial sevens, finger to nose exam without dysmetria bilaterally ct head was cancelled yesterday, unsure why, will re-order, he admits to THC USE one week ago admits to remote hx meth abuse, but denies recent use remote hx alcohol abuse for which he was in treatment , remote memory is intact, recalls [employer] not winning many games this year 38 min cc time 2-26 OFF VENT, AWAKE , ID CONSULT 34 minutes of critical care time spent. This is a supplement to the DATA for admission. Estimated length of stay greater than 3 days due to cardiac arrest and acute STEMI. PROGNOSIS: Guarded given OUT OF HOSPITAL ARREST . History of Present Illness History of Present Illness CHIEF COMPLAINT: Cardiac arrest. HISTORY OF PRESENT ILLNESS: This 69-year-old male apparently [place] and began to feel nauseated and diaphoretic. They left the [place] for home. He had a drink of soda to relieve his nausea, he continued to feel short of breath. Per family, his found him after she heard a loud thud and he had passed out. EMS was summoned and the patient was found to be in V-fib on their arrival. required defibrillation and he was coded for 10 minutes prior to arrival here. EKG showed right bundle branch block. Therefore, the plan was to rule out PE with CTA of the chest. He was intubated for respiratory failure. Another episode of V-tach fibrillation but successfully defibrillated here. Code STEMI was activated. He was taken emergently to the cardiac catheterization lab, at which time he was found to have critical right coronary artery stenosis, stent was placed. Chest x-ray shows diffuse interstitial opacities in both lungs. Denies depression or anxiety. He is a smoker less than pack a day. PAST MEDICAL HISTORY: Hyperlipidemia, hypertension. SOCIAL HISTORY: Smokes less than 1 pack per day. No alcohol or tobacco use per family pos THC USE, REMOTE METH ABUSE. REVIEW OF SYSTEMS: Denies much except he is hungry, wants to go home Vitals Vitals Vital Signs Date Time Temp Pulse Resp B/P (MAP) Pulse Ox O2 Delivery O2 Flow Rate FiO2 05/26/20 10:16 85 18 133/78 (96) 94 Nasal Cannula 3.0 05/26/20 03:00 97.9 97.9 Physical Exam Physical Exam SITTING IN BEDSIDE CHAIR General: Alert, Oriented X3, Cooperative, No acute distress, Other (RIGHT CONJUNCTIVITIS) Heart: Regular rate, Normal S1, Normal S2 Abdomen: Normal bowel sounds, Soft, No tenderness, No hepatosplenomegaly Extremities: No cyanosis, No edema Skin: Other (patches of alopecia on scalp) Labs LABS Laboratory Tests Test 05/25/20 12:13 O2 Saturation 97 % (92-99) Arterial Blood pH 7.42 (7.35-7.45) Arterial Blood pCO2 at Patient Temp 35 mmHg (35-46) Arterial Blood pO2 at Patient Temp 99 mmHg (65-108) Arterial Blood HCO3 22 mmol/L (21-28) Arterial Blood Base Excess -2 mmol/L (-3-3) FiO2 40/cpap 5-5 Assessment and Plan Assessmemt and Plan Problems Medical Problems: (1) Cardiac arrest Status: Acute Comment Review of Relevant I have reviewed the following items gill (where applicable) has been applied. Labs Laboratory Tests Test 05/24/20 23:45 05/25/20 05:10 05/25/20 08:00 05/25/20 12:13 Urine Collection Type U cath Urine Color Yellow Urine Clarity Clear Urine pH 5.5 (<5.0-8.0) Urine Specific [place] 1.020 (1.000-1.030) Urine Protein Negative mg/dL (NEG-TRACE) Urine Glucose (UA) Negative mg/dL (NEG) Urine Ketones (Stick) Negative mg/dL (NEG) Urine Blood Negative (NEG) Urine Nitrite Negative (NEG) Urine Bilirubin Negative (NEG) Urine Urobilinogen Dipstick 1.0 mg/dL (0.2 mg/dL) Urine Leukocyte Esterase Trace (NEG) Urine RBC 1-2 /HPF (0-2) Urine WBC 1-4 /HPF (0-4) Urine Squamous Epithelial Cells Occ /LPF Urine Bacteria 0 /HPF (0-FEW) Urine Hyaline Casts Few /HPF Urine Mucus Mod /LPF Urine Opiates Screen Neg (NEG) Urine Methadone Screen Neg (NEG) Urine Barbiturates Neg (NEG) Urine Phencyclidine Screen Neg (NEG) Urine Amphetamine/Methamphetamine Pos (NEG) Urine Benzodiazepines Screen Pos (NEG) Urine Cocaine Screen Neg (NEG) Urine Cannabinoids Screen Pos (NEG) Urine Ethyl Alcohol Neg (NEG) White Blood Count 19.8 x10^3/uL (4.0-11.0) Red Blood Count 4.46 x10^6/uL (4.30-5.70) Hemoglobin 13.2 g/dL (13.0-17.5) Hematocrit 39.1 % (39.0-53.0) Mean Corpuscular Volume 88 fL (79-100) Mean Corpuscular Hemoglobin 30 pg (25-35) Mean Corpuscular Hemoglobin Concent 34 g/dL (31-37) Red Cell Distribution Width 13.6 % (11.5-14.5) Platelet Count 158 x10^3/uL (140-400) Neutrophils (%) (Auto) 82 % (31-73) Lymphocytes (%) (Auto) 9 % (24-48) Monocytes (%) (Auto) 9 % (0-9) Eosinophils (%) (Auto) 0 % (0-3) Basophils (%) (Auto) 0 % (0-3) Neutrophils # (Auto) 16.1 x10^3/uL (1.8-7.7) Lymphocytes # (Auto) 1.8 x10^3/uL (1.0-4.8) Monocytes # (Auto) 1.7 x10^3/uL (0.0-1.1) Eosinophils # (Auto) 0.1 x10^3/uL (0.0-0.7) Basophils # (Auto) 0.1 x10^3/uL (0.0-0.2) Sodium Level 136 mmol/L (136-145) Potassium Level 3.8 mmol/L (3.5-5.1) Chloride Level 102 mmol/L (98-107) Carbon Dioxide Level 27 mmol/L (21-32) Anion Gap 7 (6-14) Blood Urea Nitrogen 11 mg/dL (8-26) Creatinine 0.8 mg/dL (0.7-1.3) Estimated GFR (Cockcroft-Gault) 96.4 BUN/Creatinine Ratio 14 (6-20) Glucose Level 104 mg/dL (70-99) Calcium Level 7.5 mg/dL (8.5-10.1) Total Bilirubin 0.8 mg/dL (0.2-1.0) Aspartate Amino Transf (AST/SGOT) 32 U/L (15-37) Alanine Aminotransferase (ALT/SGPT) 27 U/L (16-63) Alkaline Phosphatase 63 U/L (46-116) C-Reactive Protein, Quantitative 100.2 mg/L (0-3.3) Total Protein 5.2 g/dL (6.4-8.2) Albumin 1.9 g/dL (3.4-5.0) Albumin/Globulin Ratio 0.6 (1.0-1.7) Procalcitonin 1.87 ng/mL (0.00-0.10) Free Thyroxine 1.26 ng/dL (0.76-1.46) O2 Saturation 95 % (92-99) 97 % (92-99) Arterial Blood pH 7.45 (7.35-7.45) 7.42 (7.35-7.45) Arterial Blood pCO2 at Patient Temp 34 mmHg (35-46) 35 mmHg (35-46) Arterial Blood pO2 at Patient Temp 70 mmHg (65-108) 99 mmHg (65-108) Arterial Blood HCO3 23 mmol/L (21-28) 22 mmol/L (21-28) Arterial Blood Base Excess -1 mmol/L (-3-3) -2 mmol/L (-3-3) FiO2 40/vent 40/cpap 5-5 Laboratory Tests Test 05/25/20 12:13 O2 Saturation 97 % (92-99) Arterial Blood pH 7.42 (7.35-7.45) Arterial Blood pCO2 at Patient Temp 35 mmHg (35-46) Arterial Blood pO2 at Patient Temp 99 mmHg (65-108) Arterial Blood HCO3 22 mmol/L (21-28) Arterial Blood Base Excess -2 mmol/L (-3-3) FiO2 40/cpap 5-5 Microbiology 05/25/20 Urine Culture - Final, Complete 05/23/20 Blood Culture - Preliminary, Resulted NO GROWTH AFTER 1 DAY Medications Current Medications Sodium Chloride 1,000 ml @ 1,000 mls/hr 1X ONCE IV Last administered on 05/23/20at 20:50; Start 05/23/20 at 21:00; Stop 05/23/20 at 21:59; Status DC Propofol 100 ml @ As Directed STK-MED ONCE IV ; Start 05/23/20 at 20:57; Stop 05/23/20 at 20:57; Status DC Norepinephrine Bitartrate 8 mg/ Dextrose 258 ml @ 11.61 mls/ hr 1X ONCE IV ; Start 05/23/20 at 21:15; Stop 05/24/20 at 19:28; Status DC Magnesium Sulfate 0 ml @ As Directed STK-MED ONCE IV ; Start 05/23/20 at 21:16; Stop 05/23/20 at 21:16; Status DC Epinephrine HCl 5 mg/Sodium Chloride 255 ml @ 0.306 mls/ hr 1X ONCE IV Last administered on 05/23/20at 21:33; Start 05/23/20 at 22:00; Stop 06/27/20 at 15:19 Heparin Sodium (Porcine) (Heparin Sodium) 10,000 unit STK-MED ONCE .ROUTE ; Start 05/23/20 at 21:36; Stop 05/23/20 at 21:37; Status DC Aspirin (Aspirin Rectal Supp) 300 mg 1X ONCE AL Last administered on 05/23/20at 21:45; Start 05/23/20 at 22:30; Stop 05/23/20 at 22:31; Status DC Heparin Sodium (Porcine) (Heparin Sodium) 4,000 unit 1X ONCE IV Last administered on 05/23/20at 21:54; Start 05/23/20 at 22:00; Stop 05/23/20 at 2 2:01; Status DC Lidocaine HCl (Lidocaine 1% 20ml Vial) 20 ml STK-MED ONCE .ROUTE ; Start 05/23/20 at 21:55; Stop 05/23/20 at 21:56; Status DC Heparin Sodium/ Sodium Chloride 1,000 ml @ As Directed STK-MED ONCE .ROUTE ; Start 05/23/20 at 21:56; Stop 05/23/20 at 21:56; Status DC Iodixanol (Visipaque 320) 100 ml STK-MED ONCE .ROUTE ; Start 05/23/20 at 21:56; Stop 05/23/20 at 21:56; Status DC Bivalirudin (Angiomax) 250 mg STK-MED ONCE IV ; Start 05/23/20 at 21:58; Stop 05/23/20 at 21:58; Status DC Etomidate (Amidate) 20 mg STK-MED ONCE IV ; Start 05/23/20 at 22:01; Stop 05/23/20 at 22:02; Status DC Midazolam HCl (Versed) 5 mg STK-MED ONCE .ROUTE ; Start 05/23/20 at 22:01; Stop 05/23/20 at 22:02; Status DC Succinylcholine Chloride (Anectine) 200 mg STK-MED ONCE .ROUTE ; Start 05/23/20 at 22:02; Stop 05/23/20 at 22:02; Status DC Iohexol (Omnipaque 350 Mg/ml) 100 ml 1X ONCE IV ; Start 05/23/20 at 23:00; Stop 05/23/20 at 23:01; Status DC Info (CONTRAST GIVEN -- Rx MONITORING) 1 each PRN DAILY PRN MC SEE COMMENTS; Start 05/23/20 at 22:15; Stop 05/25/20 at 22:14; Status DC Piperacillin Sod/ Tazobactam Sod 4.5 gm/Sodium Chloride 100 ml @ 200 mls/hr 1X ONCE IV Last administered on 05/24/20at 00:49; Start 05/23/20 at 23:00; Stop 05/23/20 at 23:29; Status DC Heparin Sodium/ Sodium Chloride (HEPARIN for ARTERIAL LINE FLUSH) 1,000 unit 1X ONCE IART Last administered on 05/23/20at 23:19; Start 05/23/20 at 23:00; Stop 05/23/20 at 23:01; Status DC Iodixanol (Visipaque 320) 100 ml 1X ONCE IART Last administered on 05/23/20at 23:19; Start 05/23/20 at 23:00; Stop 05/23/20 at 23:01; Status DC Bivalirudin (Angiomax) 250 mg 1X ONCE IV Last administered on 05/23/20at 23:23; Start 05/23/20 at 23:00; Stop 05/23/20 at 23:01; Status DC Lidocaine HCl (Lidocaine 1% 20ml Vial) 20 ml 1X ONCE INJ Last administered on 05/23/20at 23:22; Start 05/23/20 at 23:00; Stop 05/23/20 at 23:01; Status DC Clopidogrel Bisulfate (Plavix) 600 mg 1X ONCE PO Last administered on 05/23/20at 23:23; Start 05/23/20 at 23:00; Stop 05/23/20 at 23:01; Status DC Clopidogrel Bisulfate (Plavix) 75 mg STK-MED ONCE .ROUTE ; Start 05/23/20 at 22:45; Stop 05/23/20 at 22:45; Status DC Sodium Chloride 1,000 ml @ 75 mls/hr [id number] IV Last administered on 05/25/20at 19:58; Start 05/23/20 at 23:00 Aspirin (Ecotrin) 325 mg DAILYWBKFT PO Last administered on 05/26/20at 08:47; Start 05/24/20 at 08:00 Clopidogrel Bisulfate (Plavix) 75 mg DAILYWBKFT PO Last administered on 05/26/20at 08:47; Start 05/24/20 at 08:00 Metoprolol Tartrate (Lopressor) 12.5 mg BID PO Last administered on 05/26/20at 08:48; Start 05/24/20 at 09:00 Atorvastatin Calcium (Lipitor) 40 mg QHS PO Last administered on 05/24/20at 20:40; Start 05/24/20 at 21:00 Nitroglycerin (Nitrostat) 0.4 mg PRN Q5MIN PRN SL CHEST PAIN; Start 05/23/20 at 23:00 Fentanyl Citrate 30 ml @ 0 mls/hr CONT PRN IV SEE PROTOCOL Last administered on 05/25/20at 05:22; Start 05/23/20 at 23:15; Stop 05/25/20 at 13:07; Status DC Propofol 100 ml @ 0 mls/hr CONT PRN IV PER PROTOCOL Last administered on 05/25/20at 08:13; Start 05/23/20 at 23:15; Stop 05/25/20 at 13:07; Status DC Amiodarone HCl (Cordarone) 300 mg 1X ONCE IVP Last administered on 05/23/20at 21:23; Start 05/23/20 at 23:45; Stop 05/23/20 at 23:46; Status DC Etomidate (Amidate) 20 mg 1X ONCE IV Last administered on 05/23/20 20:43; Start 05/24/20 at 00:00; Stop 05/24/20 at 00:03; Status DC Succinylcholine Chloride (Anectine) 100 mg 1X ONCE IV Last administered on 05/23/20 20:43; Start 05/24/20 at 00:00; Stop 05/24/20 at 00:03; Status DC Midazolam HCl (Versed) 10 mg 1X ONCE IV Last administered on 05/23/20 20:56; Start 05/24/20 at 00:00; Stop 05/24/20 at 00:03; Status DC Magnesium Sulfate 50 ml @ 25 mls/hr 1X ONCE IV Last administered on 05/24/20at 04:40; Start 05/24/20 at 00:30; Stop 05/24/20 at 02:29; Status DC Sodium Chloride 1,000 ml @ 1,000 mls/hr 1X ONCE IV Last administered on 05/23/20at 21:00; Start 05/24/20 at 00:00; Stop 05/24/20 at 00:59; Status DC Sodium Chloride 1,000 ml @ 1,000 mls/hr 1X ONCE IV Last administered on 05/24/20at 00:53; Start 05/24/20 at 00:00; Stop 05/24/20 at 00:59; Status DC Magnesium Sulfate/ Dextrose 100 ml @ 100 mls/hr 1X ONCE IV Last administered on 05/23/20 21:20; Start 05/24/20 at 00:15; Stop 05/24/20 at 01:14; Status DC Epinephrine HCl (EPINEPHrine SYRINGE) 1 mg 1X ONCE IV Last administered on 05/23/20 21:16; Start 05/24/20 at 00:15; Stop 05/24/20 at 00:20; Status DC Epinephrine HCl (EPINEPHrine SYRINGE) 1 mg 1X ONCE IV Last administered on 2/24/21at 21:29; Start 05/24/20 at 00:15; Stop 05/24/20 at 00:20; Status DC Thiamine HCl 100 mg/Folic Acid 1 mg/Sodium Chloride 1,001.2 ml @ 99.012 mls/hr 1X ONCE IV Last administered on 05/24/20at 14:31; Start 05/24/20 at 14:00; Stop 05/25/20 at 00:06; Status DC Furosemide (Lasix) 40 mg 1X ONCE IVP Last administered on 05/24/20at 14:31; Start 05/24/20 at 12:15; Stop 05/24/20 at 12:16; Status DC Furosemide (Lasix) 40 mg DAILY IVP Last administered on 05/26/20at 09:03; Start 05/25/20 at 09:00 Dexmedetomidine HCl 400 mcg/ Sodium Chloride 100 ml @ 3.255 mls/ hr CONT PRN IV PER PROTOCOL Last administered on 05/25/20at 08:11; Start 05/25/20 at 07:45; Stop 05/25/20 at 13:07; Status DC Midazolam HCl (Versed) 2 mg STK-MED ONCE .ROUTE ; Start 05/25/20 at 09:22; Stop 05/25/20 at 09:22; Status DC Midazolam HCl (Versed) 2 mg 1X ONCE IV Last administered on 05/25/20at 09:27; Start 05/25/20 at 09:30; Stop 05/25/20 at 09:31; Status DC Midazolam HCl (Versed) 2 mg 1X ONCE IV ; Start 05/25/20 at 09:30; Stop 05/25/20 at 13:07; Status DC Furosemide (Lasix) 80 mg 1X ONCE IVP ; Start 05/25/20 at 11:00; Stop 05/25/20 at 11:01; Status Cancel Ondansetron HCl (Zofran) 4 mg PRN Q6HRS PRN IVP NAUSEA/VOMITING Last administered on 05/25/20at 13:04; Start 05/25/20 at 13:00 Thiamine HCl 100 mg/Dextrose 51 ml @ 102 mls/hr 1X ONCE IV Last administered on 05/25/20at 15:28; Start 05/25/20 at 15:00; Stop 05/25/20 at 15:29; Status DC Thiamine HCl 100 mg/Folic Acid 1 mg/Sodium Chloride 1,001.2 ml @ 100 mls/ hr DAILY IV Last administered on 05/26/20at 08:46; Start 05/26/20 at 09:00; Stop 05/30/20 at 19:01 Multivitamins (Thera M Plus) 1 tab DAILY PO ; Start 05/25/20 at 14:00 Folic Acid (Folic Acid) 1 mg DAILY PO ; Start 05/30/20 at 09:00 Lorazepam (Ativan) 4 mg PRN Q1HR PRN PO For CIWA 8-14; Start 05/25/20 at 13:45 Lorazepam (Ativan) 8 mg PRN Q1HR PRN PO For CIWA 15 or greater; Start 05/25/20 at 13:45 Lorazepam (Ativan Inj) 2 mg PRN Q1HR PRN IV For CIWA 8-14; Start 05/25/20 at 13:45 Lorazepam (Ativan Inj) 4 mg PRN Q1HR PRN IV For CIWA 15 or greater; Start 05/25/20 at 13:45 Lorazepam (Ativan Inj) 2 mg PRN Q15MIN PRN IV SEE COMMENTS; Start 05/25/20 at 13:45 Lorazepam (Ativan Inj) 4 mg PRN Q15MIN PRN IV SEE COMMENTS; Start 05/25/20 at 13:45 Fentanyl Citrate (Fentanyl 2ml Vial) 50 mcg PRN Q2HR PRN IVP PAIN Last administered on 05/25/20at 15:28; Start 05/25/20 at 15:30 Nicotine (Nicoderm Cq 21mg) 1 patch DAILY TD ; Start 05/25/20 at 17:00; Stop 05/25/20 at 17:57; Status DC Adenosine (Adenocard) 12 mg STK-MED ONCE IV ; Start 05/23/20 at 12:00; Stop 05/25/20 at 15:51; Status DC Magnesium Sulfate/ Dextrose (Magnesium Sulfate PREMIX 1GM) 1 gm STK-MED ONCE IV ; Start 05/23/20 at 12:00; Stop 05/25/20 at 15:51; Status DC Epinephrine HCl (EPINEPHrine SYRINGE) 1 mg STK-MED ONCE .ROUTE ; Start 05/23/20 at 12:00; Stop 05/25/20 at 15:52; Status DC Acetaminophen (Tylenol) 650 mg PRN Q6HRS PRN PO MILD PAIN / TEMP > 100.3'F; Start 05/25/20 at 16:30 Nicotine (Nicoderm Cq 21mg) 1 patch DAILY TD Last administered on 05/26/20at 08:51; Start 05/26/20 at 08:00 Vitals/I & O Vital Sign - Last 24 Hours 05/25/20 05/25/20 05/25/20 05/25/20 11:06 11:51 12:19 12:21 Temp 98.9 98.9 Pulse 71 71 Resp 20 20 B/P (MAP) 90/55 (67) 93/60 (71) Pulse Ox 96 100 97 O2 Delivery Ventilator Mechanical Ventilator Ventilator 05/25/20 05/25/20 05/25/20 05/25/20 13:07 15:14 15:28 15:58 Pulse 71 71 Resp 20 20 16 16 B/P (MAP) 102/64 (77) 102/68 (79) Pulse Ox 92 95 95 96 O2 Delivery Ventilator Ventilator Nasal Cannula Nasal Cannula O2 Flow Rate 3.0 05/25/20 05/25/20 05/25/20 05/25/20 16:01 16:05 17:29 18:16 Temp 97.5 97.5 Pulse 78 80 83 Resp 20 16 16 B/P (MAP) 98/65 (76) 98/65 (76) 110/67 (81) Pulse Ox 96 90 95 O2 Delivery Nasal Cannula Nasal Cannula Nasal Cannula Nasal Cannula O2 Flow Rate 3.0 3.0 3.0 3.0 05/25/20 05/25/20 05/25/20 05/25/20 19:12 19:37 20:06 21:12 Temp 97.7 97.7 Pulse 82 83 81 Resp 18 18 16 B/P (MAP) 123/75 (91) 107/71 (83) 126/73 (90) Pulse Ox 94 93 94 O2 Delivery Nasal Cannula Nasal Cannula Nasal Cannula Nasal Cannula O2 Flow Rate 3.0 3.0 3.0 3.0 05/25/20 05/25/20 05/26/20 05/26/20 22:13 23:07 00:16 00:17 Temp 97.8 97.8 Pulse 85 83 81 Resp 16 16 18 B/P (MAP) 131/78 (95) 122/73 (89) 134/78 (96) Pulse Ox 94 93 95 O2 Delivery Nasal Cannula Nasal Cannula Nasal Cannula Nasal Cannula O2 Flow Rate 3.0 3.0 3.0 3.0 05/26/20 05/26/20 05/26/20 05/26/20 01:00 02:03 03:00 04:04 Temp 97.9 97.9 Pulse 73 81 83 Resp 16 16 16 B/P (MAP) 137/76 (96) 138/82 (100) 142/84 (103) Pulse Ox 92 96 94 O2 Delivery Nasal Cannula Nasal Cannula Nasal Cannula Nasal Cannula O2 Flow Rate 3.0 3.0 3.0 3.0 05/26/20 05/26/20 05/26/20 05/26/20 04:10 05:11 06:08 07:28 Pulse 93 95 93 84 Resp 16 18 18 18 B/P (MAP) 148/80 (102) 139/82 (101) 153/95 (114) 149/79 (102) Pulse Ox 95 95 96 90 O2 Delivery Nasal Cannula Nasal Cannula Nasal Cannula Nasal Cannula O2 Flow Rate 3.0 3.0 3.0 3.0 05/26/20 05/26/20 05/26/20 05/26/20 08:00 08:40 08:48 09:27 Pulse 87 88 Resp 18 18 B/P (MAP) 148/73 (98) 148/73 155/80 (105) Pulse Ox 93 94 O2 Delivery Nasal Cannula Nasal Cannula Nasal Cannula O2 Flow Rate 5.0 3.0 3.0 05/26/20 05/26/20 10:00 10:16 Pulse 83 85 Resp 18 18 B/P (MAP) 133/75 (94) 133/78 (96) Pulse Ox 93 94 O2 Delivery Nasal Cannula Nasal Cannula O2 Flow Rate 5.0 3.0 Intake and Output 05/25/20 05/25/20 05/26/20 14:59 22:59 06:59 Intake Total 900 ml Output Total 245 ml 385 ml 1595 ml Balance -245 ml -385 ml -695 ml Justicifation of Admission Dx: Justifications for Admission: Justification of Admission Dx: Yes FRIEDA TEAGUE MD May 26, 2020 10:22
[2020-05-26 12:36] LABS: BASO % 0 % (0-3); EOS % 0 % (0-3); HEMATOCRIT 42.2 % (39.0-53.0); LYMPH % 5 % (24-48); MEAN CORPUSCULAR HEMOGLOBIN 29 pg (25-35); MEAN CORPUSCULAR HGB CONC 33 g/dL (31-37); MEAN CORPUSCULAR VOLUME 88 fL (79-100); MONO # 1.9 x10^3/uL (0.0-1.1); MONO % 10 % (0-9); NEUT # 16.7 x10^3/uL (1.8-7.7); NEUT % 85 % (31-73); PLATELET COUNT 188 x10^3/uL (140-400); RED CELL DISTRIBUTION WIDTH 13.5 % (11.5-14.5); WHITE BLOOD COUNT 19.6 x10^3/uL (4.0-11.0)
[2020-05-26] MEDS ORDERED: PIP/TAZO PER PHARMACY MC PRN (14:30)
--- NOTE | 2020-05-26 14:37 | PDOC ---
Infectious Disease Note Vital Signs: Vital Signs Vital Signs Date Time Temp Pulse Resp B/P (MAP) Pulse Ox O2 Delivery O2 Flow Rate FiO2 05/26/20 13:04 84 18 152/75 (100) 93 Nasal Cannula 3.0 05/26/20 03:00 97.9 97.9 Physical Exam: PHYSICAL EXAM SITTING IN BEDSIDE CHAIR Medications: Inpatient Meds: Medications reviewed. Labs: Lab Laboratory Tests Test 05/26/20 12:20 White Blood Count 19.6 x10^3/uL (4.0-11.0) Red Blood Count 4.80 x10^6/uL (4.30-5.70) Hemoglobin 14.0 g/dL (13.0-17.5) Hematocrit 42.2 % (39.0-53.0) Mean Corpuscular Volume 88 fL (79-100) Mean Corpuscular Hemoglobin 29 pg (25-35) Mean Corpuscular Hemoglobin Concent 33 g/dL (31-37) Red Cell Distribution Width 13.5 % (11.5-14.5) Platelet Count 188 x10^3/uL (140-400) Neutrophils (%) (Auto) 85 % (31-73) Lymphocytes (%) (Auto) 5 % (24-48) Monocytes (%) (Auto) 10 % (0-9) Eosinophils (%) (Auto) 0 % (0-3) Basophils (%) (Auto) 0 % (0-3) Neutrophils # (Auto) 16.7 x10^3/uL (1.8-7.7) Lymphocytes # (Auto) 1.0 x10^3/uL (1.0-4.8) Monocytes # (Auto) 1.9 x10^3/uL (0.0-1.1) Eosinophils # (Auto) 0.0 x10^3/uL (0.0-0.7) Basophils # (Auto) 0.0 x10^3/uL (0.0-0.2) Plan: Plan of Care Pt seen and examined ID consult dictated thank you [id number] TRU BROWN MD May 26, 2020 14:37
--- NOTE | 2020-05-26 15:55 | CARD ---
MR#: [id number] Date of Study: 05/25/2020 Ordering Physician: KARLIE CADENA, Referring Physician: KARLIE CADENA, Tech: Candace An Shannan, [facility] APPROVED REPORT EXAM: Two-dimensional and M-mode echocardiogram with Doppler and color Doppler. Other Information Quality : AverageHR: 77bpm INDICATION STEMI, Cardiac Arrest RISK FACTORS Smoking 2D DIMENSIONS Left Atrium(2D)2.3 (1.6-4.0cm)IVSd1.0 (0.7-1.1cm) Aortic Root(2D)2.7 (2.0-3.7cm)LVDd4.5 (3.9-5.9cm) LVOT Diameter2.1 (1.8-2.4cm)PWd1.1 (0.7-1.1cm) LVDs3.3 (2.5-4.0cm)FS (%) 25.8 % SV46.3 mlLVEF(%)50.9 (>50%) Aortic Valve AoV Peak Maynor.137.3cm/sAoV VTI24.0cm AO Peak GR.7.5mmHgLVOT VTI 16.46cm AO Mean GR.4mmHg Mitral Valve MV E Yesyczfs40.4cm/sMV DECEL [id number] MV A Hwijtvgs90.6cm/sE/A Ratio0.8 TDI Lateral E' P. V10.23cm/sMedial E' P. V5.79cm/s E/Lateral E'5.3E/Medial E'9.4 Tricuspid Valve TR P. [id number]/sRAP [id number] TR Peak Gr.52mmHg LEFT VENTRICLE The left ventricle is normal size. There is mild concentric left ventricular hypertrophy. Posterobasa l wall hypokinesis. The Ejection Fraction is 50-55%. Transmitral Doppler flow pattern is Grade I-abno rmal relaxation pattern. RIGHT VENTRICLE The right ventricle is normal size. There is normal right ventricular wall thickness. The right ventr icular systolic function is normal. ATRIA The left atrium size is normal. The right atrium size is normal. The interatrial septum is intact wit h no evidence for an atrial septal defect or patent foramen ovale as noted on 2-D or Doppler imaging. AORTIC VALVE The aortic valve is normal in structure and function. Doppler and Color Flow revealed no significant aortic regurgitation. There is no significant aortic valvular stenosis. Calculated aortic valve area is 2.34 cm2 with maximum pressure gradient of 7 mmHg and mean pressure gradient of 4 mmHg. MITRAL VALVE The mitral valve is normal in structure and function. There is no evidence of mitral valve prolapse. There is no mitral valve stenosis. Doppler and Color-flow revealed trace mitral regurgitation. TRICUSPID VALVE The tricuspid valve is normal in structure and function. Doppler and Color Flow revealed trace tricus pid regurgitation with an estimated PAP of 67 mmHg. There is moderate pulmonary hypertension. There i s no tricuspid valve stenosis. PULMONIC VALVE The pulmonic valve is not well visualized. Doppler and Color Flow revealed no pulmonic valvular regur gitation. GREAT VESSELS The aortic root is normal in size. The IVC is dilated and collapses <50% with inspiration. PERICARDIAL EFFUSION There is no evidence of significant pericardial effusion. Critical Notification Critical Value: No <Conclusion> Posterobasal wall hypokinesis. The Ejection Fraction is 50-55%. Transmitral Doppler flow pattern is Grade I-abnormal relaxation pattern. Trace mitral regurgitation. Trace tricuspid regurgitation with an estimated PAP of 67 mmHg. There is no evidence of significant pericardial effusion. Signed by : Jovany Fajardo, Electronically Approved : 05/26/2020 15:54:30
[2020-05-26] MEDS: AMINO AC 3%/ELECTROLYTE/GLYCER 1,000 ML IV SCH (16:24)
[2020-05-26] MEDS: PIPERACILLIN/TAZOBACTAM 3.375 GM in IV NORMAL SALINE 50ML 50 ML IV SCH (17:10)
--- NOTE | 2020-05-26 17:21 | PDOC ---
PROGRESS NOTES Date of Service: DATE: 05/26/20 TIME: 17:21 Subjective Subjective Denied any chest pain Objective Objective Vital Signs Date Time Temp Pulse Resp B/P (MAP) Pulse Ox O2 Delivery O2 Flow Rate FiO2 05/26/20 17:15 97 18 152/75 (100) 94 Nasal Cannula 3.0 05/26/20 03:00 97.9 97.9 Intake and Output 05/26/20 07:00 Intake Total 900 ml Output Total 2225 ml Balance -1325 ml Intake Oral 0 ml IV Total 900 ml Output Urine Total 2225 ml Physical Exam Abdomen: Normal bowel sounds, Soft, No tenderness, No hepatosplenomegaly Heart: Regular rate, Normal S1, Normal S2 Extremities: No cyanosis, No edema General: Alert, Oriented X3, Cooperative, No acute distress, Other (RIGHT CONJUNCTIVITIS) Lungs: Clear to auscultation Skin: Other (patches of alopecia on scalp) Assessment Assessment 1. Acute inferoposterior wall VA s/p PCI/JANESSA to RCA, stable and chest pain free. Tele did not show any significant arrhythmias. Continue DAPT. Plan for transfer to [facility] and ambulate as tolerated. Continue current prevention measures 2. Ischemic VT/VF/cardiac arrest: none further since PCI. Continue to monitor 3. Acute resp failure s/p extubation, doing well. Swallow study today. Pulm following 4. Hypotension, off pressors 5. Acute diastolic HF, better compensated. 2D echo showed EF 50-55%. 6. Tobacco abuse: advised on complete cessation Plan Plan of Care Problems Medical Problems: (1) Cardiac arrest Status: Acute Comment Review of Relevant I have reviewed the following items gill (where applicable) has been applied. Labs Laboratory Tests Test 05/26/20 12:20 05/26/20 16:20 White Blood Count 19.6 x10^3/uL (4.0-11.0) Red Blood Count 4.80 x10^6/uL (4.30-5.70) Hemoglobin 14.0 g/dL (13.0-17.5) Hematocrit 42.2 % (39.0-53.0) Mean Corpuscular Volume 88 fL (79-100) Mean Corpuscular Hemoglobin 29 pg (25-35) Mean Corpuscular Hemoglobin Concent 33 g/dL (31-37) Red Cell Distribution Width 13.5 % (11.5-14.5) Platelet Count 188 x10^3/uL (140-400) Neutrophils (%) (Auto) 85 % (31-73) Lymphocytes (%) (Auto) 5 % (24-48) Monocytes (%) (Auto) 10 % (0-9) Eosinophils (%) (Auto) 0 % (0-3) Basophils (%) (Auto) 0 % (0-3) Neutrophils # (Auto) 16.7 x10^3/uL (1.8-7.7) Lymphocytes # (Auto) 1.0 x10^3/uL (1.0-4.8) Monocytes # (Auto) 1.9 x10^3/uL (0.0-1.1) Eosinophils # (Auto) 0.0 x10^3/uL (0.0-0.7) Basophils # (Auto) 0.0 x10^3/uL (0.0-0.2) Lactic Acid Level 2.2 mmol/L (0.4-2.0) Microbiology 05/25/20 Urine Culture - Final, Complete 05/23/20 Blood Culture - Preliminary, Resulted NO GROWTH AFTER 2 DAYS Medications Current Medications Amino Acids/ Glycerin/ Electrolytes 1,000 ml @ 80 mls/hr [id number] IV Last administered on 05/26/20at 16:24; Start 05/26/20 at 14:30 Erythromycin (Romycin) 0.25 inch Q6HRS OU ; Start 05/26/20 at 18:00 Folic Acid (Folic Acid) 1 mg DAILY PO ; Start 05/30/20 at 09:00 Nicotine (Nicoderm Cq 21mg) 1 patch DAILY TD Last administered on 05/26/20at 08:51; Start 05/26/20 at 08:00 Piperacillin Sod/ Tazobactam Sod (Zosyn Per Pharmacy) 1 each PRN DAILY PRN MC SEE COMMENTS; Start 05/26/20 at 14:30 Piperacillin Sod/ Tazobactam Sod 3.375 gm/Sodium Chloride 50 ml @ 100 mls/hr Q6HRS IV Last administered on 05/26/20at 17:10; Start 05/26/20 at 18:00 Thiamine HCl 100 mg/Folic Acid 1 mg/Sodium Chloride 1,001.2 ml @ 100 mls/ hr DAILY IV Last administered on 05/26/20at 08:46; Start 05/26/20 at 09:00; Stop 05/30/20 at 19:01 Vitals/I & O Vital Sign - Last 24 Hours 05/25/20 05/25/20 05/25/20 05/25/20 17:29 18:16 19:12 19:37 Temp 97.7 97.7 Pulse 80 83 82 Resp 16 16 18 B/P (MAP) 98/65 (76) 110/67 (81) 123/75 (91) Pulse Ox 90 95 94 O2 Delivery Nasal Cannula Nasal Cannula Nasal Cannula Nasal Cannula O2 Flow Rate 3.0 3.0 3.0 3.0 05/25/20 05/25/20 05/25/20 05/25/20 20:06 21:12 22:13 23:07 Temp 97.8 97.8 Pulse 83 81 85 83 Resp 18 16 16 16 B/P (MAP) 107/71 (83) 126/73 (90) 131/78 (95) 122/73 (89) Pulse Ox 93 94 94 93 O2 Delivery Nasal Cannula Nasal Cannula Nasal Cannula Nasal Cannula O2 Flow Rate 3.0 3.0 3.0 3.0 05/26/20 05/26/20 05/26/20 05/26/20 00:16 00:17 01:00 02:03 Pulse 81 73 81 Resp 18 16 16 B/P (MAP) 134/78 (96) 137/76 (96) 138/82 (100) Pulse Ox 95 92 96 O2 Delivery Nasal Cannula Nasal Cannula Nasal Cannula Nasal Cannula O2 Flow Rate 3.0 3.0 3.0 3.0 05/26/20 05/26/20 05/26/20 05/26/20 03:00 04:04 04:10 05:11 Temp 97.9 97.9 Pulse 83 93 95 Resp 16 16 18 B/P (MAP) 142/84 (103) 148/80 (102) 139/82 (101) Pulse Ox 94 95 95 O2 Delivery Nasal Cannula Nasal Cannula Nasal Cannula Nasal Cannula O2 Flow Rate 3.0 3.0 3.0 3.0 05/26/20 05/26/20 05/26/20 05/26/20 06:08 07:28 08:00 08:40 Pulse 93 84 87 Resp 18 18 18 B/P (MAP) 153/95 (114) 149/79 (102) 148/73 (98) Pulse Ox 96 90 93 O2 Delivery Nasal Cannula Nasal Cannula Nasal Cannula Nasal Cannula O2 Flow Rate 3.0 3.0 5.0 3.0 05/26/20 05/26/20 05/26/20 05/26/20 08:48 09:27 10:00 10:16 Pulse 88 83 85 Resp 18 18 18 B/P (MAP) 148/73 155/80 (105) 133/75 (94) 133/78 (96) Pulse Ox 94 93 94 O2 Delivery Nasal Cannula Nasal Cannula Nasal Cannula O2 Flow Rate 3.0 5.0 3.0 05/26/20 05/26/20 05/26/20 05/26/20 11:12 12:22 13:04 14:00 Pulse 87 84 84 90 Resp 18 18 18 18 B/P (MAP) 133/75 (94) 152/75 (100) 152/75 (100) Pulse Ox 95 93 93 93 O2 Delivery Nasal Cannula Nasal Cannula Nasal Cannula Nasal Cannula O2 Flow Rate 3.0 3.0 3.0 3.0 05/26/20 05/26/20 05/26/20 15:19 16:09 17:15 Pulse 87 85 97 Resp 18 18 18 B/P (MAP) 152/75 (100) Pulse Ox 95 94 94 O2 Delivery Nasal Cannula Nasal Cannula Nasal Cannula O2 Flow Rate 3.0 3.0 3.0 Intake and Output 05/25/20 05/25/20 05/26/20 15:00 23:00 07:00 Intake Total 900 ml Output Total 245 ml 385 ml 1595 ml Balance -245 ml -385 ml -695 ml FREEMAN RAY MD May 26, 2020 17:21
[2020-05-26] MEDS: ERYTHROMYCIN 0.5% OPHTH OINTMENT 1GM TUBE. OU SCH (17:27)
--- NOTE | 2020-05-26 20:22 | RAD ---
Exam: MRI brain without contrast INDICATION: Post code TECHNIQUE: Multiplanar multisequence MRI of the brain was obtained without the administration of IV c ontrast. Comparisons: None FINDINGS: No abnormal area of increased signal on DWI sequence to suggest restricted diffusion. Visualized portions vascular flow voids are unremarkable. Scattered areas of T2/FLAIR represent signal the periventricular white matter. No focal parenchymal lesion or hemorrhage is identified. No midline shift or sulcal effacement. Globes and intraorbital contents are normal. Craniocervical junction is normal. Midline structures are within normal limits. Bone marrow signal is normal. IMPRESSION: 1. No acute no evidence for acute ischemia. 2. Mild areas of T2/FLAIR hyperintense signal in the periventricular white matter favored represent chronic small vessel ischemic change Electronically signed by: Rishi Mccray MD (05/26/2020 8:19 PM) JALIL
--- NOTE | 2020-05-26 20:41 | RAD ---
Exam: Chest 2 views INDICATION: Hypoxia TECHNIQUE: Frontal and lateral views the chest Comparisons: None FINDINGS: The cardiomediastinal silhouette and pulmonary vessels are within normal limits. Patchy airspace disease at lung bases bilaterally. Small pleural effusion. IMPRESSION: Patchy bibasilar airspace disease greater on the right base, may be infectious or inflammatory in marika ology. Electronically signed by: Rishi Mccray MD (05/26/2020 8:38 PM) RAMON
[2020-05-26] MEDS: ATORVASTATIN CALCIUM 20 MG TABLET PO SCH (20:45)
--- NOTE | 2020-05-26 21:32 | CONS ---
DATE OF CONSULTATION: 05/26/2020 REFERRING PHYSICIAN: Dr. Zapata. REASON FOR CONSULTATION: Leukocytosis. HISTORY OF PRESENT ILLNESS: A 69-year-old male who presented to the ER after suffering cardiac arrest at home. Apparently, he was not feeling well prior to admission with some nausea and diaphoresis, he then collapsed. CPR was initiated. He was defibrillated and coded for 10 minutes prior to arrival to the ED. He was emergently taken to cardiac catheterization suite. He underwent PCI to the right RCA. Chest x-ray revealed increased interstitial lung markings compatible with pulmonary venous congestion. White count was 20,000. Lactate was 8.3. Troponin was 0.066. BNP of 199. Lactate later on came down to 1.9. COVID 19 negative.White count is elevated at 19.6. Procalcitonin 1.87. He is currently on zosyn. Today, the patient states he feels better. Post-procedure, he was intubated. He got extubated on 03/24. Currently, he arden 3 liters O2 by nasal cannula. Denies any fevers, chills, nausea, or vomiting. Has cough, brings up yellowish green sputum. Denies any headache, sore throat, or symptoms. PAST MEDICAL HISTORY: Anxiety, depression, smoking history, psychiatric disorder, history of alcohol abuse. SOCIAL HISTORY: Smokes on daily basis. Alcohol, per quit 3 years ago. No illicit drug use. REVIEW OF SYSTEMS: Limited, but negative except for above in HPI. CURRENT MEDICATIONS: Antibiotics none. OTHER MEDICATIONS: Reviewed in medication list. PHYSICAL EXAMINATION: VITAL SIGNS: Temperature 97.9, pulse 84, respiratory rate 18, blood pressure 152/75, oxygen saturation 93% on 3 liters O2 by nasal cannula. GENERAL: Alert, oriented x 3, male, sitting upright in chair, in no acute distress. HEENT: Normocephalic, atraumatic, anicteric. No thrush. Subconjunctival hemorrhage, more pronounced in the right eye. NECK: Supple, no JVD. LUNGS: Clear bilaterally. HEART: S1, S2. ABDOMEN: Soft, nontender, nondistended. EXTREMITIES: No edema, no cyanosis. DERMATOLOGIC: Warm, dry. No generalized rash. NEUROLOGIC: Alert, awake. Moves all 4 extremities. Still weak. PSYCHIATRIC: Calm and cooperative. PIV looks okay. LABORATORY DATA: WBC 19.6, hemoglobin 14.0, hematocrit 42.2, platelets of 188. Sodium 136, potassium 3.8, chloride 102, bicarbonate 27, BUN 11, creatinine 0.8, glucose 104, calcium 7.5, lactate was 8.3, on the 25th was 1.1. C-reactive protein 100.2, albumin 1.9, procalcitonin 1.87. Free T4 is 1.26. UDS positive for methamphetamine, benzodiazepine, cannabinoids. COVID-19 negative. UA; 1-4 wbc's, leukocyte esterase trace. IMAGING: Chest x-ray shows unchanged extensive diffuse reticulonodular densities throughout the both lungs. No pneumothorax or increasing effusion. IMPRESSION: 1. Jjc-ju-immxqxpu cardiopulmonary arrest secondary to inferior wall myocardial infarction. 2. Status post emergent cardiac catheterization with percutaneous coronary intervention to the right coronary artery. Acute myocardial infarction. 3. Acute hypoxic respiratory failure , now extubated, possible aspiration 4. Leukocytosis multifactorial including reactive 5. Dysphagia. 6. Lactic acidosis related to [id number]-yhzkdkhg cardiopulmonary arrest, now resolved. 7. History of alcoholism.Urine drug screen positive. 8. History of smoking. RECOMMENDATIONS: 1. Continue zosyn for now 2. The patient is awaiting swallow evaluation. 3. Maintain aspiration precaution. 4. Follow up labs and cultures. 5. Send sputum for cultures. 6. PT and OT as tolerated. Discussed with at bedside. Discussed with RN. Thank you for allowing me to participate in this patient's care. If you have any questions, do not hesitate to contact me. TRU BROWN MD DR: SOFYA/moi JOB#: [id number] / [id number] YAKOV
[2020-05-27] VITALS (7 sets, daily range): BP systolic 126–170; BP diastolic 73–92
[2020-05-27] MEDS: PIPERACILLIN/TAZOBACTAM 3.375 GM in IV NORMAL SALINE 50ML 50 ML IV SCH ×4 (00:32→18:17)
[2020-05-27] MEDS: ERYTHROMYCIN 0.5% OPHTH OINTMENT 1GM TUBE. OU SCH ×4 (00:32→18:16)
[2020-05-27] MEDS: AMINO AC 3%/ELECTROLYTE/GLYCER 1,000 ML IV SCH ×2 (05:23→15:30)
[2020-05-27] MEDS: FUROSEMIDE 40 MG/4 ML VIAL. IVP SCH (08:17)
[2020-05-27] MEDS: NICOTINE 21MG PATCH. TD SCH ×2 (08:19→09:00)
--- NOTE | 2020-05-27 08:39 | PDOC ---
PULMONARY PROGRESS NOTES DATE: 05/27/20 TIME: 08:38 Subjective extubated 05/25, on 02 5 lpm denies sob w activity, has cough Vitals Vital Signs Date Time Temp Pulse Resp B/P (MAP) Pulse Ox O2 Delivery O2 Flow Rate FiO2 05/27/20 07:00 97.7 95 20 130/73 (92) 92 Nasal Cannula 5.0 97.7 ROS: No Nausea, No Chest Pain General: Alert HEENT: Other (nc at perrl ) Lungs: Crackles Cardiovascular: S1, S2 Abdomen: Soft, Non-tender Neuro Exam: Alert Skin: Warm Labs Laboratory Tests Test 05/25/20 12:13 05/26/20 12:20 05/26/20 16:20 05/26/20 20:45 O2 Saturation 97 % (92-99) Arterial Blood pH 7.42 (7.35-7.45) Arterial Blood pCO2 at Patient Temp 35 mmHg (35-46) Arterial Blood pO2 at Patient Temp 99 mmHg (65-108) Arterial Blood HCO3 22 mmol/L (21-28) Arterial Blood Base Excess -2 mmol/L (-3-3) FiO2 40/cpap 5-5 White Blood Count 19.6 x10^3/uL (4.0-11.0) Red Blood Count 4.80 x10^6/uL (4.30-5.70) Hemoglobin 14.0 g/dL (13.0-17.5) Hematocrit 42.2 % (39.0-53.0) Mean Corpuscular Volume 88 fL (79-100) Mean Corpuscular Hemoglobin 29 pg (25-35) Mean Corpuscular Hemoglobin Concent 33 g/dL (31-37) Red Cell Distribution Width 13.5 % (11.5-14.5) Platelet Count 188 x10^3/uL (140-400) Neutrophils (%) (Auto) 85 % (31-73) Lymphocytes (%) (Auto) 5 % (24-48) Monocytes (%) (Auto) 10 % (0-9) Eosinophils (%) (Auto) 0 % (0-3) Basophils (%) (Auto) 0 % (0-3) Neutrophils # (Auto) 16.7 x10^3/uL (1.8-7.7) Lymphocytes # (Auto) 1.0 x10^3/uL (1.0-4.8) Monocytes # (Auto) 1.9 x10^3/uL (0.0-1.1) Eosinophils # (Auto) 0.0 x10^3/uL (0.0-0.7) Basophils # (Auto) 0.0 x10^3/uL (0.0-0.2) Lactic Acid Level 2.2 mmol/L (0.4-2.0) 1.7 mmol/L (0.4-2.0) Laboratory Tests Test 05/26/20 12:20 05/26/20 16:20 05/26/20 20:45 White Blood Count 19.6 x10^3/uL (4.0-11.0) Red Blood Count 4.80 x10^6/uL (4.30-5.70) Hemoglobin 14.0 g/dL (13.0-17.5) Hematocrit 42.2 % (39.0-53.0) Mean Corpuscular Volume 88 fL (79-100) Mean Corpuscular Hemoglobin 29 pg (25-35) Mean Corpuscular Hemoglobin Concent 33 g/dL (31-37) Red Cell Distribution Width 13.5 % (11.5-14.5) Platelet Count 188 x10^3/uL (140-400) Neutrophils (%) (Auto) 85 % (31-73) Lymphocytes (%) (Auto) 5 % (24-48) Monocytes (%) (Auto) 10 % (0-9) Eosinophils (%) (Auto) 0 % (0-3) Basophils (%) (Auto) 0 % (0-3) Neutrophils # (Auto) 16.7 x10^3/uL (1.8-7.7) Lymphocytes # (Auto) 1.0 x10^3/uL (1.0-4.8) Monocytes # (Auto) 1.9 x10^3/uL (0.0-1.1) Eosinophils # (Auto) 0.0 x10^3/uL (0.0-0.7) Basophils # (Auto) 0.0 x10^3/uL (0.0-0.2) Lactic Acid Level 2.2 mmol/L (0.4-2.0) 1.7 mmol/L (0.4-2.0) Comments CXR Impression: Unchanged support device positioning and diffuse reticulonodular densities throughout both lungs. Impression . IMPRESSION: 1. Csh-zv-xzisfjqr cardiopulmonary arrest secondary to inferior wall PA. 2. Status post emergent cardiac catheterization with PCI to the RCA. 3. ST segment elevation myocardial infarction. 4. History of alcoholism. 5. Leukocytosis, suspect reactive. ? aspiration 6. Lactic acidosis related to iqv-iq-tohoaheu cardiopulmonary arrest. Plan . PLAN: titrate fio2 to keep sat 90% IS to use multiple times an hour Follow cardiology recs - S/p PCI to RCA --A/C per cardiology Follow ID recs CIWA PT/OT/ST increase activity DVT/GI PPX D/W RN and pt HOMERO VICTOR MD May 27, 2020 08:39
--- NOTE | 2020-05-27 08:54 | PDOC ---
Infectious Disease Note Subjective: Subjective Patient wants to eat food No other complaints Vital Signs: Vital Signs Vital Signs Date Time Temp Pulse Resp B/P (MAP) Pulse Ox O2 Delivery O2 Flow Rate FiO2 05/27/20 07:00 97.7 95 20 130/73 (92) 92 Nasal Cannula 5.0 97.7 Physical Exam: PHYSICAL EXAM GENERAL: Alert, oriented x 3, male, in no acute distress. HEENT: Normocephalic, atraumatic, anicteric. No thrush. Subconjunctival hemorrhage, more pronounced in the right eye. NECK: Supple, no JVD. LUNGS: Clear bilaterally. HEART: S1, S2. ABDOMEN: Soft, nontender, nondistended. EXTREMITIES: No edema, no cyanosis. DERMATOLOGIC: Warm, dry. No generalized rash. NEUROLOGIC: Alert, awake. Moves all 4 extremities. Still weak. PSYCHIATRIC: Calm and cooperative. PIV looks okay. Medications: Inpatient Meds: Medications reviewed. Labs: Lab Laboratory Tests Test 05/26/20 12:20 05/26/20 16:20 05/26/20 20:45 White Blood Count 19.6 x10^3/uL (4.0-11.0) Red Blood Count 4.80 x10^6/uL (4.30-5.70) Hemoglobin 14.0 g/dL (13.0-17.5) Hematocrit 42.2 % (39.0-53.0) Mean Corpuscular Volume 88 fL (79-100) Mean Corpuscular Hemoglobin 29 pg (25-35) Mean Corpuscular Hemoglobin Concent 33 g/dL (31-37) Red Cell Distribution Width 13.5 % (11.5-14.5) Platelet Count 188 x10^3/uL (140-400) Neutrophils (%) (Auto) 85 % (31-73) Lymphocytes (%) (Auto) 5 % (24-48) Monocytes (%) (Auto) 10 % (0-9) Eosinophils (%) (Auto) 0 % (0-3) Basophils (%) (Auto) 0 % (0-3) Neutrophils # (Auto) 16.7 x10^3/uL (1.8-7.7) Lymphocytes # (Auto) 1.0 x10^3/uL (1.0-4.8) Monocytes # (Auto) 1.9 x10^3/uL (0.0-1.1) Eosinophils # (Auto) 0.0 x10^3/uL (0.0-0.7) Basophils # (Auto) 0.0 x10^3/uL (0.0-0.2) Lactic Acid Level 2.2 mmol/L (0.4-2.0) 1.7 mmol/L (0.4-2.0) Objective: Assessment: Leucocytosis multifactorial including reactive Aspiration with chronic bronchitis Sfa-wl-vvdhzaaa cardiopulmonary arrest secondary to inferior wall myocardial infarction. Status post emergent cardiac catheterization with percutaneous coronary intervention to the right coronary artery. Acute myocardial infarction. Acute hypoxic respiratory failure , now extubated, Leukocytosis Dysphagia. Lactic acidosis related to ehu-mk-mrqfoqrj cardiopulmonary arrest, now resolved. History of alcoholism.Urine drug screen positive. Tobaccoism Plan: Plan of Care 1. Continue zosyn for now 2. The patient is awaiting swallow evaluation. 3. Maintain aspiration precaution. 4. Follow up labs and cultures. 5. PT and OT as tolerated. Discussed with RN. TRU BROWN MD May 27, 2020 08:54
[2020-05-27] MEDS: METOPROLOL TART IMMED RELEASE 25 MG TABLET. PO SCH ×2 (09:00→21:31)
[2020-05-27] MEDS: MULTIVITAMIN with MINERAL TABLET. PO SCH (09:00)
--- NOTE | 2020-05-27 09:35 | PDOC ---
[facility] PROGRESS NOTE Date of Service DOS: DATE: 05/27/20 TIME: 09:32 Chief Complaint Chief Complaint ASSESSMENT: Cardiac arrest acute respiratory failure status post intubation and extubated on 05/25/2020 Acute OR with severe single vessel coronary artery disease involving the right coronary artery and post-PCI with drug-eluting stent placement to the right coronary artery by Dr. Fajardo on 05/23/2020 3. Normal ef 55%. 4. ST-elevation myocardial infarction. 5. Tobacco abuse disorder. 6. Ischemic ventricular tachycardia. 7. LEUKOCYTOSIS without fever 8. 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 severe protein-caloric malnutrition Aspiration pneumonia with chronic bronchitis, possible gram-negative and anaerobic organisms PLAN: Continue pulmonary toilet Continue empiric IV antibiotics Pending speech evaluation Aspirin 325 mg daily, Plavix 75 mg daily. off pressors and vent. Cardiology consult and Pulmonary consult. GI prophylaxis. 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 This is a supplement to the DATA for admission. Estimated length of stay greater than 3 days due to cardiac arrest and acute STEMI. PROGNOSIS: Guarded given OUT OF HOSPITAL ARREST . History of Present Illness History of Present Illness 05/27/2020 No acute events overnight. Patient is afebrile. Seen and examined bedside. Saturating 92% on 5 L nasal cannula. No concerns from nursing. Patient's chart, labs, images were reviewed and discussed with RN CHIEF COMPLAINT: Cardiac arrest. HISTORY OF PRESENT ILLNESS: This 69-year-old male apparently was at the local [employer] with his and began to feel nauseated and diaphoretic. They left the [employer] for home. He had a drink of soda to relieve his nausea, he continued to feel short of breath. Per family, his found him after she heard a loud thud and he had passed out. EMS was summoned and the patient was found to be in V-fib on their arrival. required defibrillation and he was coded for 10 minutes prior to arrival here. EKG showed right bundle branch block. Therefore, the plan was to rule out PE with CTA of the chest. He was intubated for respiratory failure. Another episode of V-tach fibrillation but successfully defibrillated here. Code STEMI was activated. He was taken emergently to the cardiac catheterization lab, at which time he was found to have critical right coronary artery stenosis, stent was placed. Chest x-ray shows diffuse interstitial opacities in both lungs. Denies depression or anxiety. He is a smoker less than pack a day. PAST MEDICAL HISTORY: Hyperlipidemia, hypertension. SOCIAL HISTORY: Smokes less than 1 pack per day. No alcohol or tobacco use per family pos THC USE, REMOTE METH ABUSE. REVIEW OF SYSTEMS: Denies much except he is hungry, wants to go home Vitals/I&O Vitals/I&O: Vital Signs Date Time Temp Pulse Resp B/P (MAP) Pulse Ox O2 Delivery O2 Flow Rate FiO2 05/27/20 07:00 97.7 95 20 130/73 (92) 92 Nasal Cannula 5.0 97.7 I & O 05/26/20 05/26/20 05/27/20 15:00 23:00 07:00 Intake Total 0 ml 1315 ml 0 ml Output Total 2300 ml 280 ml 900 ml Balance -2300 ml 1035 ml -900 ml Physical Exam Physical Exam: GENERAL: Alert, oriented x 3, male, in no acute distress. HEENT: Normocephalic, atraumatic, anicteric. No thrush. Subconjunctival hemorrhage, more pronounced in the right eye. NECK: Supple, no JVD. LUNGS: Clear bilaterally. HEART: S1, S2. ABDOMEN: Soft, nontender, nondistended. EXTREMITIES: No edema, no cyanosis. DERMATOLOGIC: Warm, dry. No generalized rash. NEUROLOGIC: Alert, awake. Moves all 4 extremities. Still weak. PSYCHIATRIC: Calm and cooperative. PIV looks okay. General: Alert, Oriented X3, Cooperative, No acute distress, Other (RIGHT CONJUNCTIVITIS) Heart: Regular rate, Normal S1, Normal S2 Lungs: Clear Abdomen: Normal bowel sounds, Soft, No tenderness, No hepatosplenomegaly Extremities: No cyanosis, No edema Skin: Other (patches of alopecia on scalp) Labs Labs: Laboratory Tests Test 05/26/20 12:20 05/26/20 16:20 05/26/20 20:45 White Blood Count 19.6 x10^3/uL (4.0-11.0) Red Blood Count 4.80 x10^6/uL (4.30-5.70) Hemoglobin 14.0 g/dL (13.0-17.5) Hematocrit 42.2 % (39.0-53.0) Mean Corpuscular Volume 88 fL (79-100) Mean Corpuscular Hemoglobin 29 pg (25-35) Mean Corpuscular Hemoglobin Concent 33 g/dL (31-37) Red Cell Distribution Width 13.5 % (11.5-14.5) Platelet Count 188 x10^3/uL (140-400) Neutrophils (%) (Auto) 85 % (31-73) Lymphocytes (%) (Auto) 5 % (24-48) Monocytes (%) (Auto) 10 % (0-9) Eosinophils (%) (Auto) 0 % (0-3) Basophils (%) (Auto) 0 % (0-3) Neutrophils # (Auto) 16.7 x10^3/uL (1.8-7.7) Lymphocytes # (Auto) 1.0 x10^3/uL (1.0-4.8) Monocytes # (Auto) 1.9 x10^3/uL (0.0-1.1) Eosinophils # (Auto) 0.0 x10^3/uL (0.0-0.7) Basophils # (Auto) 0.0 x10^3/uL (0.0-0.2) Lactic Acid Level 2.2 mmol/L (0.4-2.0) 1.7 mmol/L (0.4-2.0) Assessment and Plan Assessmemt and Plan Problems Medical Problems: (1) Cardiac arrest Status: Acute Comment Review of Relevant I have reviewed the following items gill (where applicable) has been applied. Medications: Current Medications Medications (Trade) Dose Ordered Sig/Karma Route PRN Reason Start Time Stop Time Status Last Admin Dose Admin Amino Acids/ Glycerin/ Electrolytes 1,000 ml @ 80 mls/hr [id number] IV 05/26/20 14:30 05/27/20 05:23 Erythromycin (Romycin) 0.25 inch Q6HRS OU 05/26/20 18:00 05/27/20 05:25 Piperacillin Sod/ Tazobactam Sod 3.375 gm/Sodium Chloride 50 ml @ 100 mls/hr Q6HRS IV 05/26/20 18:00 05/27/20 05:24 Justifications for Admission Other Justification ZACK SRIVASTAVA MD May 27, 2020 09:35
[2020-05-27] MEDS: ASPIRIN ENTERIC COATED 325 MG TABLET.DR. PO SCH (12:23)
[2020-05-27] MEDS: CLOPIDOGREL BISULFATE 75 MG TABLET PO SCH (12:23)
[2020-05-27] MEDS: THIAMINE INJ 100 MG, FOLIC ACID INJ 1 MG in IV NORMAL SALINE 1000ML BAG 1,000 ML IV SCH (12:24)
--- NOTE | 2020-05-27 12:43 | PDOC ---
PROGRESS NOTES Date of Service: DATE: 05/27/20 TIME: 12:41 Subjective Subjective Slightly confused but denied any chest pain. Objective Objective Vital Signs Date Time Temp Pulse Resp B/P (MAP) Pulse Ox O2 Delivery O2 Flow Rate FiO2 05/27/20 11:00 98.1 90 20 126/77 (93) 94 Nasal Cannula 3.0 98.1 Intake and Output 05/27/20 07:00 Intake Total 1315 ml Output Total 3480 ml Balance -2165 ml Intake Oral 0 ml IV Total 1315 ml Output Urine Total 3480 ml Physical Exam Abdomen: Normal bowel sounds, Soft, No tenderness, No hepatosplenomegaly Heart: Regular rate, Normal S1, Normal S2 Extremities: No cyanosis, No edema General: Alert, Oriented X3, Cooperative, No acute distress, Other (RIGHT CONJUNCTIVITIS) Lungs: Clear to auscultation Skin: Other (patches of alopecia on scalp) Assessment Assessment 1. Acute inferoposterior wall OH s/p PCI/JANESSA to RCA, stable and chest pain free. Tele did not show any significant arrhythmias. Continue DAPT. Patient failed swallow study yesterday -plan to repeat today and if he fails again, we will place Dobbhoff tube for administering medications including DAPT. Continue current prevention measures 2. Ischemic VT/VF/cardiac arrest: none further since PCI. Continue to monitor 3. Acute resp failure s/p extubation, doing well. Swallow study today. Pulm following 4. Hypotension, off pressors 5. Acute diastolic HF, better compensated. 2D echo showed EF 50-55%. 6. Tobacco abuse: advised on complete cessation Plan Plan of Care Problems Medical Problems: (1) Cardiac arrest Status: Acute Comment Review of Relevant I have reviewed the following items gill (where applicable) has been applied. Labs Laboratory Tests Test 05/26/20 16:20 05/26/20 20:45 Lactic Acid Level 2.2 mmol/L (0.4-2.0) 1.7 mmol/L (0.4-2.0) Microbiology 05/25/20 Urine Culture - Final, Complete 05/23/20 Blood Culture - Preliminary, Resulted NO GROWTH AFTER 2 DAYS Medications Current Medications Amino Acids/ Glycerin/ Electrolytes 1,000 ml @ 80 mls/hr [id number] IV Last administered on 05/27/20at 05:23; Start 05/26/20 at 14:30 Erythromycin (Romycin) 0.25 inch Q6HRS OU Last administered on 05/27/20at 12:36; Start 05/26/20 at 18:00 Folic Acid (Folic Acid) 1 mg DAILY PO ; Start 05/30/20 at 09:00 Piperacillin Sod/ Tazobactam Sod (Zosyn Per Pharmacy) 1 each PRN DAILY PRN MC SEE COMMENTS; Start 05/26/20 at 14:30 Piperacillin Sod/ Tazobactam Sod 3.375 gm/Sodium Chloride 50 ml @ 100 mls/hr Q6HRS IV Last administered on 05/27/20at 12:23; Start 05/26/20 at 18:00 Vitals/I & O Vital Sign - Last 24 Hours 05/26/20 05/26/20 05/26/20 05/26/20 13:04 14:00 15:19 16:09 Pulse 84 90 87 85 Resp 18 18 18 18 B/P (MAP) 152/75 (100) Pulse Ox 93 93 95 94 O2 Delivery Nasal Cannula Nasal Cannula Nasal Cannula Nasal Cannula O2 Flow Rate 3.0 3.0 3.0 3.0 05/26/20 05/26/20 05/26/20 05/26/20 17:15 18:02 20:00 20:05 Pulse 97 88 90 Resp 18 18 B/P (MAP) 152/75 (100) 152/75 (100) 174/88 (116) Pulse Ox 94 91 100 O2 Delivery Nasal Cannula Nasal Cannula Nasal Cannula Nasal Cannula O2 Flow Rate 3.0 3.0 3.0 3.0 05/26/20 05/27/20 05/27/20 05/27/20 23:26 03:45 07:00 07:40 Temp 98.2 98.4 97.7 98.2 98.4 97.7 Pulse 88 84 95 Resp 20 22 20 B/P (MAP) 157/77 (103) 153/85 (107) 130/73 (92) Pulse Ox 95 95 92 O2 Delivery Nasal Cannula Nasal Cannula Nasal Cannula Nasal Cannula O2 Flow Rate 3.0 3.0 5.0 3.0 05/27/20 11:00 Temp 98.1 98.1 Pulse 90 Resp 20 B/P (MAP) 126/77 (93) Pulse Ox 94 O2 Delivery Nasal Cannula O2 Flow Rate 3.0 Intake and Output 05/26/20 05/26/20 05/27/20 15:00 23:00 07:00 Intake Total 0 ml 1315 ml 0 ml Output Total 2300 ml 280 ml 900 ml Balance -2300 ml 1035 ml -900 ml FREEMAN RAY MD May 27, 2020 12:43
[2020-05-27] MEDS: ATORVASTATIN CALCIUM 20 MG TABLET PO SCH (21:00)
[2020-05-27] MEDS: ZOLPIDEM 5 MG TABLET. PO PRN (21:30)
--- NOTE | 2020-05-27 21:30 | CONS ---
DATE OF CONSULTATION: 05/27/2020 REFERRING PHYSICIAN: Dr. Zapata. REASON FOR CONSULTATION: Cardiopulmonary arrest with anoxic injury. HISTORY OF PRESENT ILLNESS: The patient is a 69-year-old man who had gone to the casino with his when he became nauseated and diaphoretic. They left a casino and the patient drove them home to their house where he had a drink of pop to relieve the nausea. He continued to have diaphoresis and shortness of breath. He went to a different room where the family heard a loud noise and he was unconscious. EMS was summoned to find him in ventricular fibrillation. CPR was started and he was defibrillated. The length of the code was approximately 10 minutes. In the Emergency Room, he was found to have sinus rhythm with a right bundle-branch block. He was intubated due to respiratory failure. He had another episode of ventricular tachycardia/fibrillation and was successfully defibrillated. He had ST-segment elevation myocardial infarction. He underwent cardiac catheterization and stent placement. I am asked to evaluate the neurologic status. The date of admission was 05/23/2020. His family has noticed difficulty with short-term memory and that he will ask the same questions repeatedly. PAST MEDICAL HISTORY: 1. Hernia repair. 2. Hyperlipidemia. 3. Hypertension. ALLERGIES: No known allergies to drugs. MEDICATIONS PRIOR TO ADMISSION: None reported. FAMILY HISTORY: None reported. SOCIAL HISTORY: He smokes less than 1 pack of cigarettes a day. He does not drink alcohol. He is . REVIEW OF SYSTEMS: He complains of soreness of his chest. He does not have headache. He is not aware of any cognitive loss. He is able to see and hear. He does not have abdominal pain. He does not complain of bone or joint pain. He has not had fever or rash. Does not have gastrointestinal complaints. He is hungry and they would not let him swallow. He does not complain of numbness or weakness. He has altered balance when trying to walk with therapy. PHYSICAL EXAMINATION: VITAL SIGNS: The blood pressure was 170/90, pulse 90, respirations 18, temperature 98.2 degrees Fahrenheit orally. Oximetry was 90% on room air. His weight was 68 kilograms, height 66 inches with a calculated body mass index of 24.2. GENERAL: He was alert, awake and cooperative. Speech was soft, but fluent and fairly clear. He had a limited fund of knowledge of the reason for admission. Attention and concentration appeared intact. He appeared well-groomed and well nourished. He was not oriented to name of hospital, but was oriented to month and year. NEUROLOGIC: Examination of the cranial nerves revealed visual mccullough were full to confrontation. Extraocular movements were intact. The eyes were conjugate. Pursuit movements were smooth and saccadic eye movements were without dysmetria. Pupils were 3 mm and reacted. He had conjunctival hemorrhages. Funduscopic exam did not reveal papilledema. Facial sensation was intact. The muscles of mastication and facial expression were powerful symmetrically. Hearing was intact to finger rub. The palate arched symmetrically and the tongue was midline with full motion. He had some bruising on the lateral aspects of his tongue. He had symmetric and powerful shoulder shrug. He had some limited head rotation and neck flexion. Muscle bulk and tone was normal. There was no arm or leg drift. He did not have asterixis. Power was full and symmetric in upper and lower extremities. Reflexes 2/4 and symmetric in upper and lower extremities, but absent at ankles. Toes were downgoing bilaterally. Coordination testing with [id number], [id number], fine motor and rapid alternating movements was fair. Sensory exam was intact to pain, light touch, proprioception, graphesthesia, cold, thermal and vibration. There was no extinction to double simultaneous stimulation. Gait was not testable at this time. In discussion with nursing staff when he walked with therapy, he would sometimes loses balance and would try to fall if not assisted. NECK: Auscultation of the carotid arteries did not reveal a bruit. HEART: Rhythm was regular without a murmur. EXTREMITIES: Peripheral pulses were symmetric. There was no edema or cyanosis of the extremities. LABORATORY RESULTS: CBC was performed 05/26/2020 revealing an elevated white blood cell count at 19.6. The hemoglobin, hematocrit and platelet counts were normal. Chemistries were performed on 05/25/2020. The electrolytes were normal. BUN and creatinine were normal with GFR calculating at 96.4. Glucose was elevated to 104. Calcium was low at 7.5. The liver enzymes were not elevated. Total protein was diminished at 5.2 and albumin at 1.9. Hemoglobin A1c was 5.8 on 05/24/2020. T4 free was 1.26 on 05/25/2020. PT/INR and PTT were performed 05/23/2020 with a 1.2 and 35 respectively. D-dimer was elevated on that same day. Urine drug screen was negative on 05/24/2020. Urinalysis was performed 05/24/2020 revealing trace leukocyte esterase, 1-2 red cells and 1-4 white cells and occasional squamous epithelial cells. There were a few hyaline casts. Serology was performed for coronavirus, which was negative on 05/23/2020. DIAGNOSTIC RESULTS: MRI brain was performed 05/26/2020 and did not reveal an acute intracranial process. There was small vessel disease. IMPRESSION: The patient is a 69-year-old man who had an hie-ng-rjfzsrcl cardiopulmonary arrest. He was successfully resuscitated. He did have evidence of coronary artery disease, which has been stented. His examination does reveal some short-term memory loss. This is by history and examination. He does seem to have the ability to create some short-term memory at least for some time. This is a positive prognostic sign. The most sensitive areas to anoxic injury would be short-term memory and coordination. His appendicular coordination is well preserved. His midline or walking coordination does seem to be impaired by report. He has also had dysphagia. He has been working with Speech Therapy, but has not successfully regained his swallowing ability. His voice is fairly clear and I suspect he will regain swallowing as well as short-term memory. RECOMMENDATIONS: He should continue to work with Speech Therapy to try to tolerate a modified diet. He will likely need rehabilitation for both coordination as well as cognitive deficits. Her overall prognosis is favorable. I appreciate being involved in his care. MEME STAFFORD MD DR: ROCKY/moi JOB#: [id number] / [id number] wanda Fam Dr.
[2020-05-28] MEDS: PIPERACILLIN/TAZOBACTAM 3.375 GM in IV NORMAL SALINE 50ML 50 ML IV SCH ×2 (01:11→06:14)
[2020-05-28] MEDS: ERYTHROMYCIN 0.5% OPHTH OINTMENT 1GM TUBE. OU SCH ×5 (01:11→23:58)
[2020-05-28] MEDS: AMINO AC 3%/ELECTROLYTE/GLYCER 1,000 ML IV SCH ×3 (01:21→23:58)
[2020-05-28 03:25] VITALS: BP 159/90
[2020-05-28 07:00] VITALS: BP 156/89
--- NOTE | 2020-05-28 07:05 | PDOC ---
[facility] PROGRESS NOTE Date of Service DOS: DATE: 05/28/20 TIME: 06:59 Chief Complaint Chief Complaint A/P: Cardiac arrest Acute respiratory failure status post intubation and extubated on 05/25/2020 Acute LA with severe single vessel coronary artery disease involving the right coronary artery and post-PCI with drug-eluting stent placement to the right coronary artery by Dr. Fajardo on 05/23/2020 ST-elevation myocardial infarction. Tobacco abuse disorder. Ischemic ventricular tachycardia. LEUKOCYTOSIS without fever Acute metabolic encephalopathy , likely a component of anoxic encephalopathy Severe protein-caloric malnutrition Aspiration pneumonia with chronic bronchitis, possible gram-negative and anaerobic organisms PLAN: Continue pulmonary toilet Continue empiric IV antibiotics Pending speech evaluation Aspirin 325 mg daily, Plavix 75 mg daily. off pressors and vent. Cardiology consult and Pulmonary consult. GI prophylaxis. ID CONSULT, PROCALCITONIN neurology consult, was cancelled yesterday, not by me , will request again PPN AT 85/ HR 05/26 MILD CONFUSION, knows year and month, place, cannot do serial sevens, finger to nose exam without dysmetria bilaterally ct head was cancelled yesterday, unsure why, will re-order, he admits to THC USE one week ago admits to remote hx meth abuse, but denies recent use remote hx alcohol abuse for which he was in treatment , remote memory is intact, recalls [employer] not winning many games this year 38 min cc time 05-25 OFF VENT, AWAKE , ID CONSULT 34 minutes of critical care time spent. This is a supplement to the DATA for admission. Estimated length of stay greater than 3 days due to cardiac arrest and acute STEMI. PROGNOSIS: Guarded given OUT OF HOSPITAL ARREST . History of Present Illness History of Present Illness Mr Ferreira is a 69-year-old male w/ PMHx HLD, HTN apparently was at the local casino with his and began to feel nauseated and diaphoretic. They left the casino for home. He had a drink of soda to relieve his nausea, he continued to feel short of breath. Per family, his found him after she heard a loud thud and he had passed out. EMS found him to be in V-fib on their arrival. required defibrillation and he was coded for 10 minutes prior to arrival here. EKG showed right bundle branch block. He was intubated for respiratory failure. Another episode of V-tach fibrillation but successfully defibrillated here. Code STEMI was activated. He was taken emergently to the cardiac catheterization lab, at which time he was found to have critical right coronary artery stenosis, stent was placed. Chest x-ray shows diffuse interstitial opacities in both lungs. Denies depression or anxiety. He is a smoker less than pack a day. UDS positive for benzodiazepines and amphetamine as well as cannabinoids. 05/25: Extubated. Echo with Posterobasal wall hypokinesis. The Ejection Fraction is 50-55%. Trace tricuspid regurgitation with an estimated PAP of 67 mmHg. 05/26: With elevated WBC and CRP > 100 consultation to ID placed as well as neurology consultation. MRI brain with no acute findings. Still with difficulty swallowing. 05/27: No acute events overnight. Patient is afebrile. Seen and examined bedside. Saturating 92% on 5 L nasal cannula. No concerns from nursing. Afebrile. No overnight events. Still requiring oxygen 4 L/min. He is able to eat now and says he is feeling improved. Vitals/I&O Vitals/I&O: Vital Signs Date Time Temp Pulse Resp B/P (MAP) Pulse Ox O2 Delivery O2 Flow Rate FiO2 05/28/20 03:25 98.4 93 18 159/90 (113) 94 Nasal Cannula 3.0 98.4 I & O 05/27/20 05/27/20 05/28/20 15:00 23:00 07:00 Intake Total 50 ml 1025 ml Output Total 1250 ml 700 ml Balance -1250 ml 50 ml 325 ml Physical Exam Physical Exam: GENERAL: Alert, oriented x 3, male, in no acute distress. HEENT: Normocephalic, atraumatic, anicteric. No thrush. Subconjunctival hemorrhage, more pronounced in the right eye. NECK: Supple, no JVD. LUNGS: Clear bilaterally. HEART: S1, S2. ABDOMEN: Soft, nontender, nondistended. EXTREMITIES: No edema, no cyanosis. DERMATOLOGIC: Warm, dry. No generalized rash. NEUROLOGIC: Alert, awake. Moves all 4 extremities. Still weak. PSYCHIATRIC: Calm and cooperative. PIV looks okay. General: Alert, Oriented X3, Cooperative, No acute distress, Other (RIGHT CONJUNCTIVITIS) Heart: Regular rate, Normal S1, Normal S2 Lungs: Crackles Abdomen: Normal bowel sounds, Soft, No tenderness, No hepatosplenomegaly Extremities: No cyanosis, No edema Skin: Other (patches of alopecia on scalp) Assessment and Plan Assessmemt and Plan Problems Medical Problems: (1) Cardiac arrest Status: Acute Comment Review of Relevant I have reviewed the following items gill (where applicable) has been applied. Medications: Current Medications Medications (Trade) Dose Ordered Sig/Karma Route PRN Reason Start Time Stop Time Status Last Admin Dose Admin Zolpidem Tartrate (Ambien) 5 mg PRN QHS PRN PO INSOMNIA 05/27/20 18:15 05/27/20 21:30 Justifications for Admission Other Justification CHUN SHIRLEY MD May 28, 2020 07:05
--- NOTE | 2020-05-28 08:35 | PDOC ---
PULMONARY PROGRESS NOTES DATE: 05/28/20 TIME: 08:35 Subjective Patient sitting up in the chair, extubated on 05/25 On oxygen supplementation Cough is weak Vitals Vital Signs Date Time Temp Pulse Resp B/P (MAP) Pulse Ox O2 Delivery O2 Flow Rate FiO2 05/28/20 07:00 97.8 80 20 156/89 (111) 96 Nasal Cannula 3.0 97.8 ROS: No Nausea, No Chest Pain, No Abdominal Pain, No Increase Cough General: Alert HEENT: Other Lungs: Crackles Cardiovascular: S1, S2 Abdomen: Soft, Non-tender Neuro Exam: Alert Skin: Warm Labs Laboratory Tests Test 05/26/20 12:20 05/26/20 16:20 05/26/20 20:45 White Blood Count 19.6 x10^3/uL (4.0-11.0) Red Blood Count 4.80 x10^6/uL (4.30-5.70) Hemoglobin 14.0 g/dL (13.0-17.5) Hematocrit 42.2 % (39.0-53.0) Mean Corpuscular Volume 88 fL (79-100) Mean Corpuscular Hemoglobin 29 pg (25-35) Mean Corpuscular Hemoglobin Concent 33 g/dL (31-37) Red Cell Distribution Width 13.5 % (11.5-14.5) Platelet Count 188 x10^3/uL (140-400) Neutrophils (%) (Auto) 85 % (31-73) Lymphocytes (%) (Auto) 5 % (24-48) Monocytes (%) (Auto) 10 % (0-9) Eosinophils (%) (Auto) 0 % (0-3) Basophils (%) (Auto) 0 % (0-3) Neutrophils # (Auto) 16.7 x10^3/uL (1.8-7.7) Lymphocytes # (Auto) 1.0 x10^3/uL (1.0-4.8) Monocytes # (Auto) 1.9 x10^3/uL (0.0-1.1) Eosinophils # (Auto) 0.0 x10^3/uL (0.0-0.7) Basophils # (Auto) 0.0 x10^3/uL (0.0-0.2) Lactic Acid Level 2.2 mmol/L (0.4-2.0) 1.7 mmol/L (0.4-2.0) Comments CXR Impression: Unchanged support device positioning and diffuse reticulonodular densities throughout both lungs. Impression . IMPRESSION: 1. Ycv-km-taydmocf cardiopulmonary arrest secondary to inferior wall [place]. 2. Status post emergent cardiac catheterization with PCI to the RCA. 3. ST segment elevation myocardial infarction. 4. History of alcoholism. 5. Leukocytosis, suspect reactive. ? aspiration 6. Lactic acidosis related to shw-pv-vtafgyie cardiopulmonary arrest. 7. Dysphagia 8. Aspiration pneumonia Echo report <Conclusion> Posterobasal wall hypokinesis. The Ejection Fraction is 50-55%. Transmitral Doppler flow pattern is Grade I-abnormal relaxation pattern. Trace mitral regurgitation. Trace tricuspid regurgitation with an estimated PAP of 67 mmHg. There is no evidence of significant pericardial effusion. Signed by : Jovany Fajardo, Electronically Approved : 05/26/2020 15:54:30 Plan . Follow-up with speech N.p.o. for now Oxygen supplementation DVT GI prophylaxis Outpatient pulmonary function test D/W RN and pt MESERET OTOOLE MD May 28, 2020 08:35
--- NOTE | 2020-05-28 08:40 | PDOC ---
Infectious Disease Note Subjective Subjective Patient wants to eat food No other complaints ROS ROS no n/v//d/sob Vital Sign Vital Signs Vital Signs Date Time Temp Pulse Resp B/P (MAP) Pulse Ox O2 Delivery O2 Flow Rate FiO2 05/28/20 07:00 97.8 80 20 156/89 (111) 96 Nasal Cannula 3.0 97.8 Physical Exam PHYSICAL EXAM GENERAL: Alert, oriented x 3, male, in no acute distress. HEENT: Normocephalic, atraumatic, anicteric. No thrush. Subconjunctival hemorrhage, more pronounced in the right eye. NECK: Supple, no JVD. LUNGS: Clear bilaterally. HEART: S1, S2. ABDOMEN: Soft, nontender, nondistended. EXTREMITIES: No edema, no cyanosis. DERMATOLOGIC: Warm, dry. No generalized rash. NEUROLOGIC: Alert, awake. Moves all 4 extremities. Still weak. PSYCHIATRIC: Calm and cooperative. PIV looks okay. Labs Micro Microbiology 05/26/20 Gram Stain Evaluation - Final, Resulted 05/26/20 Respiratory Culture - Preliminary, Resulted 05/26/20 Blood Culture - Preliminary, Resulted NO GROWTH AFTER 1 DAY 05/25/20 Urine Culture - Final, Complete Objective Assessment Leucocytosis multifactorial including reactive Aspiration with chronic bronchitis [id number]-[id number] cardiopulmonary arrest secondary to inferior wall myocardial infarction. Status post emergent cardiac catheterization with percutaneous coronary intervention to the right coronary artery. Acute myocardial infarction. Acute hypoxic respiratory failure , now extubated, Leukocytosis Dysphagia. Lactic acidosis related to rdj-vv-garryrnf cardiopulmonary arrest, now resolved. History of alcoholism.Urine drug screen positive. Tobaccoism Plan Plan of Care 1. Continue zosyn for now,, change to po augmentin when po allowed 2. The patient is awaiting swallow evaluation. 3. Maintain aspiration precaution. 4. Follow up labs and cultures. 5. PT and OT as tolerated. Discussed with DOTTIE. MONTRELL BROWN MD May 28, 2020 08:40
[2020-05-28] MEDS: THIAMINE INJ 100 MG, FOLIC ACID INJ 1 MG in IV NORMAL SALINE 1000ML BAG 1,000 ML IV SCH (08:48)
[2020-05-28] MEDS: FUROSEMIDE 40 MG/4 ML VIAL. IVP SCH (08:52)
[2020-05-28] MEDS: CLOPIDOGREL BISULFATE 75 MG TABLET PO SCH (08:52)
[2020-05-28] MEDS: NICOTINE 21MG PATCH. TD SCH (08:52)
[2020-05-28] MEDS: ASPIRIN ENTERIC COATED 325 MG TABLET.DR. PO SCH (08:53)
[2020-05-28] MEDS: METOPROLOL TART IMMED RELEASE 25 MG TABLET. PO SCH ×2 (08:53→21:03)
[2020-05-28] MEDS: MULTIVITAMIN with MINERAL TABLET. PO SCH (09:00)
--- NOTE | 2020-05-28 10:44 | PDOC ---
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 Mental status is improving Dysphagia, improving Coronary artery disease, myocardial infarction status-post PTCA, leucocytosis, aspiration with chronic bronchitis, respiratory failure extubated 05/25, history of alcoholism, tobaccoism Plan Continue to work with Speech Therapy Rehabilitation Objective Vital Signs Date Time Temp Pulse Resp B/P (MAP) Pulse Ox O2 Delivery O2 Flow Rate FiO2 05/28/20 08:53 80 156/89 05/28/20 07:00 97.8 20 96 Nasal Cannula 3.0 97.8 Intake and Output 05/28/20 07:00 Intake Total 1075 ml Output Total 1950 ml Balance -875 ml Intake Oral 25 ml IV Total 1050 ml Output Urine Total 1950 ml PHYSICAL EXAM Alert. Oriented to time and person, at first says he is at [facility]. PERRL. EOMI. CN: no focal findings. Muscle tone: normal. Muscle strength: 4/5 DTR: 2+ Plantar reflex: flexor Gait: not examined in bed. Sensory exam: no abnormal findings. No cerebellar signs elicited. Review of Relevant I have reviewed the following items gill (where applicable) has been applied. Labs Laboratory Tests Test 05/26/20 12:20 05/26/20 16:20 05/26/20 20:45 White Blood Count 19.6 x10^3/uL (4.0-11.0) Red Blood Count 4.80 x10^6/uL (4.30-5.70) Hemoglobin 14.0 g/dL (13.0-17.5) Hematocrit 42.2 % (39.0-53.0) Mean Corpuscular Volume 88 fL (79-100) Mean Corpuscular Hemoglobin 29 pg (25-35) Mean Corpuscular Hemoglobin Concent 33 g/dL (31-37) Red Cell Distribution Width 13.5 % (11.5-14.5) Platelet Count 188 x10^3/uL (140-400) Neutrophils (%) (Auto) 85 % (31-73) Lymphocytes (%) (Auto) 5 % (24-48) Monocytes (%) (Auto) 10 % (0-9) Eosinophils (%) (Auto) 0 % (0-3) Basophils (%) (Auto) 0 % (0-3) Neutrophils # (Auto) 16.7 x10^3/uL (1.8-7.7) Lymphocytes # (Auto) 1.0 x10^3/uL (1.0-4.8) Monocytes # (Auto) 1.9 x10^3/uL (0.0-1.1) Eosinophils # (Auto) 0.0 x10^3/uL (0.0-0.7) Basophils # (Auto) 0.0 x10^3/uL (0.0-0.2) Lactic Acid Level 2.2 mmol/L (0.4-2.0) 1.7 mmol/L (0.4-2.0) Microbiology 05/26/20 Gram Stain Evaluation - Final, Resulted 05/26/20 Respiratory Culture - Preliminary, Resulted 05/26/20 Blood Culture - Preliminary, Resulted NO GROWTH AFTER 1 DAY 05/25/20 Urine Culture - Final, Complete Medications Current Medications Sodium Chloride 1,000 ml @ 1,000 mls/hr 1X ONCE IV Last administered on 05/23/20at 20:50; Start 05/23/20 at 21:00; Stop 05/23/20 at 21:59; Status DC Propofol 100 ml @ As Directed STK-MED ONCE IV ; Start 05/23/20 at 20:57; Stop 05/23/20 at 20:57; Status DC Norepinephrine Bitartrate 8 mg/ Dextrose 258 ml @ 11.61 mls/ hr 1X ONCE IV ; Start 05/23/20 at 21:15; Stop 05/24/20 at 19:28; Status DC Magnesium Sulfate 0 ml @ As Directed STK-MED ONCE IV ; Start 05/23/20 at 21:16; Stop 05/23/20 at 21:16; Status DC Epinephrine HCl 5 mg/Sodium Chloride 255 ml @ 0.306 mls/ hr 1X ONCE IV Last administered on 05/23/20at 21:33; Start 05/23/20 at 22:00; Stop 05/26/20 at 16:01; Status DC Heparin Sodium (Porcine) (Heparin Sodium) 10,000 unit STK-MED ONCE .ROUTE ; Start 05/23/20 at 21:36; Stop 05/23/20 at 21:37; Status DC Aspirin (Aspirin Rectal Supp) 300 mg 1X ONCE MO Last administered on 05/23/20at 21:45; Start 05/23/20 at 22:30; Stop 05/23/20 at 22:31; Status DC Heparin Sodium (Porcine) (Heparin Sodium) 4,000 unit 1X ONCE IV Last administered on 05/23/20at 21:54; Start 05/23/20 at 22:00; Stop 05/23/20 at 22:01; Status DC Lidocaine HCl (Lidocaine 1% 20ml Vial) 20 ml STK-MED ONCE .ROUTE ; Start 05/23/20 at 21:55; Stop 05/23/20 at 21:56; Status DC Heparin Sodium/ Sodium Chloride 1,000 ml @ As Directed STK-MED ONCE .ROUTE ; Start 05/23/20 at 21:56; Stop 05/23/20 at 21:56; Status DC Iodixanol (Visipaque 320) 100 ml STK-MED ONCE .ROUTE ; Start 05/23/20 at 21:56; Stop 05/23/20 at 21:56; Status DC Bivalirudin (Angiomax) 250 mg STK-MED ONCE IV ; Start 05/23/20 at 21:58; Stop 05/23/20 at 21:58; Status DC Etomidate (Amidate) 20 mg STK-MED ONCE IV ; Start 05/23/20 at 22:01; Stop 05/23/20 at 22:02; Status DC Midazolam HCl (Versed) 5 mg STK-MED ONCE .ROUTE ; Start 05/23/20 at 22:01; Stop 05/23/20 at 22:02; Status DC Succinylcholine Chloride (Anectine) 200 mg STK-MED ONCE .ROUTE ; Start 05/23/20 at 22:02; Stop 05/23/20 at 22:02; Status DC Iohexol (Omnipaque 350 Mg/ml) 100 ml 1X ONCE IV ; Start 05/23/20 at 23:00; Stop 05/23/20 at 23:01; Status DC Info (CONTRAST GIVEN -- Rx MONITORING) 1 each PRN DAILY PRN MC SEE COMMENTS; Start 05/23/20 at 22:15; Stop 05/25/20 at 22:14; Status DC Piperacillin Sod/ Tazobactam Sod 4.5 gm/Sodium Chloride 100 ml @ 200 mls/hr 1X ONCE IV Last administered on 05/24/20at 00:49; Start 05/23/20 at 23:00; Stop 05/23/20 at 23:29; Status DC Heparin Sodium/ Sodium Chloride (HEPARIN for ARTERIAL LINE FLUSH) 1,000 unit 1X ONCE IART Last administered on 05/23/20at 23:19; Start 05/23/20 at 23:00; Stop 05/23/20 at 23:01; Status DC Iodixanol (Visipaque 320) 100 ml 1X ONCE IART Last administered on 05/23/20at 23:19; Start 05/23/20 at 23:00; Stop 05/23/20 at 23:01; Status DC Bivalirudin (Angiomax) 250 mg 1X ONCE IV Last administered on 05/23/20at 23:23; Start 05/23/20 at 23:00; Stop 05/23/20 at 23:01; Status DC Lidocaine HCl (Lidocaine 1% 20ml Vial) 20 ml 1X ONCE INJ Last administered on 05/23/20at 23:22; Start 05/23/20 at 23:00; Stop 05/23/20 at 23:01; Status DC Clopidogrel Bisulfate (Plavix) 600 mg 1X ONCE PO Last administered on 05/23/20at 23:23; Start 05/23/20 at 23:00; Stop 05/23/20 at 23:01; Status DC Clopidogrel Bisulfate (Plavix) 75 mg STK-MED ONCE .ROUTE ; Start 05/23/20 at 22:45; Stop 05/23/20 at 22:45; Status DC Sodium Chloride 1,000 ml @ 75 mls/hr [id number] IV Last administered on 05/25/20at 19:58; Start 05/23/20 at 23:00; Stop 05/26/20 at 14:21; Status DC Aspirin (Ecotrin) 325 mg [id number] PO Last administered on 05/28/20at 08:53; Start 05/24/20 at 08:00 Clopidogrel Bisulfate (Plavix) 75 mg DAILYWBKFT PO Last administered on 05/28/20at 08:52; Start 05/24/20 at 08:00 Metoprolol Tartrate (Lopressor) 12.5 mg BID PO Last administered on 05/28/20at 08:53; Start 05/24/20 at 09:00 Atorvastatin Calcium (Lipitor) 40 mg QHS PO Last administered on 05/24/20at 20:40; Start 05/24/20 at 21:00 Nitroglycerin (Nitrostat) 0.4 mg PRN Q5MIN PRN SL CHEST PAIN; Start 05/23/20 at 23:00 Fentanyl Citrate 30 ml @ 0 mls/hr CONT PRN IV SEE PROTOCOL Last administered on 05/25/20at 05:22; Start 05/23/20 at 23:15; Stop 05/25/20 at 13:07; Status DC Propofol 100 ml @ 0 mls/hr CONT PRN IV PER PROTOCOL Last administered on at 08:13; Start 05/23/20 at 23:15; Stop 05/25/20 at 13:07; Status DC Amiodarone HCl (Cordarone) 300 mg 1X ONCE IVP Last administered on 05/23/20at 21:23; Start 05/23/20 at 23:45; Stop 05/23/20 at 23:46; Status DC Etomidate (Amidate) 20 mg 1X ONCE IV Last administered on 05/23/20at 20:43; Start 05/24/20 at 00:00; Stop 05/24/20 at 00:03; Status DC Succinylcholine Chloride (Anectine) 100 mg 1X ONCE IV Last administered on 05/23/20at 20:43; Start 05/24/20 at 00:00; Stop 05/24/20 at 00:03; Status DC Midazolam HCl (Versed) 10 mg 1X ONCE IV Last administered on 05/23/20at 20:56; Start 05/24/20 at 00:00; Stop 05/24/20 at 00:03; Status DC Magnesium Sulfate 50 ml @ 25 mls/hr 1X ONCE IV Last administered on 05/24/20at 04:40; Start 05/24/20 at 00:30; Stop 05/24/20 at 02:29; Status DC Sodium Chloride 1,000 ml @ 1,000 mls/hr 1X ONCE IV Last administered on 05/23/20at 21:00; Start 05/24/20 at 00:00; Stop 05/24/20 at 00:59; Status DC Sodium Chloride 1,000 ml @ 1,000 mls/hr 1X ONCE IV Last administered on 05/24/20at 00:53; Start 05/24/20 at 00:00; Stop 05/24/20 at 00:59; Status DC Magnesium Sulfate/ Dextrose 100 ml @ 100 mls/hr 1X ONCE IV Last administered on 05/23/20at 21:20; Start 05/24/20 at 00:15; Stop 05/24/20 at 01:14; Status DC Epinephrine HCl (EPINEPHrine SYRINGE) 1 mg 1X ONCE IV Last administered on 05/23/20at 21:16; Start 05/24/20 at 00:15; Stop 05/24/20 at 00:20; Status DC Epinephrine HCl (EPINEPHrine SYRINGE) 1 mg 1X ONCE IV Last administered on 05/23/20at 21:29; Start 05/24/20 at 00:15; Stop 05/24/20 at 00:20; Status DC Thiamine HCl 100 mg/Folic Acid 1 mg/Sodium Chloride 1,001.2 ml @ 99.012 mls/hr 1X ONCE IV Last administered on 05/24/20at 14:31; Start 05/24/20 at 14:00; Stop 05/25/20 at 00:06; Status DC Furosemide (Lasix) 40 mg 1X ONCE IVP Last administered on 05/24/20at 14:31; Start 05/24/20 at 12:15; Stop 05/24/20 at 12:16; Status DC Furosemide (Lasix) 40 mg DAILY IVP Last administered on 05/28/20at 08:52; Start 05/25/20 at 09:00 Dexmedetomidine HCl 400 mcg/ Sodium Chloride 100 ml @ 3.255 mls/ hr CONT PRN IV PER PROTOCOL Last administered on 05/25/20at 08:11; Start 05/25/20 at 07:45; Stop 05/25/20 at 13:07; Status DC Midazolam HCl (Versed) 2 mg STK-MED ONCE .ROUTE ; Start 05/25/20 at 09:22; Stop 05/25/20 at 09:22; Status DC Midazolam HCl (Versed) 2 mg 1X ONCE IV Last administered on 05/25/20at 09:27; Start 05/25/20 at 09:30; Stop 05/25/20 at 09:31; Status DC Midazolam HCl (Versed) 2 mg 1X ONCE IV ; Start 05/25/20 at 09:30; Stop 05/25/20 at 13:07; Status DC Furosemide (Lasix) 80 mg 1X ONCE IVP ; Start 05/25/20 at 11:00; Stop 05/25/20 at 11:01; Status Cancel Ondansetron HCl (Zofran) 4 mg PRN Q6HRS PRN IVP NAUSEA/VOMITING Last administered on 05/25/20at 13:04; Start 05/25/20 at 13:00 Thiamine HCl 100 mg/Dextrose 51 ml @ 102 mls/hr 1X ONCE IV Last administered on 05/25/20at 15:28; Start 05/25/20 at 15:00; Stop 05/25/20 at 15:29; Status DC Thiamine HCl 100 mg/Folic Acid 1 mg/Sodium Chloride 1,001.2 ml @ 100 mls/ hr DAILY IV Last administered on 05/28/20at 08:48; Start 05/26/20 at 09:00; Stop 05/30/20 at 19:01 Multivitamins (Thera M Plus) 1 tab DAILY PO ; Start 05/25/20 at 14:00 Folic Acid (Folic Acid) 1 mg DAILY PO ; Start 05/30/20 at 09:00 Lorazepam (Ativan) 4 mg PRN Q1HR PRN PO For CIWA 8-14; Start 05/25/20 at 13:45 Lorazepam (Ativan) 8 mg PRN Q1HR PRN PO For CIWA 15 or greater; Start 05/25/20 at 13:45 Lorazepam (Ativan Inj) 2 mg PRN Q1HR PRN IV For CIWA 8-14; Start 05/25/20 at 13:45 Lorazepam (Ativan Inj) 4 mg PRN Q1HR PRN IV For CIWA 15 or greater; Start 05/25/20 at 13:45 Lorazepam (Ativan Inj) 2 mg PRN Q15MIN PRN IV SEE COMMENTS; Start 05/25/20 at 13:45 Lorazepam (Ativan Inj) 4 mg PRN Q15MIN PRN IV SEE COMMENTS; Start 05/25/20 at 13:45 Fentanyl Citrate (Fentanyl 2ml Vial) 50 mcg PRN Q2HR PRN IVP PAIN Last administered on 05/25/20at 15:28; Start 05/25/20 at 15:30 Nicotine (Nicoderm Cq 21mg) 1 patch DAILY TD ; Start 05/25/20 at 17:00; Stop 05/25/20 at 17:57; Status DC Adenosine (Adenocard) 12 mg STK-MED ONCE IV ; Start 05/23/20 at 12:00; Stop 05/25/20 at 15:51; Status DC Magnesium Sulfate/ Dextrose (Magnesium Sulfate PREMIX 1GM) 1 gm STK-MED ONCE IV ; Start 05/23/20 at 12:00; Stop 05/25/20 at 15:51; Status DC Epinephrine HCl (EPINEPHrine SYRINGE) 1 mg STK-MED ONCE .ROUTE ; Start 05/23/20 at 12:00; Stop 05/25/20 at 15:52; Status DC Acetaminophen (Tylenol) 650 mg PRN Q6HRS PRN PO MILD PAIN / TEMP > 100.3'F; Start 05/25/20 at 16:30 Nicotine (Nicoderm Cq 21mg) 1 patch DAILY TD Last administered on 05/28/20at 08:52; Start 05/26/20 at 08:00 Amino Acids/ Glycerin/ Electrolytes 1,000 ml @ 80 mls/hr [id number] IV Last administered on 05/28/20at 01:21; Start 05/26/20 at 14:30 Erythromycin (Romycin) 0.25 inch Q6HRS OU Last administered on 05/28/20at 06:13; Start 05/26/20 at 18:00 Piperacillin Sod/ Tazobactam Sod (Zosyn Per Pharmacy) 1 each PRN DAILY PRN MC SEE COMMENTS; Start 05/26/20 at 14:30 Piperacillin Sod/ Tazobactam Sod 3.375 gm/Sodium Chloride 50 ml @ 100 mls/hr Q6HRS IV Last administered on 05/28/20at 06:14; Start 05/26/20 at 18:00 Zolpidem Tartrate (Ambien) 5 mg PRN QHS PRN PO INSOMNIA Last administered on 05/27/20at 21:30; Start 05/27/20 at 18:15 Vitals/I & O Vital Sign - Last 24 Hours 05/27/20 05/27/20 05/27/20 05/27/20 11:00 15:00 18:26 19:30 Temp 98.1 98.2 98.8 98.1 98.2 98.8 Pulse 90 90 89 84 Resp 20 18 20 B/P (MAP) 126/77 (93) 170/90 (116) 155/80 (105) 163/86 (111) Pulse Ox 94 90 94 O2 Delivery Nasal Cannula Room Air Nasal Cannula O2 Flow Rate 3.0 3.0 05/27/20 05/27/20 05/27/20 05/28/20 20:00 21:31 23:25 03:25 Temp 98.4 98.4 98.4 98.4 Pulse 84 86 93 Resp 20 18 B/P (MAP) 163/86 159/92 (114) 159/90 (113) Pulse Ox 94 94 O2 Delivery Nasal Cannula Nasal Cannula Nasal Cannula O2 Flow Rate 2.0 3.0 3.0 05/28/20 05/28/20 07:00 08:53 Temp 97.8 97.8 Pulse 80 80 Resp 20 B/P (MAP) 156/89 (111) 156/89 Pulse Ox 96 O2 Delivery Nasal Cannula O2 Flow Rate 3.0 Intake and Output 05/27/20 05/27/20 05/28/20 15:00 23:00 07:00 Intake Total 50 ml 1025 ml Output Total 1250 ml 700 ml Balance -1250 ml 50 ml 325 ml Images MRI brain without contrast INDICATION: Post code TECHNIQUE: Multiplanar multisequence MRI of the brain was obtained without the administration of IV contrast. Comparisons: None FINDINGS: No abnormal area of increased signal on DWI sequence to suggest restricted diffusion. Visualized portions vascular flow voids are unremarkable. Scattered areas of T2/FLAIR represent signal the periventricular white matter. No focal parenchymal lesion or hemorrhage is identified. No midline shift or s ulcal effacement. Globes and intraorbital contents are normal. Craniocervical junction is normal. Midline structures are within normal limits. Bone marrow signal is normal. IMPRESSION: 1. No acute no evidence for acute ischemia. 2. Mild areas of T2/FLAIR hyperintense signal in the periventricular white matter favored represent chronic small vessel ischemic change Justicifation of Admission Dx: Justifications for Admission: Justification of Admission Dx: Yes DEX GALLEGO MD May 28, 2020 10:44
[2020-05-28 10:54] VITALS: BP 167/89
--- NOTE | 2020-05-28 11:15 | PDOC ---
VICTOR HUGO CRUZ APRN 05/28/20 1115: CARDIO Progress Notes Date and Time Date of Service 05/28/20 Time of Evaluation 1120 Subjective Subjective: No Chest Pain, No shortness of breath, No Palpitations Vitals Vitals Vital Signs Date Time Temp Pulse Resp B/P (MAP) Pulse Ox O2 Delivery O2 Flow Rate FiO2 05/28/20 10:54 97.9 79 22 167/89 (115) 96 Nasal Cannula 3.0 97.9 Weight Weight [ ] Input and Output Intake and Output Intake and Output 05/28/20 07:00 Intake Total 1075 ml Output Total 1950 ml Balance -875 ml Intake Oral 25 ml IV Total 1050 ml Output Urine Total 1950 ml Microbiology Micro Microbiology 05/26/20 Gram Stain Evaluation - Final, Resulted 05/26/20 Respiratory Culture - Preliminary, Resulted 05/26/20 Blood Culture - Preliminary, Resulted NO GROWTH AFTER 1 DAY 05/25/20 Urine Culture - Final, Complete Physical Exam HEENT: Neck Supple W Full Motion Chest: Symmetric LUNGS: Other (diminished bases) Heart: RRR (SR) Abdomen: Soft N/T Extremities: No Edema Neurology: alert, oriented, follow commands Assessment Assessment 1. Acute inferoposterior wall SD s/p PCI/JANESSA to RCA, stable and chest pain free. Tele did not show any significant arrhythmias. 2. Ischemic VT/VF/cardiac arrest: none further since PCI. 3. Acute resp failure s/p extubation, doing well. Passed swallow study today. Pulm following 4. Hypotension, off pressors. Now elevated 5. Acute diastolic HF, better compensated. 2D echo showed EF 50-55%. 6. Tobacco abuse: encouraged cessation 7. Encephalopathy; improved. MRI without acute findings Recommendations Lasix therapy Monitor tele Continue current prevention measures including DAPT with ASA/Plavix Statin therapy Increase metoprolol. Add lisinopril Risk stratification modification Cardiac rehab referral Follow up with Dr. Fajardo has been arranged. Justicifation of Admission Dx: Justifications for Admission: Justification of Admission Dx: Yes FREEMAN FAJARDO MD 05/28/201934: CARDIO Progress Notes Assessment Assessment Patient seen and examined. Agree with INSURANCE VERIFICATION SPECIALIST's assessment and plan. s/p PCI/JANESSA to RCA, chest pain free Tele did not show any further VT/VF Patient passes swallow study - advance diet as tolerated Continue DAPT DC planning ? SNF VICTOR HUGO CRUZ APRN May 28, 2020 11:15 FREEMAN FAJARDO MD May 28, 2020 19:35
[2020-05-28] MEDS: LISINOPRIL 10 MG TABLET PO SCH (14:23)
--- NOTE | 2020-05-28 14:50 | NUR ---
SS following up with discharge planning. SS reviewed pt chart and discussed with pt RN. Pt is currently requiring oxygen at three liters nasal canula. COVID19 negative. Pt now on PO diet. PT/OT recommended acute rehabilitation. SS met with pt to discuss discharge planning and acute rehabilitation. Pt declining inpatient rehabilitation and requesting outpatient rehabilitation. Pt reported that he will not stay overnight somewhere. SS will continue to follow for discharge planning. Addendum: 05/28/20 at 1453 by JESSE SAUCEDO SS Pt has no home oxygen.
[2020-05-28 15:01] VITALS: BP 154/76
[2020-05-28 19:35] VITALS: BP 158/76
[2020-05-28] MEDS: AMOXICILLIN/K CLAV 875/125MG TABLET. PO SCH (21:03)
[2020-05-28] MEDS: ATORVASTATIN CALCIUM 20 MG TABLET PO SCH (21:03)
[2020-05-28] MEDS: ZOLPIDEM 5 MG TABLET. PO PRN (22:06)
[2020-05-28 22:30] VITALS: BP 171/94
[2020-05-29 03:15] VITALS: BP 162/77
[2020-05-29] MEDS: ERYTHROMYCIN 0.5% OPHTH OINTMENT 1GM TUBE. OU SCH ×2 (05:48→14:47)
[2020-05-29 07:00] VITALS: BP 161/88
[2020-05-29 07:57] LABS: BASO # 0.1 x10^3/uL (0.0-0.2); BASO % 1 % (0-3); EOS # 0.2 x10^3/uL (0.0-0.7); EOS % 1 % (0-3); HEMATOCRIT 44.6 % (39.0-53.0); HEMOGLOBIN 14.8 g/dL (13.0-17.5); LYMPH # 1.7 x10^3/uL (1.0-4.8); LYMPH % 10 % (24-48); MEAN CORPUSCULAR HEMOGLOBIN 29 pg (25-35); MEAN CORPUSCULAR HGB CONC 33 g/dL (31-37); MEAN CORPUSCULAR VOLUME 88 fL (79-100); MONO # 2.5 x10^3/uL (0.0-1.1); MONO % 15 % (0-9); NEUT # 12.8 x10^3/uL (1.8-7.7); NEUT % 74 % (31-73); PLATELET COUNT 281 x10^3/uL (140-400); RED BLOOD COUNT 5.08 x10^6/uL (4.30-5.70); RED CELL DISTRIBUTION WIDTH 13.4 % (11.5-14.5); WHITE BLOOD COUNT 17.2 x10^3/uL (4.0-11.0)
[2020-05-29 08:09] LABS: ALBUMIN 2.1 g/dL (3.4-5.0); ALBUMIN/GLOBULIN RATIO 0.5 (1.0-1.7); CALCIUM 8.7 mg/dL (8.5-10.1); CREATININE 0.6 mg/dL (0.7-1.3); GFR 134.4; POTASSIUM 3.3 mmol/L (3.5-5.1); TOTAL BILIRUBIN 1.2 mg/dL (0.2-1.0); TOTAL PROTEIN 6.7 g/dL (6.4-8.2)
--- NOTE | 2020-05-29 08:15 | PDOC ---
Infectious Disease Note Subjective Subjective up in chair, feeling good, able to eat ROS ROS no n/v/d//sob/fever Vital Sign Vital Signs Vital Signs Date Time Temp Pulse Resp B/P (MAP) Pulse Ox O2 Delivery O2 Flow Rate FiO2 05/29/20 03:15 98.0 77 20 162/77 (105) 97 Nasal Cannula 2.0 98.0 Physical Exam PHYSICAL EXAM GENERAL: Alert, oriented x 3, male, in no acute distress. HEENT: Normocephalic, atraumatic, anicteric. No thrush. Subconjunctival hemorrhage, more pronounced in the right eye. NECK: Supple, no JVD. LUNGS: Clear bilaterally. HEART: S1, S2. ABDOMEN: Soft, nontender, nondistended. EXTREMITIES: No edema, no cyanosis. DERMATOLOGIC: Warm, dry. No generalized rash. NEUROLOGIC: Alert, awake. Moves all 4 extremities. Still weak. PSYCHIATRIC: Calm and cooperative. PIV looks okay. Labs Lab Laboratory Tests Test 05/29/20 07:25 White Blood Count 17.2 x10^3/uL (4.0-11.0) Red Blood Count 5.08 x10^6/uL (4.30-5.70) Hemoglobin 14.8 g/dL (13.0-17.5) Hematocrit 44.6 % (39.0-53.0) Mean Corpuscular Volume 88 fL (79-100) Mean Corpuscular Hemoglobin 29 pg (25-35) Mean Corpuscular Hemoglobin Concent 33 g/dL (31-37) Red Cell Distribution Width 13.4 % (11.5-14.5) Platelet Count 281 x10^3/uL (140-400) Neutrophils (%) (Auto) 74 % (31-73) Lymphocytes (%) (Auto) 10 % (24-48) Monocytes (%) (Auto) 15 % (0-9) Eosinophils (%) (Auto) 1 % (0-3) Basophils (%) (Auto) 1 % (0-3) Neutrophils # (Auto) 12.8 x10^3/uL (1.8-7.7) Lymphocytes # (Auto) 1.7 x10^3/uL (1.0-4.8) Monocytes # (Auto) 2.5 x10^3/uL (0.0-1.1) Eosinophils # (Auto) 0.2 x10^3/uL (0.0-0.7) Basophils # (Auto) 0.1 x10^3/uL (0.0-0.2) Sodium Level 139 mmol/L (136-145) Potassium Level 3.3 mmol/L (3.5-5.1) Chloride Level 103 mmol/L (98-107) Carbon Dioxide Level 27 mmol/L (21-32) Anion Gap 9 (6-14) Blood Urea Nitrogen 17 mg/dL (8-26) Creatinine 0.6 mg/dL (0.7-1.3) Estimated GFR (Cockcroft-Gault) 134.4 BUN/Creatinine Ratio 28 (6-20) Glucose Level 132 mg/dL (70-99) Calcium Level 8.7 mg/dL (8.5-10.1) Total Bilirubin 1.2 mg/dL (0.2-1.0) Aspartate Amino Transf (AST/SGOT) 22 U/L (15-37) Alanine Aminotransferase (ALT/SGPT) 29 U/L (16-63) Alkaline Phosphatase 81 U/L (46-116) Total Protein 6.7 g/dL (6.4-8.2) Albumin 2.1 g/dL (3.4-5.0) Albumin/Globulin Ratio 0.5 (1.0-1.7) Micro Microbiology 05/26/20 Gram Stain Evaluation - Final, Resulted 05/26/20 Respiratory Culture - Preliminary, Resulted 05/26/20 Blood Culture - Preliminary, Resulted NO GROWTH AFTER 1 DAY 05/25/20 Urine Culture - Final, Complete Objective Assessment Leucocytosis multifactorial including reactive Aspiration with chronic bronchitis [id number] cardiopulmonary arrest secondary to inferior wall myocardial infarction. Status post emergent cardiac catheterization with percutaneous coronary intervention to the right coronary artery. Acute myocardial infarction. Acute hypoxic respiratory failure , now extubated, Leukocytosis Dysphagia. Lactic acidosis related to [id number] cardiopulmonary arrest, now resolved. History of alcoholism.Urine drug screen positive. Tobaccoism Plan Plan of Care po augmentin pt/ot d/c soon pt refuses for rehab Discussed with DOTTIE. MONTRELL BROWN MD May 29, 2020 08:14
[2020-05-29] MEDS: CLOPIDOGREL BISULFATE 75 MG TABLET PO SCH (08:47)
[2020-05-29] MEDS: ASPIRIN ENTERIC COATED 325 MG TABLET.DR. PO SCH (08:47)
[2020-05-29] MEDS: MULTIVITAMIN with MINERAL TABLET. PO SCH (08:47)
[2020-05-29] MEDS: AMOXICILLIN/K CLAV 875/125MG TABLET. PO SCH (08:47)
[2020-05-29] MEDS: LISINOPRIL 10 MG TABLET PO SCH (08:48)
[2020-05-29] MEDS: METOPROLOL TART IMMED RELEASE 25 MG TABLET. PO SCH (08:48)
[2020-05-29] MEDS: FUROSEMIDE 40 MG/4 ML VIAL. IVP SCH (08:48)
[2020-05-29] MEDS: NICOTINE 21MG PATCH. TD SCH (08:48)
[2020-05-29] MEDS: THIAMINE INJ 100 MG, FOLIC ACID INJ 1 MG in IV NORMAL SALINE 1000ML BAG 1,000 ML IV SCH (08:54)
--- NOTE | 2020-05-29 08:57 | PDOC ---
PULMONARY PROGRESS NOTES DATE: 05/29/20 TIME: 08:56 Subjective Patient sitting up in the chair, extubated on 05/25 On oxygen supplementation Cough is weak Vitals Vital Signs Date Time Temp Pulse Resp B/P (MAP) Pulse Ox O2 Delivery O2 Flow Rate FiO2 05/29/20 07:00 97.6 85 20 161/88 (112) 95 Nasal Cannula 2.0 97.6 ROS: No Nausea, No Chest Pain, No Abdominal Pain, No Increase Cough General: Alert HEENT: Other Lungs: Crackles Cardiovascular: S1, S2 Abdomen: Soft, Non-tender Neuro Exam: Alert Skin: Warm Labs Laboratory Tests Test 05/29/20 07:25 White Blood Count 17.2 x10^3/uL (4.0-11.0) Red Blood Count 5.08 x10^6/uL (4.30-5.70) Hemoglobin 14.8 g/dL (13.0-17.5) Hematocrit 44.6 % (39.0-53.0) Mean Corpuscular Volume 88 fL (79-100) Mean Corpuscular Hemoglobin 29 pg (25-35) Mean Corpuscular Hemoglobin Concent 33 g/dL (31-37) Red Cell Distribution Width 13.4 % (11.5-14.5) Platelet Count 281 x10^3/uL (140-400) Neutrophils (%) (Auto) 74 % (31-73) Lymphocytes (%) (Auto) 10 % (24-48) Monocytes (%) (Auto) 15 % (0-9) Eosinophils (%) (Auto) 1 % (0-3) Basophils (%) (Auto) 1 % (0-3) Neutrophils # (Auto) 12.8 x10^3/uL (1.8-7.7) Lymphocytes # (Auto) 1.7 x10^3/uL (1.0-4.8) Monocytes # (Auto) 2.5 x10^3/uL (0.0-1.1) Eosinophils # (Auto) 0.2 x10^3/uL (0.0-0.7) Basophils # (Auto) 0.1 x10^3/uL (0.0-0.2) Sodium Level 139 mmol/L (136-145) Potassium Level 3.3 mmol/L (3.5-5.1) Chloride Level 103 mmol/L (98-107) Carbon Dioxide Level 27 mmol/L (21-32) Anion Gap 9 (6-14) Blood Urea Nitrogen 17 mg/dL (8-26) Creatinine 0.6 mg/dL (0.7-1.3) Estimated GFR (Cockcroft-Gault) 134.4 BUN/Creatinine Ratio 28 (6-20) Glucose Level 132 mg/dL (70-99) Calcium Level 8.7 mg/dL (8.5-10.1) Total Bilirubin 1.2 mg/dL (0.2-1.0) Aspartate Amino Transf (AST/SGOT) 22 U/L (15-37) Alanine Aminotransferase (ALT/SGPT) 29 U/L (16-63) Alkaline Phosphatase 81 U/L (46-116) Total Protein 6.7 g/dL (6.4-8.2) Albumin 2.1 g/dL (3.4-5.0) Albumin/Globulin Ratio 0.5 (1.0-1.7) Laboratory Tests Test 05/29/20 07:25 White Blood Count 17.2 x10^3/uL (4.0-11.0) Red Blood Count 5.08 x10^6/uL (4.30-5.70) Hemoglobin 14.8 g/dL (13.0-17.5) Hematocrit 44.6 % (39.0-53.0) Mean Corpuscular Volume 88 fL (79-100) Mean Corpuscular Hemoglobin 29 pg (25-35) Mean Corpuscular Hemoglobin Concent 33 g/dL (31-37) Red Cell Distribution Width 13.4 % (11.5-14.5) Platelet Count 281 x10^3/uL (140-400) Neutrophils (%) (Auto) 74 % (31-73) Lymphocytes (%) (Auto) 10 % (24-48) Monocytes (%) (Auto) 15 % (0-9) Eosinophils (%) (Auto) 1 % (0-3) Basophils (%) (Auto) 1 % (0-3) Neutrophils # (Auto) 12.8 x10^3/uL (1.8-7.7) Lymphocytes # (Auto) 1.7 x10^3/uL (1.0-4.8) Monocytes # (Auto) 2.5 x10^3/uL (0.0-1.1) Eosinophils # (Auto) 0.2 x10^3/uL (0.0-0.7) Basophils # (Auto) 0.1 x10^3/uL (0.0-0.2) Sodium Level 139 mmol/L (136-145) Potassium Level 3.3 mmol/L (3.5-5.1) Chloride Level 103 mmol/L (98-107) Carbon Dioxide Level 27 mmol/L (21-32) Anion Gap 9 (6-14) Blood Urea Nitrogen 17 mg/dL (8-26) Creatinine 0.6 mg/dL (0.7-1.3) Estimated GFR (Cockcroft-Gault) 134.4 BUN/Creatinine Ratio 28 (6-20) Glucose Level 132 mg/dL (70-99) Calcium Level 8.7 mg/dL (8.5-10.1) Total Bilirubin 1.2 mg/dL (0.2-1.0) Aspartate Amino Transf (AST/SGOT) 22 U/L (15-37) Alanine Aminotransferase (ALT/SGPT) 29 U/L (16-63) Alkaline Phosphatase 81 U/L (46-116) Total Protein 6.7 g/dL (6.4-8.2) Albumin 2.1 g/dL (3.4-5.0) Albumin/Globulin Ratio 0.5 (1.0-1.7) Comments CXR Impression: Unchanged support device positioning and diffuse reticulonodular densities throughout both lungs. Impression . IMPRESSION: 1. Pyp-tj-dblungwt cardiopulmonary arrest secondary to inferior wall AK. 2. Status post emergent cardiac catheterization with PCI to the RCA. 3. ST segment elevation myocardial infarction. 4. History of alcoholism. 5. Leukocytosis, suspect reactive. ? aspiration 6. Lactic acidosis related to uoe-qd-wabffeqo cardiopulmonary arrest. 7. Dysphagia 8. Aspiration pneumonia 9. Highly suspected COPD Echo report <Conclusion> Posterobasal wall hypokinesis. The Ejection Fraction is 50-55%. Transmitral Doppler flow pattern is Grade I-abnormal relaxation pattern. Trace mitral regurgitation. Trace tricuspid regurgitation with an estimated PAP of 67 mmHg. There is no evidence of significant pericardial effusion. Signed by : Jovany Fajardo, Electronically Approved : 05/26/2020 15:54:30 Plan . Follow-up with speech/ eating PO now Oxygen supplementation will need 6 min walk DVT GI prophylaxis Outpatient pulmonary function test ok with dc home D/W RN and pt VANE SANDERS MD May 29, 2020 08:57
[2020-05-29] MEDS ORDERED: POTASSIUM CHLORIDE 20 MEQ TABLET.ER. PO ONE (09:00)
--- NOTE | 2020-05-29 10:11 | PDOC ---
[facility] PROGRESS NOTE Date of Service DOS: DATE: 05/29/20 TIME: 10:13 Chief Complaint Chief Complaint A/P: Cardiac arrest Acute respiratory failure status post intubation and extubated on 05/25/2020 Acute PA with severe single vessel coronary artery disease involving the right coronary artery and post-PCI with drug-eluting stent placement to the right coronary artery by Dr. Fajardo on 05/23/2020 ST-elevation myocardial infarction. Tobacco abuse disorder. Ischemic ventricular tachycardia. LEUKOCYTOSIS without fever Acute metabolic encephalopathy , likely a component of anoxic encephalopathy Severe protein-caloric malnutrition Aspiration pneumonia with chronic bronchitis, possible gram-negative and anaerobic organisms PLAN: Continue pulmonary toilet Continue empiric IV antibiotics Pending speech evaluation Aspirin 325 mg daily, Plavix 75 mg daily. off pressors and vent. Cardiology consult and Pulmonary consult. GI prophylaxis. ID CONSULT, PROCALCITONIN neurology consult, was cancelled yesterday, not by me , will request again PPN AT 85/ HR 05/26 MILD CONFUSION, knows year and month, place, cannot do serial sevens, finger to nose exam without dysmetria bilaterally ct head was cancelled yesterday, unsure why, will re-order, he admits to THC USE one week ago admits to remote hx meth abuse, but denies recent use remote hx alcohol abuse for which he was in treatment , remote memory is intact, recalls [employer] not winning many games this year 38 min cc time 05-25 OFF VENT, AWAKE , ID CONSULT 34 minutes of critical care time spent. This is a supplement to the DATA for admission. Estimated length of stay greater than 3 days due to cardiac arrest and acute STEMI. PROGNOSIS: Guarded given OUT OF HOSPITAL ARREST . History of Present Illness History of Present Illness Mr Ferreira is a 69-year-old male w/ PMHx HLD, HTN [place] and began to feel nauseated and diaphoretic. [place]. He had a drink of soda to relieve his nausea, he continued to feel short of breath. Per family, his found him after she heard a loud thud and he had passed out. EMS found him to be in V-fib on their arrival. required defibrillation and he was coded for 10 minutes prior to arrival here. EKG showed right bundle branch block. He was intubated for respiratory failure. Another episode of V-tach fibrillation but successfully defibrillated here. Code STEMI was activated. He was taken emergently to the cardiac catheterization lab, at which time he was found to have critical right coronary artery stenosis, stent was placed. Chest x-ray shows diffuse interstitial opacities in both lungs. Denies depression or anxiety. He is a smoker less than pack a day. UDS positive for benzodiazepines and amphetamine as well as cannabinoids. 05/25: Extubated. Echo with Posterobasal wall hypokinesis. The Ejection Fraction is 50-55%. Trace tricuspid regurgitation with an estimated PAP of 67 mmHg. 05/26: With elevated WBC and CRP > 100 consultation to ID placed as well as neurology consultation. MRI brain with no acute findings. Still with difficulty swallowing. 05/27: No acute events overnight. Patient is afebrile. Seen and examined bedside. Saturating 92% on 5 L nasal cannula. No concerns from nursing. 05/28: Afebrile. No overnight events. Still requiring oxygen 4 L/min. He is able to eat now and says he is feeling improved. Afebrile. No overnight events. On 3 L/min of oxygen with a weak cough. Transition to oral Augmentin. He is in good spirits feeling better he is asking to go home. Consults: Pulm, ID, Cardiology Vitals/I&O Vitals/I&O: Vital Signs Date Time Temp Pulse Resp B/P (MAP) Pulse Ox O2 Delivery O2 Flow Rate FiO2 05/29/20 08:48 85 161/88 05/29/20 07:00 97.6 20 95 Nasal Cannula 2.0 97.6 I & O 05/28/20 05/28/20 05/29/20 14:56 22:56 06:56 Intake Total 120 ml 720 ml 220 ml Output Total 1400 ml 800 ml 500 ml Balance -1280 ml -80 ml -280 ml Physical Exam Physical Exam: GENERAL: Alert, oriented x 3, male, in no acute distress. HEENT: Normocephalic, atraumatic, anicteric. No thrush. Subconjunctival hemorrhage, more pronounced in the right eye. NECK: Supple, no JVD. LUNGS: Clear bilaterally. HEART: S1, S2. ABDOMEN: Soft, nontender, nondistended. EXTREMITIES: No edema, no cyanosis. DERMATOLOGIC: Warm, dry. No generalized rash. NEUROLOGIC: Alert, awake. Moves all 4 extremities. Still weak. PSYCHIATRIC: Calm and cooperative. PIV looks okay. General: Alert, Oriented X3, Cooperative, No acute distress, Other (RIGHT CONJUNCTIVITIS) Heart: Regular rate, Normal S1, Normal S2 Lungs: Crackles Abdomen: Normal bowel sounds, Soft, No tenderness, No hepatosplenomegaly Extremities: No cyanosis, No edema Skin: Other (patches of alopecia on scalp) Labs Labs: Laboratory Tests Test 05/29/20 07:25 White Blood Count 17.2 x10^3/uL (4.0-11.0) Red Blood Count 5.08 x10^6/uL (4.30-5.70) Hemoglobin 14.8 g/dL (13.0-17.5) Hematocrit 44.6 % (39.0-53.0) Mean Corpuscular Volume 88 fL (79-100) Mean Corpuscular Hemoglobin 29 pg (25-35) Mean Corpuscular Hemoglobin Concent 33 g/dL (31-37) Red Cell Distribution Width 13.4 % (11.5-14.5) Platelet Count 281 x10^3/uL (140-400) Neutrophils (%) (Auto) 74 % (31-73) Lymphocytes (%) (Auto) 10 % (24-48) Monocytes (%) (Auto) 15 % (0-9) Eosinophils (%) (Auto) 1 % (0-3) Basophils (%) (Auto) 1 % (0-3) Neutrophils # (Auto) 12.8 x10^3/uL (1.8-7.7) Lymphocytes # (Auto) 1.7 x10^3/uL (1.0-4.8) Monocytes # (Auto) 2.5 x10^3/uL (0.0-1.1) Eosinophils # (Auto) 0.2 x10^3/uL (0.0-0.7) Basophils # (Auto) 0.1 x10^3/uL (0.0-0.2) Sodium Level 139 mmol/L (136-145) Potassium Level 3.3 mmol/L (3.5-5.1) Chloride Level 103 mmol/L (98-107) Carbon Dioxide Level 27 mmol/L (21-32) Anion Gap 9 (6-14) Blood Urea Nitrogen 17 mg/dL (8-26) Creatinine 0.6 mg/dL (0.7-1.3) Estimated GFR (Cockcroft-Gault) 134.4 BUN/Creatinine Ratio 28 (6-20) Glucose Level 132 mg/dL (70-99) Calcium Level 8.7 mg/dL (8.5-10.1) Total Bilirubin 1.2 mg/dL (0.2-1.0) Aspartate Amino Transf (AST/SGOT) 22 U/L (15-37) Alanine Aminotransferase (ALT/SGPT) 29 U/L (16-63) Alkaline Phosphatase 81 U/L (46-116) Total Protein 6.7 g/dL (6.4-8.2) Albumin 2.1 g/dL (3.4-5.0) Albumin/Globulin Ratio 0.5 (1.0-1.7) Assessment and Plan Assessmemt and Plan Problems Medical Problems: (1) Cardiac arrest Status: Acute Comment Review of Relevant I have reviewed the following items gill (where applicable) has been applied. Medications: Current Medications Medications (Trade) Dose Ordered Sig/Karma Route PRN Reason Start Time Stop Time Status Last Admin Dose Admin Amoxicillin/ Clavulanate Potassium (Augmentin 875/ 125mg) 1 tab BID PO 05/28/20 21:00 05/29/20 08:47 Metoprolol Tartrate (Lopressor) 25 mg BID PO 05/28/20 21:00 05/29/20 08:48 Lisinopril (Prinivil) 10 mg DAILY PO 05/28/20 15:00 05/29/20 08:48 Potassium Chloride (Klor-Con) 40 meq 1X ONCE PO 05/29/20 09:00 05/29/20 09:01 DC 05/29/20 08:47 Justifications for Admission Other Justification CHUN SHIRLEY MD May 29, 2020 10:11
--- NOTE | 2020-05-29 10:13 | PDOC3 ---
Discharge Summary Visit Information Date of Admission: May 23, 2020 Date of Discharge: May 29, 2020 Admitting Diagnosis: Cardiac arrest Final Diagnosis Problems Medical Problems: (1) Cardiac arrest Status: Acute Brief Hospital Course Allergies Allergies Coded Allergies Type Severity Reaction Last Updated Verified No Known Drug Allergies 05/23/20 No Vital Signs Vital Signs Date Time Temp Pulse Resp B/P (MAP) Pulse Ox O2 Delivery O2 Flow Rate FiO2 05/29/20 08:48 85 161/88 05/29/20 07:00 97.6 20 95 Nasal Cannula 2.0 97.6 Lab Results Laboratory Tests Test 05/29/20 07:25 White Blood Count 17.2 x10^3/uL (4.0-11.0) Red Blood Count 5.08 x10^6/uL (4.30-5.70) Hemoglobin 14.8 g/dL (13.0-17.5) Hematocrit 44.6 % (39.0-53.0) Mean Corpuscular Volume 88 fL (79-100) Mean Corpuscular Hemoglobin 29 pg (25-35) Mean Corpuscular Hemoglobin Concent 33 g/dL (31-37) Red Cell Distribution Width 13.4 % (11.5-14.5) Platelet Count 281 x10^3/uL (140-400) Neutrophils (%) (Auto) 74 % (31-73) Lymphocytes (%) (Auto) 10 % (24-48) Monocytes (%) (Auto) 15 % (0-9) Eosinophils (%) (Auto) 1 % (0-3) Basophils (%) (Auto) 1 % (0-3) Neutrophils # (Auto) 12.8 x10^3/uL (1.8-7.7) Lymphocytes # (Auto) 1.7 x10^3/uL (1.0-4.8) Monocytes # (Auto) 2.5 x10^3/uL (0.0-1.1) Eosinophils # (Auto) 0.2 x10^3/uL (0.0-0.7) Basophils # (Auto) 0.1 x10^3/uL (0.0-0.2) Sodium Level 139 mmol/L (136-145) Potassium Level 3.3 mmol/L (3.5-5.1) Chloride Level 103 mmol/L (98-107) Carbon Dioxide Level 27 mmol/L (21-32) Anion Gap 9 (6-14) Blood Urea Nitrogen 17 mg/dL (8-26) Creatinine 0.6 mg/dL (0.7-1.3) Estimated GFR (Cockcroft-Gault) 134.4 BUN/Creatinine Ratio 28 (6-20) Glucose Level 132 mg/dL (70-99) Calcium Level 8.7 mg/dL (8.5-10.1) Total Bilirubin 1.2 mg/dL (0.2-1.0) Aspartate Amino Transf (AST/SGOT) 22 U/L (15-37) Alanine Aminotransferase (ALT/SGPT) 29 U/L (16-63) Alkaline Phosphatase 81 U/L (46-116) Total Protein 6.7 g/dL (6.4-8.2) Albumin 2.1 g/dL (3.4-5.0) Albumin/Globulin Ratio 0.5 (1.0-1.7) Laboratory Tests Test 05/29/20 07:25 White Blood Count 17.2 x10^3/uL (4.0-11.0) Red Blood Count 5.08 x10^6/uL (4.30-5.70) Hemoglobin 14.8 g/dL (13.0-17.5) Hematocrit 44.6 % (39.0-53.0) Mean Corpuscular Volume 88 fL (79-100) Mean Corpuscular Hemoglobin 29 pg (25-35) Mean Corpuscular Hemoglobin Concent 33 g/dL (31-37) Red Cell Distribution Width 13.4 % (11.5-14.5) Platelet Count 281 x10^3/uL (140-400) Neutrophils (%) (Auto) 74 % (31-73) Lymphocytes (%) (Auto) 10 % (24-48) Monocytes (%) (Auto) 15 % (0-9) Eosinophils (%) (Auto) 1 % (0-3) Basophils (%) (Auto) 1 % (0-3) Neutrophils # (Auto) 12.8 x10^3/uL (1.8-7.7) Lymphocytes # (Auto) 1.7 x10^3/uL (1.0-4.8) Monocytes # (Auto) 2.5 x10^3/uL (0.0-1.1) Eosinophils # (Auto) 0.2 x10^3/uL (0.0-0.7) Basophils # (Auto) 0.1 x10^3/uL (0.0-0.2) Sodium Level 139 mmol/L (136-145) Potassium Level 3.3 mmol/L (3.5-5.1) Chloride Level 103 mmol/L (98-107) Carbon Dioxide Level 27 mmol/L (21-32) Anion Gap 9 (6-14) Blood Urea Nitrogen 17 mg/dL (8-26) Creatinine 0.6 mg/dL (0.7-1.3) Estimated GFR (Cockcroft-Gault) 134.4 BUN/Creatinine Ratio 28 (6-20) Glucose Level 132 mg/dL (70-99) Calcium Level 8.7 mg/dL (8.5-10.1) Total Bilirubin 1.2 mg/dL (0.2-1.0) Aspartate Amino Transf (AST/SGOT) 22 U/L (15-37) Alanine Aminotransferase (ALT/SGPT) 29 U/L (16-63) Alkaline Phosphatase 81 U/L (46-116) Total Protein 6.7 g/dL (6.4-8.2) Albumin 2.1 g/dL (3.4-5.0) Albumin/Globulin Ratio 0.5 (1.0-1.7) Brief Hospital Course Mr Ferreira is a 69-year-old male [employer] w/ PMHx HLD, HTN apparently was at the local [facility] with his and began to feel nauseated and diaphoretic. [facility] the [facility] home. He had a drink of soda to relieve his nausea, he continued to feel short of breath. Per family, his found him after she heard a loud thud and he had passed out. EMS found him to be in V-fib on their arrival. required defibrillation and he was coded for 10 minutes prior to arrival here. EKG showed right bundle branch block. He was intubated for respiratory failure. Another episode of V-tach fibrillation but successfully defibrillated here. Code STEMI was activated. He was taken emergently to the cardiac catheterization lab, at which time he was found to have critical right coronary artery stenosis, stent was placed. Chest x-ray shows diffuse interstitial opacities in both lungs. Denies depression or anxiety. He is a smoker less than pack a day. UDS positive for benzodiazepines and amphetamine as well as cannabinoids. 05/25: Extubated. Echo with Posterobasal wall hypokinesis. The Ejection Fraction is 50-55%. Trace tricuspid regurgitation with an estimated PAP of 67 mmHg. 05/26: With elevated WBC and CRP > 100 consultation to ID placed as well as neurology consultation. MRI brain with no acute findings. Still with difficulty swallowing. 05/27: No acute events overnight. Patient is afebrile. Seen and examined bedside. Saturating 92% on 5 L nasal cannula. No concerns from nursing. 05/28: Afebrile. No overnight events. Still requiring oxygen 4 L/min. He is able to eat now and says he is feeling improved. Afebrile. No overnight events. On 3 L/min of oxygen with a weak cough. Transition to oral Augmentin. He is in good spirits feeling better he is asking to go home. Consults: Pulm, ID, Cardiology Problem list: Cardiac arrest Acute respiratory failure status post intubation and extubated on 05/25/2020 Acute PR with severe single vessel coronary artery disease involving the right coronary artery and post-PCI with drug-eluting stent placement to the right coronary artery by Dr. Fajardo on 05/23/2020 ST-elevation myocardial infarction. Tobacco abuse disorder - nicotine patches. He is not interested in zyban or chantix Ischemic ventricular tachycardia. LEUKOCYTOSIS without fever Acute metabolic encephalopathy , likely a component of anoxic encephalopathy Severe protein-caloric malnutrition Aspiration pneumonia with chronic bronchitis, possible gram-negative and anaero bic organisms PLAN: Continue pulmonary toilet PT/OT, and outpatient speech evaluation Cardiac rehab Aspirin 325 mg daily, Plavix 75 mg daily. PROGNOSIS: Guarded given OUT OF HOSPITAL ARREST . Follow up with climate change analyst, Dr. Fajardo, July 05 at 10:00am. Office is located at [address] [place] [address]. [facility], [address]. . Greater than 30 minutes spent on d/c home with outpatient therapy Discharge Information Condition at Discharge: Improved Follow Up: Weeks (1) Disposition/Orders: D/C to Home Scheduled Amoxicillin/Potassium Clav (Amox Tr-K Clv 875-125 Mg Tab) 1 Each Tablet, 1 TAB PO BID for Aspiration pneumonia for 5 Days, #10 Prescribed by: CHUN SHIRLEY MD on 05/29/20 1117 Aspirin (Aspirin Ec) 325 Mg Tablet.dr, 325 MG PO DAILYWBKFT for CAD for 30 Days, #30 Ref 11 Prescribed by: CHUN SHIRLEY MD on 05/29/20 1117 Atorvastatin Calcium (Atorvastatin Calcium) 20 Mg Tablet, 40 MG PO QHS for CAD/HLD for 30 Days, #60 Ref 11 Ok to sub with #30 of 40mg Atorvastatin Prescribed by: CHUN SHIRLEY MD on 05/29/20 1117 Clopidogrel Bisulfate (Clopidogrel) 75 Mg Tablet, 75 MG PO DAILYWBKFT for CAD for 30 Days, #30 Ref 11 Prescribed by: CHUN SHIRLEY MD on 05/29/20 1117 Lisinopril (Lisinopril) 10 Mg Tablet, 10 MG PO DAILY for HTN/CAD for 30 Days, #30 Ref 2 Prescribed by: CHUN SHIRLEY MD on 05/29/20 1117 Metoprolol Tartrate (Metoprolol Tartrate) 25 Mg Tablet, 25 MG PO BID for CAD for 30 Days, #60 Ref 11 Prescribed by: CHUN SHIRLEY MD on 05/29/20 1117 Scheduled PRN Nitroglycerin (Nitrostat) 0.4 Mg Tab.subl, 0.4 MG SL PRN Q5MIN PRN for CHEST PAIN for 30 Days, #9 Ref 2 Prescribed by: CHUN SHIRLEY MD on 05/29/20 1117 Justicifation of Admission Dx: Justifications for Admission: Justification of Admission Dx: Yes CHUN SHIRLEY MD May 29, 2020 10:12
[2020-05-29 11:00] VITALS: BP 153/84
[2020-05-29] MEDS ORDERED: AMOX1TAB11 PO (11:17)
[2020-05-29] MEDS ORDERED: NITR0.4T24 SL (11:17)
[2020-05-29] MEDS ORDERED: LISI10TA16 PO (11:17)
[2020-05-29] MEDS ORDERED: CLOP75TA PO (11:17)
[2020-05-29] MEDS ORDERED: ATOR20TA58 PO (11:17)
[2020-05-29] MEDS ORDERED: ASPI325T11 PO (11:17)
[2020-05-29] MEDS ORDERED: METO25TA4 PO (11:17)
--- NOTE | 2020-05-29 11:21 | NUR ---
SS following up with discharge planning. SS reviewed pt chart and discussed with pt RN. Pt is currently requiring oxygen at two liters nasal canula. COVID19 negative. Pt on PO diet. Discharge plan is to home today. Six minute walk ordered to assess oxygen needs. Script for outpatient PT/OT/and ST received. Pt reported that he wants outpatient therapy at the [facility]. SS contacted [facility], , and left voicemail for transitions specialist, Yarelis Le, ext. [phone], requesting return call regarding outpatient therapy services. SS currently awaiting return call at this time. SS will continue to follow for discharge planning.
--- NOTE | 2020-05-29 12:14 | PDOC ---
VICTOR HUGO CRUZ CAR STERE[employer] INSTALLER 05/29/20 1214: CARDIO Progress Notes Date and Time Date of Service 05/29/20 Time of Evaluation 1120 Subjective Subjective: No Chest Pain, No shortness of breath, No Palpitations Vitals Vitals Vital Signs Date Time Temp Pulse Resp B/P (MAP) Pulse Ox O2 Delivery O2 Flow Rate FiO2 05/29/20 11:00 98.0 79 20 153/84 (107) 98 Nasal Cannula 2.0 98.0 Weight Weight [ ] Input and Output Intake and Output Intake and Output 05/29/20 07:00 Intake Total 1060 ml Output Total 2700 ml Balance -1640 ml Intake Oral 1060 ml Output Urine Total 2700 ml # Voids 1 Laboratory Labs Laboratory Tests Test 05/29/20 07:25 White Blood Count 17.2 x10^3/uL (4.0-11.0) Red Blood Count 5.08 x10^6/uL (4.30-5.70) Hemoglobin 14.8 g/dL (13.0-17.5) Hematocrit 44.6 % (39.0-53.0) Mean Corpuscular Volume 88 fL (79-100) Mean Corpuscular Hemoglobin 29 pg (25-35) Mean Corpuscular Hemoglobin Concent 33 g/dL (31-37) Red Cell Distribution Width 13.4 % (11.5-14.5) Platelet Count 281 x10^3/uL (140-400) Neutrophils (%) (Auto) 74 % (31-73) Lymphocytes (%) (Auto) 10 % (24-48) Monocytes (%) (Auto) 15 % (0-9) Eosinophils (%) (Auto) 1 % (0-3) Basophils (%) (Auto) 1 % (0-3) Neutrophils # (Auto) 12.8 x10^3/uL (1.8-7.7) Lymphocytes # (Auto) 1.7 x10^3/uL (1.0-4.8) Monocytes # (Auto) 2.5 x10^3/uL (0.0-1.1) Eosinophils # (Auto) 0.2 x10^3/uL (0.0-0.7) Basophils # (Auto) 0.1 x10^3/uL (0.0-0.2) Sodium Level 139 mmol/L (136-145) Potassium Level 3.3 mmol/L (3.5-5.1) Chloride Level 103 mmol/L (98-107) Carbon Dioxide Level 27 mmol/L (21-32) Anion Gap 9 (6-14) Blood Urea Nitrogen 17 mg/dL (8-26) Creatinine 0.6 mg/dL (0.7-1.3) Estimated GFR (Cockcroft-Gault) 134.4 BUN/Creatinine Ratio 28 (6-20) Glucose Level 132 mg/dL (70-99) Calcium Level 8.7 mg/dL (8.5-10.1) Total Bilirubin 1.2 mg/dL (0.2-1.0) Aspartate Amino Transf (AST/SGOT) 22 U/L (15-37) Alanine Aminotransferase (ALT/SGPT) 29 U/L (16-63) Alkaline Phosphatase 81 U/L (46-116) Total Protein 6.7 g/dL (6.4-8.2) Albumin 2.1 g/dL (3.4-5.0) Albumin/Globulin Ratio 0.5 (1.0-1.7) Microbiology Micro Microbiology 05/26/20 Gram Stain Evaluation - Final, Complete 05/26/20 Respiratory Culture - Final, Complete 05/26/20 Blood Culture - Preliminary, Resulted NO GROWTH AFTER 2 DAYS 05/25/20 Urine Culture - Final, Complete Physical Exam HEENT: Neck Supple W Full Motion Chest: Symmetric LUNGS: Other (diminished bases) Heart: RRR (SR) Abdomen: Soft N/T Extremities: No Edema Neurology: alert, oriented, follow commands Assessment Assessment 1. Acute inferoposterior wall WV s/p PCI/JANESSA to RCA, stable and chest pain free. Tele did not show any significant arrhythmias. 2. Ischemic VT/VF/cardiac arrest: none further since PCI. 3. Acute resp failure s/p extubation, doing well. Passed swallow study. Pulm following 4. Hypotension, off pressors. Now elevated 5. Acute diastolic HF, better compensated. 2D echo showed EF 50-55%. 6. Tobacco abuse: encouraged cessation 7. Encephalopathy; improved. MRI without acute findings Recommendations Continue current prevention measures including DAPT with ASA/Plavix Statin therapy Risk stratification modification Cardiac rehab referral Follow up with Dr. Fajardo as scheduled. Justicifation of Admission Dx: Justifications for Admission: Justification of Admission Dx: Yes FREEMAN FAJARDO MD 05/29/20 1447: CARDIO Progress Notes Assessment Assessment Patient seen and examined. Agree with SATIN FINISHER's assessment and plan. s/p PCI/JANESSA to RCA, chest pain free Tele did not show any further VT/VF Continue DAPT Follow up as scheduled VICTOR HUGO CRUZ APRN May 29, 2020 12:14 FREEMAN FAJARDO MD May 29, 2020 14:47
--- NOTE | 2020-05-29 12:39 | NUR ---
SS following up with discharge planning. SS received contact from Yarelis Le at the [facility], , ext [phone], stating that pt has not seen a PCP at the [facility] for five to six years and would need to come for an appointment in order to get PT/OT/ST set up. SS met with pt and discussed. SS offered outpatient PT/OT/ST at other facility. [facility] Pt and family were provided with contact information for registration at the [facility] to schedule PCP appointment. Pt's family provided with prescription for outpatient PT/OT/ST. Pt's family reported that they will ensure that [facility] receives [facility]. Pt's family agreeable to oxygen set up with outside company if needed until pt can see a PCP at the [facility]. SS will continue to follow for discharge planning.
--- NOTE | 2020-05-29 13:08 | PDOC ---
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 Mental status is improving Dysphagia, improving Coronary artery disease, myocardial infarction status-post PTCA, leucocytosis, aspiration with chronic bronchitis, respiratory failure extubated 05/25, history of alcoholism, tobaccoism Plan Continue to work with Speech Therapy Rehabilitation Okay for discharge Follow-up with neurology as needed Subjective No complaints, wants to go home Objective Vital Signs Date Time Temp Pulse Resp B/P (MAP) Pulse Ox O2 Delivery O2 Flow Rate FiO2 05/29/20 11:00 98.0 79 20 153/84 (107) 98 Nasal Cannula 2.0 98.0 Intake and Output 05/29/20 07:00 Intake Total 1060 ml Output Total 2700 ml Balance -1640 ml Intake Oral 1060 ml Output Urine Total 2700 ml # Voids 1 PHYSICAL EXAM Alert. Oriented to time and person, still at first says he is at [facility]. PERRL. EOMI. CN: no focal findings. Muscle tone: normal. Muscle strength: 4/5 DTR: 2+ Plantar reflex: flexor Gait: not examined in bed. Sensory exam: no abnormal findings. No cerebellar signs elicited. Review of Relevant I have reviewed the following items gill (where applicable) has been applied. Labs Laboratory Tests Test 05/29/20 07:25 White Blood Count 17.2 x10^3/uL (4.0-11.0) Red Blood Count 5.08 x10^6/uL (4.30-5.70) Hemoglobin 14.8 g/dL (13.0-17.5) Hematocrit 44.6 % (39.0-53.0) Mean Corpuscular Volume 88 fL (79-100) Mean Corpuscular Hemoglobin 29 pg (25-35) Mean Corpuscular Hemoglobin Concent 33 g/dL (31-37) Red Cell Distribution Width 13.4 % (11.5-14.5) Platelet Count 281 x10^3/uL (140-400) Neutrophils (%) (Auto) 74 % (31-73) Lymphocytes (%) (Auto) 10 % (24-48) Monocytes (%) (Auto) 15 % (0-9) Eosinophils (%) (Auto) 1 % (0-3) Basophils (%) (Auto) 1 % (0-3) Neutrophils # (Auto) 12.8 x10^3/uL (1.8-7.7) Lymphocytes # (Auto) 1.7 x10^3/uL (1.0-4.8) Monocytes # (Auto) 2.5 x10^3/uL (0.0-1.1) Eosinophils # (Auto) 0.2 x10^3/uL (0.0-0.7) Basophils # (Auto) 0.1 x10^3/uL (0.0-0.2) Sodium Level 139 mmol/L (136-145) Potassium Level 3.3 mmol/L (3.5-5.1) Chloride Level 103 mmol/L (98-107) Carbon Dioxide Level 27 mmol/L (21-32) Anion Gap 9 (6-14) Blood Urea Nitrogen 17 mg/dL (8-26) Creatinine 0.6 mg/dL (0.7-1.3) Estimated GFR (Cockcroft-Gault) 134.4 BUN/Creatinine Ratio 28 (6-20) Glucose Level 132 mg/dL (70-99) Calcium Level 8.7 mg/dL (8.5-10.1) Magnesium Level 1.9 mg/dL (1.8-2.4) Total Bilirubin 1.2 mg/dL (0.2-1.0) Aspartate Amino Transf (AST/SGOT) 22 U/L (15-37) Alanine Aminotransferase (ALT/SGPT) 29 U/L (16-63) Alkaline Phosphatase 81 U/L (46-116) Total Protein 6.7 g/dL (6.4-8.2) Albumin 2.1 g/dL (3.4-5.0) Albumin/Globulin Ratio 0.5 (1.0-1.7) Laboratory Tests Test 05/29/20 07:25 White Blood Count 17.2 x10^3/uL (4.0-11.0) Red Blood Count 5.08 x10^6/uL (4.30-5.70) Hemoglobin 14.8 g/dL (13.0-17.5) Hematocrit 44.6 % (39.0-53.0) Mean Corpuscular Volume 88 fL (79-100) Mean Corpuscular Hemoglobin 29 pg (25-35) Mean Corpuscular Hemoglobin Concent 33 g/dL (31-37) Red Cell Distribution Width 13.4 % (11.5-14.5) Platelet Count 281 x10^3/uL (140-400) Neutrophils (%) (Auto) 74 % (31-73) Lymphocytes (%) (Auto) 10 % (24-48) Monocytes (%) (Auto) 15 % (0-9) Eosinophils (%) (Auto) 1 % (0-3) Basophils (%) (Auto) 1 % (0-3) Neutrophils # (Auto) 12.8 x10^3/uL (1.8-7.7) Lymphocytes # (Auto) 1.7 x10^3/uL (1.0-4.8) Monocytes # (Auto) 2.5 x10^3/uL (0.0-1.1) Eosinophils # (Auto) 0.2 x10^3/uL (0.0-0.7) Basophils # (Auto) 0.1 x10^3/uL (0.0-0.2) Sodium Level 139 mmol/L (136-145) Potassium Level 3.3 mmol/L (3.5-5.1) Chloride Level 103 mmol/L (98-107) Carbon Dioxide Level 27 mmol/L (21-32) Anion Gap 9 (6-14) Blood Urea Nitrogen 17 mg/dL (8-26) Creatinine 0.6 mg/dL (0.7-1.3) Estimated GFR (Cockcroft-Gault) 134.4 BUN/Creatinine Ratio 28 (6-20) Glucose Level 132 mg/dL (70-99) Calcium Level 8.7 mg/dL (8.5-10.1) Magnesium Level 1.9 mg/dL (1.8-2.4) Total Bilirubin 1.2 mg/dL (0.2-1.0) Aspartate Amino Transf (AST/SGOT) 22 U/L (15-37) Alanine Aminotransferase (ALT/SGPT) 29 U/L (16-63) Alkaline Phosphatase 81 U/L (46-116) Total Protein 6.7 g/dL (6.4-8.2) Albumin 2.1 g/dL (3.4-5.0) Albumin/Globulin Ratio 0.5 (1.0-1.7) Microbiology 05/26/20 Gram Stain Evaluation - Final, Complete 05/26/20 Respiratory Culture - Final, Complete 05/26/20 Blood Culture - Preliminary, Resulted NO GROWTH AFTER 2 DAYS 05/25/20 Urine Culture - Final, Complete Medications Current Medications Sodium Chloride 1,000 ml @ 1,000 mls/hr 1X ONCE IV Last administered on 05/23/20at 20:50; Start 05/23/20 at 21:00; Stop 05/23/20 at 21:59; Status DC Propofol 100 ml @ As Directed STK-MED ONCE IV ; Start 05/23/20 at 20:57; Stop 05/23/20 at 20:57; Status DC Norepinephrine Bitartrate 8 mg/ Dextrose 258 ml @ 11.61 mls/ hr 1X ONCE IV ; Start 05/23/20 at 21:15; Stop 05/24/20 at 19:28; Status DC Magnesium Sulfate 0 ml @ As Directed STK-MED ONCE IV ; Start 05/23/20 at 21:16; Stop 05/23/20 at 21:16; Status DC Epinephrine HCl 5 mg/Sodium Chloride 255 ml @ 0.306 mls/ hr 1X ONCE IV Last administered on 05/23/20at 21:33; Start 05/23/20 at 22:00; Stop 05/26/20 at 16:01; Status DC Heparin Sodium (Porcine) (Heparin Sodium) 10,000 unit STK-MED ONCE .ROUTE ; Start 05/23/20 at 21:36; Stop 05/23/20 at 21:37; Status DC Aspirin (Aspirin Rectal Supp) 300 mg 1X ONCE WV Last administered on 05/23/20at 21:45; Start 05/23/20 at 22:30; Stop 05/23/20 at 22:31; Status DC Heparin Sodium (Porcine) (Heparin Sodium) 4,000 unit 1X ONCE IV Last admi nistered on 05/23/20at 21:54; Start 05/23/20 at 22:00; Stop 05/23/20 at 22:01; Status DC Lidocaine HCl (Lidocaine 1% 20ml Vial) 20 ml STK-MED ONCE .ROUTE ; Start 05/23/20 at 21:55; Stop 05/23/20 at 21:56; Status DC Heparin Sodium/ Sodium Chloride 1,000 ml @ As Directed STK-MED ONCE .ROUTE ; Start 05/23/20 at 21:56; Stop 05/23/20 at 21:56; Status DC Iodixanol (Visipaque 320) 100 ml STK-MED ONCE .ROUTE ; Start 05/23/20 at 21:56; Stop 05/23/20 at 21:56; Status DC Bivalirudin (Angiomax) 250 mg STK-MED ONCE IV ; Start 05/23/20 at 21:58; Stop 05/23/20 at 21:58; Status DC Etomidate (Amidate) 20 mg STK-MED ONCE IV ; Start 05/23/20 at 22:01; Stop 05/23/20 at 22:02; Status DC Midazolam HCl (Versed) 5 mg STK-MED ONCE .ROUTE ; Start 05/23/20 at 22:01; Stop 05/23/20 at 22:02; Status DC Succinylcholine Chloride (Anectine) 200 mg STK-MED ONCE .ROUTE ; Start 05/23/20 at 22:02; Stop 05/23/20 at 22:02; Status DC Iohexol (Omnipaque 350 Mg/ml) 100 ml 1X ONCE IV ; Start 05/23/20 at 23:00; Stop 05/23/20 at 23:01; Status DC Info (CONTRAST GIVEN -- Rx MONITORING) 1 each PRN DAILY PRN MC SEE COMMENTS; Start 05/23/20 at 22:15; Stop 05/25/20 at 22:14; Status DC Piperacillin Sod/ Tazobactam Sod 4.5 gm/Sodium Chloride 100 ml @ 200 mls/hr 1X ONCE IV Last administered on 05/24/20at 00:49; Start 05/23/20 at 23:00; Stop 05/23/20 at 23:29; Status DC Heparin Sodium/ Sodium Chloride (HEPARIN for ARTERIAL LINE FLUSH) 1,000 unit 1X ONCE IART Last administered on 05/23/20at 23:19; Start 05/23/20 at 23:00; Stop 05/23/20 at 23:01; Status DC Iodixanol (Visipaque 320) 100 ml 1X ONCE IART Last administered on 05/23/20at 23:19; Start 05/23/20 at 23:00; Stop 05/23/20 at 23:01; Status DC Bivalirudin (Angiomax) 250 mg 1X ONCE IV Last administered on 05/23/20at 23:23; Start 05/23/20 at 23:00; Stop 05/23/20 at 23:01; Status DC Lidocaine HCl (Lidocaine 1% 20ml Vial) 20 ml 1X ONCE INJ Last administered on 05/23/20at 23:22; Start 05/23/20 at 23:00; Stop 05/23/20 at 23:01; Status DC Clopidogrel Bisulfate (Plavix) 600 mg 1X ONCE PO Last administered on 05/23/20at 23:23; Start 05/23/20 at 23:00; Stop 05/23/20 at 23:01; Status DC Clopidogrel Bisulfate (Plavix) 75 mg STK-MED ONCE .ROUTE ; Start 05/23/20 at 22:45; Stop 05/23/20 at 22:45; Status DC Sodium Chloride 1,000 ml @ 75 mls/hr [id number] IV Last administered on 05/25/20at 19:58; Start 05/23/20 at 23:00; Stop 05/26/20 at 14:21; Status DC Aspirin (Ecotrin) 325 mg DAILYWBKFT PO Last administered on 05/29/20at 08:47; Start 05/24/20 at 08:00 Clopidogrel Bisulfate (Plavix) 75 mg DAILYWBKFT PO Last administered on 05/29/20at 08:47; Start 05/24/20 at 08:00 Metoprolol Tartrate (Lopressor) 12.5 mg BID PO Last administered on 05/28/20at 08:53; Start 05/24/20 at 09:00; Stop 05/28/20 at 13:44; Status DC Atorvastatin Calcium (Lipitor) 40 mg QHS PO Last administered on 05/28/20at 21:03; Start 05/24/20 at 21:00 Nitroglycerin (Nitrostat) 0.4 mg PRN Q5MIN PRN SL CHEST PAIN; Start 05/23/20 at 23:00 Fentanyl Citrate 30 ml @ 0 mls/hr CONT PRN IV SEE PROTOCOL Last administered on 05/25/20at 05:22; Start 05/23/20 at 23:15; Stop 05/25/20 at 13:07; Status DC Propofol 100 ml @ 0 mls/hr CONT PRN IV PER PROTOCOL Last administered on 05/25/20at 08:13; Start 05/23/20 at 23:15; Stop 05/25/20 at 13:07; Status DC Amiodarone HCl (Cordarone) 300 mg 1X ONCE IVP Last administered on 05/23/20at 21:23; Start 05/23/20 at 23:45; Stop 05/23/20 at 23:46; Status DC Etomidate (Amidate) 20 mg 1X ONCE IV Last administered on 05/23/20at 20:43; Start 05/24/20 at 00:00; Stop 05/24/20 at 00:03; Status DC Succinylcholine Chloride (Anectine) 100 mg 1X ONCE IV Last administered on 05/23/20 20:43; Start 05/24/20 at 00:00; Stop 05/24/20 at 00:03; Status DC Midazolam HCl (Versed) 10 mg 1X ONCE IV Last administered on 05/23/20at 20:56; Start 05/24/20 at 00:00; Stop 05/24/20 at 00:03; Status DC Magnesium Sulfate 50 ml @ 25 mls/hr 1X ONCE IV Last administered on 05/24/20at 04:40; Start 05/24/20 at 00:30; Stop 05/24/20 at 02:29; Status DC Sodium Chloride 1,000 ml @ 1,000 mls/hr 1X ONCE IV Last administered on 05/23/20at 21:00; Start 05/24/20 at 00:00; Stop 05/24/20 at 00:59; Status DC Sodium Chloride 1,000 ml @ 1,000 mls/hr 1X ONCE IV Last administered on 05/24/20at 00:53; Start 05/24/20 at 00:00; Stop 05/24/20 at 00:59; Status DC Magnesium Sulfate/ Dextrose 100 ml @ 100 mls/hr 1X ONCE IV Last administered on 05/23/20at 21:20; Start 05/24/20 at 00:15; Stop 05/24/20 at 01:14; Status DC Epinephrine HCl (EPINEPHrine SYRINGE) 1 mg 1X ONCE IV Last administered on 05/23/20at 21:16; Start 05/24/20 at 00:15; Stop 05/24/20 at 00:20; Status DC Epinephrine HCl (EPINEPHrine SYRINGE) 1 mg 1X ONCE IV Last administered on 05/23/20at 21:29; Start 05/24/20 at 00:15; Stop 05/24/20 at 00:20; Status DC Thiamine HCl 100 mg/Folic Acid 1 mg/Sodium Chloride 1,001.2 ml @ 99.012 mls/hr 1X ONCE IV Last administered on 05/24/20at 14:31; Start 05/24/20 at 14:00; Stop 05/25/20 at 00:06; Status DC Furosemide (Lasix) 40 mg 1X ONCE IVP Last administered on 05/24/20at 14:31; Start 05/24/20 at 12:15; Stop 05/24/20 at 12:16; Status DC Furosemide (Lasix) 40 mg DAILY IVP Last administered on 05/29/20at 08:48; Start 05/25/20 at 09:00; Stop 05/29/20 at 10:08; Status DC Dexmedetomidine HCl 400 mcg/ Sodium Chloride 100 ml @ 3.255 mls/ hr CONT PRN IV PER PROTOCOL Last administered on 05/25/20at 08:11; Start 05/25/20 at 07:45; Stop 05/25/20 at 13:07; Status DC Midazolam HCl (Versed) 2 mg STK-MED ONCE .ROUTE ; Start 05/25/20 at 09:22; Stop 05/25/20 at 09:22; Status DC Midazolam HCl (Versed) 2 mg 1X ONCE IV Last administered on 05/25/20at 09:27; Start 05/25/20 at 09:30; Stop 05/25/20 at 09:31; Status DC Midazolam HCl (Versed) 2 mg 1X ONCE IV ; Start 05/25/20 at 09:30; Stop 05/25/20 at 13:07; Status DC Furosemide (Lasix) 80 mg 1X ONCE IVP ; Start 05/25/20 at 11:00; Stop 05/25/20 at 11:01; Status Cancel Ondansetron HCl (Zofran) 4 mg PRN Q6HRS PRN IVP NAUSEA/VOMITING Last administered on 05/25/20at 13:04; Start 05/25/20 at 13:00 Thiamine HCl 100 mg/Dextrose 51 ml @ 102 mls/hr 1X ONCE IV Last administered on 05/25/20at 15:28; Start 05/25/20 at 15:00; Stop 05/25/20 at 15:29; Status DC Thiamine HCl 100 mg/Folic Acid 1 mg/Sodium Chloride 1,001.2 ml @ 100 mls/ hr DAILY IV Last administered on 05/29/20at 08:54; Start 05/26/20 at 09:00; Stop 05/30/20 at 19:01 Multivitamins (Thera M Plus) 1 tab DAILY PO Last administered on 05/29/20at 08:47; Start 05/25/20 at 14:00 Folic Acid (Folic Acid) 1 mg DAILY PO ; Start 05/30/20 at 09:00 Lorazepam (Ativan) 4 mg PRN Q1HR PRN PO For CIWA 8-14; Start 05/25/20 at 13:45; Stop 05/29/20 at 10:08; Status DC Lorazepam (Ativan) 8 mg PRN Q1HR PRN PO For CIWA 15 or greater; Start 05/25/20 at 13:45; Stop 05/29/20 at 10:08; Status DC Lorazepam (Ativan Inj) 2 mg PRN Q1HR PRN IV For CIWA 8-14; Start 05/25/20 at 13:45; Stop 05/29/20 at 10:08; Status DC Lorazepam (Ativan Inj) 4 mg PRN Q1HR PRN IV For CIWA 15 or greater; Start 05/25/20 at 13:45; Stop 05/29/20 at 10:08; Status DC Lorazepam (Ativan Inj) 2 mg PRN Q15MIN PRN IV SEE COMMENTS; Start 05/25/20 at 13:45; Stop 05/28/20 at 10:53; Status DC Lorazepam (Ativan Inj) 4 mg PRN Q15MIN PRN IV SEE COMMENTS; Start 05/25/20 at 13:45; Status Cancel Fentanyl Citrate (Fentanyl 2ml Vial) 50 mcg PRN Q2HR PRN IVP PAIN Last administered on 05/25/20at 15:28; Start 05/25/20 at 15:30 Nicotine (Nicoderm Cq 21mg) 1 patch DAILY TD ; Start 05/25/20 at 17:00; Stop 05/25/20 at 17:57; Status DC Adenosine (Adenocard) 12 mg STK-MED ONCE IV ; Start 05/23/20 at 12:00; Stop 05/25/20 at 15:51; Status DC Magnesium Sulfate/ Dextrose (Magnesium Sulfate PREMIX 1GM) 1 gm STK-MED ONCE IV ; Start 05/23/20 at 12:00; Stop 05/25/20 at 15:51; Status DC Epinephrine HCl (EPINEPHrine SYRINGE) 1 mg STK-MED ONCE .ROUTE ; Start 05/23/20 at 12:00; Stop 05/25/20 at 15:52; Status DC Acetaminophen (Tylenol) 650 mg PRN Q6HRS PRN PO MILD PAIN / TEMP > 100.3'F; Start 05/25/20 at 16:30 Nicotine (Nicoderm Cq 21mg) 1 patch DAILY TD Last administered on 05/29/20at 08:48; Start 05/26/20 at 08:00 Amino Acids/ Glycerin/ Electrolytes 1,000 ml @ 80 mls/hr [id number] IV Last administered on 05/28/20at 23:58; Start 05/26/20 at 14:30; Stop 05/29/20 at 10:08; Status DC Erythromycin (Romycin) 0.25 inch Q6HRS OU Last administered on 05/29/20at 05:48; Start 05/26/20 at 18:00 Piperacillin Sod/ Tazobactam Sod (Zosyn Per Pharmacy) 1 each PRN DAILY PRN MC SEE COMMENTS; Start 05/26/20 at 14:30; Status Cancel Piperacillin Sod/ Tazobactam Sod 3.375 gm/Sodium Chloride 50 ml @ 100 mls/hr Q6HRS IV Last administered on 05/28/20at 06:14; Start 05/26/20 at 18:00; Stop 05/28/20 at 11:11; Status DC Zolpidem Tartrate (Ambien) 5 mg PRN QHS PRN PO INSOMNIA Last administered on 05/28/20at 22:06; Start 05/27/20 at 18:15 Amoxicillin/ Clavulanate Potassium (Augmentin 875/ 125mg) 1 tab BID PO Last administered on 05/29/20at 08:47; Start 05/28/20 at 21:00 Metoprolol Tartrate (Lopressor) 25 mg BID PO Last administered on 05/29/20at 08:48; Start 05/28/20 at 21:00 Lisinopril (Prinivil) 10 mg DAILY PO Last administered on 05/29/20at 08:48; Start 05/28/20 at 15:00 Potassium Chloride (Klor-Con) 40 meq 1X ONCE PO Last administered on 05/29/20at 08:47; Start 05/29/20 at 09:00; Stop 05/29/20 at 09:01; Status DC Active Scripts Active Aspirin Ec (Aspirin) 325 Mg Tablet.dr 325 Mg PO DAILYWBKFT 30 Days Lisinopril 10 Mg Tablet 10 Mg PO DAILY 30 Days Nitrostat (Nitroglycerin) 0.4 Mg Tab.subl 0.4 Mg SL PRN Q5MIN PRN 30 Days Metoprolol Tartrate 25 Mg Tablet 25 Mg PO BID 30 Days Atorvastatin Calcium 20 Mg Tablet 40 Mg PO QHS 30 Days Ok to sub with #30 of 40mg Atorvastatin Clopidogrel (Clopidogrel Bisulfate) 75 Mg Tablet 75 Mg PO DAILYWBKFT 30 Days Amox Tr-K Clv 875-125 Mg Tab (Amoxicillin/Potassium Clav) 1 Each Tablet 1 Tab PO BID 5 Days Vitals/I & O Vital Sign - Last 24 Hours 05/28/20 05/28/20 05/28/20 05/28/20 14:23 15:01 19:35 19:45 Temp 97.7 98.0 97.7 98.0 Pulse 91 92 87 Resp 20 20 B/P (MAP) 172/83 154/76 (102) 158/76 (103) Pulse Ox 99 95 O2 Delivery Nasal Cannula Nasal Cannula Nasal Cannula O2 Flow Rate 3.0 3.0 3.0 05/28/20 05/28/20 05/29/20 05/29/20 21:03 22:30 03:15 07:00 Temp 97.7 98.0 97.6 97.7 98.0 97.6 Pulse 87 74 77 85 Resp 18 20 20 B/P (MAP) 158/76 171/94 (119) 162/77 (105) 161/88 (112) Pulse Ox 98 97 95 O2 Delivery Nasal Cannula Nasal Cannula Nasal Cannula O2 Flow Rate 3.0 2.0 2.0 05/29/20 05/29/20 05/29/20 05/29/20 08:00 08:48 08:48 11:00 Temp 98.0 98.0 Pulse 85 85 79 Resp 20 B/P (MAP) 161/88 161/88 153/84 (107) Pulse Ox 98 O2 Delivery Nasal Cannula Nasal Cannula O2 Flow Rate 3.0 2.0 Intake and Output 05/28/20 05/28/20 05/29/20 15:00 23:00 07:00 Intake Total 120 ml 720 ml 220 ml Output Total 1400 ml 800 ml 500 ml Balance -1280 ml -80 ml -280 ml Justicifation of Admission Dx: Justifications for Admission: Justification of Admission Dx: Yes DEX GALLEGO MD May 29, 2020 13:08
--- NOTE | 2020-05-29 14:45 | NUR ---
SS following up with discharge planning. Six minute walk completed and script for oxygen received. SS phoned and faxed script and clinical for oxygen to [facility], ; fax [phone]. Oxygen tank provided for home. Pt's RN notified.
[2020-05-29 15:00] VITALS: BP 148/71
--- NOTE | 2020-05-29 17:58 | NUR ---
Discharge Note: AUDREY BARRAGAN Discharge instructions and discharge home medications reviewed with Patient and a copy given. All questions have been answered and understanding verbalized. The following instructions and handouts were given: Post Cardiac Cath dc teaching, cardiac diet, weakness. Discontinued iv lines and catheter intact. Patient discharged to home with out patient rehab and home oxygen.
[2020-05-30] MEDS ORDERED: FOLIC ACID 1 MG TABLET. PO SCH (09:00)
== END 2020-05-29 18:03 | disposition home or self-care (01) | DRG 853 ==
LOC: ER 20:40 → 1 WEST ICU 22:03 → 2 SOUTH 05-26 20:00
PROVIDERS: ADMIT Internal Medicine; ATTEND Internal Medicine
PROC: 06HY33Z Insertion of Infusion Device into Lower Vein, Percutaneous Approach (ICD-10-PCS; principal; 2020-05-23)
PROC: 027034Z Dilation of Coronary Artery, One Artery with Drug-eluting Intraluminal Device, Percutaneous Approach (ICD-10-PCS; 2020-05-23)
PROC: B2111ZZ Fluoroscopy of Multiple Coronary Arteries using Low Osmolar Contrast (ICD-10-PCS; 2020-05-23)
PROC: B2151ZZ Fluoroscopy of Left Heart using Low Osmolar Contrast (ICD-10-PCS; 2020-05-23)
PROC: 4A023N7 Measurement of Cardiac Sampling and Pressure, Left Heart, Percutaneous Approach (ICD-10-PCS; 2020-05-23)
PROC: 5A1945Z Respiratory Ventilation, 24-96 Consecutive Hours (ICD-10-PCS; 2020-05-23)
PROC: 0BH17EZ Insertion of Endotracheal Airway into Trachea, Via Natural or Artificial Opening (ICD-10-PCS; 2020-05-23)
DX: A41.9 Sepsis, unspecified organism (principal); I21.19 ST elevation (STEMI) myocardial infarction involving other coronary artery of inferior wall; I49.01 Ventricular fibrillation; J69.0 Pneumonitis due to inhalation of food and vomit; J96.00 Acute respiratory failure, unspecified whether with hypoxia or hypercapnia; E43 Unspecified severe protein-calorie malnutrition; I50.41 Acute combined systolic (congestive) and diastolic (congestive) heart failure; J96.01 Acute respiratory failure with hypoxia; G93.41 Metabolic encephalopathy; I46.9 Cardiac arrest, cause unspecified; E87.2 Acidosis; G93.1 Anoxic brain damage, not elsewhere classified; I47.2 Ventricular tachycardia; Z20.822 Contact with and (suspected) exposure to COVID-19; D72.828 Other elevated white blood cell count; E78.5 Hyperlipidemia, unspecified; F17.210 Nicotine dependence, cigarettes, uncomplicated; I11.0 Hypertensive heart disease with heart failure; I25.10 Atherosclerotic heart disease of native coronary artery without angina pectoris; J42 Unspecified chronic bronchitis; R13.10 Dysphagia, unspecified; Z98.61 Coronary angioplasty status; F10.20 Alcohol dependence, uncomplicated; F32.9 Major depressive disorder, single episode, unspecified; F41.9 Anxiety disorder, unspecified; I95.9 Hypotension, unspecified; F15.10 Other stimulant abuse, uncomplicated; F12.10 Cannabis abuse, uncomplicated; Z68.23 Body mass index [BMI] 23.0-23.9, adult; I25.2 Old myocardial infarction; Z79.02 Long term (current) use of antithrombotics/antiplatelets; Z79.82 Long term (current) use of aspirin; Z82.49 Family history of ischemic heart disease and other diseases of the circulatory system
CPT/HCPCS: 92941; 92950; 93458; 96361; 96365; 96367; 99291; G0269; 36415; 36600; 70551; 71045; 71046; 80048; 80053; 80061; 80307; 81001; 82805; 83036; 83605; 83735; 83880; 84145; 84439; 84484; 85007; 85025; 85379; 85610; 85730; 86140; 87040; 87070; 87086; 87205; 87426; 93005; 93306; 94002; 94618; 94760; C1725; C1760; C1769; C1874; C1887; C1892; G0238; J0153; J0171; J0282; J0330; J0583; J1644; J1940; J2250; J2405; J2543; J2704; J3010; J3411; J3475; J3490; J7030; J7050; J7060; Q9967; U0003; 92526-GN; 92610-GN; 97110-GO; 97110-GP; 97116-GP; 97530-GP; 97535-GO; C1771; G0378